=== PATIENT | female | born 1930 | race Caucasian/White ===

== ENCOUNTER 2016-11-15 04:56 | Inpatient (IN) | payer MEDICARE, OTHER ==
--- NOTE | 2016-11-15 04:58 | ED ---
General Adult HPI - General Stated complaint: fall, leg injury Time Seen by Provider: 11/15/16 04:57 Source: RN notes reviewed - History of Present Illness Initial comments: This is an 86-year-old female who states she was walking a little too fast, and she fell she couldn't get back on her feet because her left hip was hurting. Patient crawled to the phone and called EMS. Patient states she had no symptoms prior to the fall. She denies any headache she denies any numbness weakness. Patient denies any chest pain difficult breathing shortness of breath or palpitations. Patient's only complaint currently is pain in the left hip. Patient's history is poor due to a language barrier. - Related Data Home Medications Medication Instructions Recorded Confirmed ALPRAZolam [Xanax] 0.25 tab PO DAILY 01/02/16 01/03/16 Isosorbide Mononitrate ER [Imdur] 30 mg PO BID 01/02/16 01/03/16 Omeprazole [PriLOSEC] 20 mg PO BID 01/02/16 01/03/16 Zolpidem [Ambien] 10 mg PO HS 01/02/16 01/03/16 Ibuprofen [Motrin] 600 mg PO BID PRN 01/03/16 01/03/16 Levothyroxine Sodium [Synthroid] 100 mcg PO DAILY 01/03/16 01/03/16 Losartan/Hydrochlorothiazide 1 tab PO DAILY 01/03/16 01/03/16 [Hyzaar 100-25 Tablet] Allergies Allergy/AdvReac Type Severity Reaction Status Date / Time No Known Allergies Allergy Verified 01/03/16 11:32 Review of Systems ROS Statement: Those systems with pertinent positive or pertinent negative responses have been documented in the HPI. ROS Other: All systems not noted in ROS Statement are negative. Past Medical History Past Medical History: Hypertension, Thyroid Disorder Additional Past Medical History / Comment(s): kidney infection, anxiety, hypothyroidism, osteoarthritis of the left knee History of Any Multi-Drug Resistant Organisms: None Reported Past Surgical History: No Surgical Hx Reported Additional Past Surgical History / Comment(s): Bilateral cataract removal and intraocular lens implants Past Psychological History: Anxiety Smoking Status: Never smoker Past Alcohol Use History: None Reported Additional Past Alcohol Use History / Comment(s): Patient states she is a nonsmoker and denies any alcohol use. Patient is from the [facility] and speaks limited French. Past Drug Use History: None Reported - Past Family History Mother Family Medical History: Thyroid Disorder Additional Family Medical History / Comment(s): Mother at age 86 had surgery on her neck, possibly heart surgery as well. Father Additional Family Medical History / Comment(s): Father when he was young while in the [employer]. Brother(s) Additional Family Medical History / Comment(s): Patient has 3 full brothers and one half-brother with no major medical problems. Sister(s) Additional Family Medical History / Comment(s): Patient has one half sister that of cancer of unknown type. Patient does not have any children. General Exam - General Exam Comments Initial Comments: GENERAL: Patient is well-developed and well-nourished. Patient is nontoxic and well- hydrated and is in mild distress. ENT: Neck is soft and supple. No significant lymphadenopathy is noted. Oropharynx is clear. Moist mucous membranes. Neck has full range of motion without eliciting any pain. EYES: The sclera were anicteric and conjunctiva were pink and moist. Extraocular movements were intact and pupils were equal round and reactive to light. Eyelids were unremarkable. PULMONARY: Unlabored respirations. Good breath sounds bilaterally. No audible rales rhonchi or wheezing was noted. CARDIOVASCULAR: There is a regular rate and rhythm without any murmurs gallops or rubs. ABDOMEN: Soft and nontender with normal bowel sounds. No palpable organomegaly was noted. There is no palpable pulsatile mass. SKIN: Skin is clear with no lesions or rashes and otherwise unremarkable. NEUROLOGIC: Patient is alert and oriented x3. Cranial nerves II through XII are grossly intact. Motor and sensory are also intact. Normal speech, volume and content. Symmetrical smile. MUSCULOSKELETAL: Patient is unable to move the left leg secondary to hip pain. Patient has tenderness to the lateral aspect of the left hip. The leg is also externally rotated and somewhat shortened. LYMPHATICS: No significant lymphadenopathy is noted PSYCHIATRIC: Normal psychiatric evaluation. Course Vital Signs 11/15/16 04:57 Temperature 97.1 F L Pulse Rate 97 Respiratory 20 Rate Blood Pressure 178/74 O2 Sat by Pulse 98 Oximetry Medical Decision Making - Medical Decision Making EKG shows a normal sinus rhythm at 66 bpm. It was on an 84 QRS is 90 QT intervals 468 QTC is 490. Patient's EKG is compared to an old EKG there is not any significant changes noted. Hip x-ray shows intertrochanteric hip fracture. Chest x-ray shows pulmonary edema. I gave the patient Lasix because of the pulmonary edema. I spoke with Dr. Haro and he agreed to admit the patient admitted the patient with admitting orders and consult the medicine for medical clearance. - Lab Data Result diagrams: 11/15/16 05:09 11/15/16 05:09 Lab Results 11/15/16 11/15/16 11/15/16 Range/Units 05:03 05:03 05:09 WBC 13.3 H (3.8-10.6) k/uL RBC 3.36 L (3.80-5.40) m/uL Hgb 10.5 L (11.4-16.0) gm/dL Hct 31.4 L (34.0-46.0) % MCV 93.5 (80.0-100.0) fL MCH 31.2 (25.0-35.0) pg MCHC 33.4 (31.0-37.0) g/dL RDW 13.6 (11.5-15.5) % Plt Count 255 (150-450) k/uL Neutrophils % 89 % Lymphocytes % 7 % Monocytes % 3 % Eosinophils % 1 % Basophils % 0 % Neutrophils # 11.8 H (1.3-7.7) k/uL Lymphocytes # 0.9 L (1.0-4.8) k/uL Monocytes # 0.5 (0-1.0) k/uL Eosinophils # 0.1 (0-0.7) k/uL Basophils # 0.0 (0-0.2) k/uL PT (9.0-12.0) sec INR (<1.1) APTT (22.0-30.0) sec Sodium (137-145) mmol/L Potassium (3.5-5.1) mmol/L Chloride (98-107) mmol/L Carbon Dioxide (22-30) mmol/L Anion Gap mmol/L BUN (7-17) mg/dL Creatinine (0.52-1.04) mg/dL Est GFR (MDRD) Af Amer (>60 ml/min/1.73 sqM) Est GFR (MDRD) Non-Af (>60 ml/min/1.73 sqM) Glucose (74-99) mg/dL Calcium (8.4-10.2) mg/dL Total Bilirubin (0.2-1.3) mg/dL AST (14-36) U/L ALT (9-52) U/L Alkaline Phosphatase (38-126) U/L Total Creatine Kinase 170 H (30-135) U/L CK-MB (CK-2) 2.7 H* (0.0-2.4) ng/mL CK-MB (CK-2) Rel Index 1.6 Troponin I 0.015 (0.000-0.034) ng/mL NT-Pro-B Natriuret Pep 1540 pg/mL Total Protein (6.3-8.2) g/dL Albumin (3.5-5.0) g/dL 11/15/16 11/15/16 Range/Units 05:09 05:09 WBC (3.8-10.6) k/uL RBC (3.80-5.40) m/uL Hgb (11.4-16.0) gm/dL Hct (34.0-46.0) % MCV (80.0-100.0) fL MCH (25.0-35.0) pg MCHC (31.0-37.0) g/dL RDW (11.5-15.5) % Plt Count (150-450) k/uL Neutrophils % % Lymphocytes % % Monocytes % % Eosinophils % % Basophils % % Neutrophils # (1.3-7.7) k/uL Lymphocytes # (1.0-4.8) k/uL Monocytes # (0-1.0) k/uL Eosinophils # (0-0.7) k/uL Basophils # (0-0.2) k/uL PT 11.1 (9.0-12.0) sec INR 1.1 (<1.1) APTT 22.7 (22.0-30.0) sec Sodium 140 (137-145) mmol/L Potassium 3.2 L (3.5-5.1) mmol/L Chloride 101 (98-107) mmol/L Carbon Dioxide 28 (22-30) mmol/L Anion Gap 11 mmol/L BUN 28 H (7-17) mg/dL Creatinine 1.31 H (0.52-1.04) mg/dL Est GFR (MDRD) Af Amer 46 (>60 ml/min/1.73 sqM) Est GFR (MDRD) Non-Af 38 (>60 ml/min/1.73 sqM) Glucose 169 H (74-99) mg/dL Calcium 8.6 (8.4-10.2) mg/dL Total Bilirubin 0.5 (0.2-1.3) mg/dL AST 22 (14-36) U/L ALT 27 (9-52) U/L Alkaline Phosphatase 101 (38-126) U/L Total Creatine Kinase (30-135) U/L CK-MB (CK-2) (0.0-2.4) ng/mL CK-MB (CK-2) Rel Index Troponin I (0.000-0.034) ng/mL NT-Pro-B Natriuret Pep pg/mL Total Protein 6.5 (6.3-8.2) g/dL Albumin 3.5 (3.5-5.0) g/dL Critical Care Time Critical Care Time: Yes Total Critical Care Time: 35 Disposition Clinical Impression: Fracture, intertrochanteric, left femur, Acute pulmonary edema Disposition: ADMITTED IP TO THIS [facility] Time of Disposition: 06:17
[2016-11-15 05:20] LABS: Basophils % (A) 0 %; CH 31.7; CHCM 34.1; Eosinophils # (A) 0.1 k/uL (0-0.7); Eosinophils % (A) 1 %; HCT 31.4 % (34.0-46.0); HDW 3.09; HGB 10.5 gm/dL (11.4-16.0); Luc # (Auto) 0.08; Luc % (Auto) 1; Lymphocytes # (A) 0.9 k/uL (1.0-4.8); Lymphocytes % (A) 7 %; MCH 31.2 pg (25.0-35.0); MCHC 33.4 g/dL (31.0-37.0); MCV 93.5 fL (80.0-100.0); Mean Platelet Volume 7.6; Monocytes # (A) 0.5 k/uL (0-1.0); Monocytes % (A) 3 %; Neutrophils # (A) 11.8 k/uL (1.3-7.7); Neutrophils % (A) 89 %; RBC 3.36 m/uL (3.80-5.40); RDW 13.6 % (11.5-15.5); WBC 13.3 k/uL (3.8-10.6); WBC (Perox) 13.18
[2016-11-15 05:30] LABS: Calcium 8.6 mg/dL (8.4-10.2); Potassium 3.2 mmol/L (3.5-5.1); Total Bilirubin 0.5 mg/dL (0.2-1.3); Total Protein 6.5 g/dL (6.3-8.2)
[2016-11-15 05:40] LABS: INR 1.1 (<1.1); Partial Thromboplastin Time 22.7 sec (22.0-30.0); Prothrombin Time 11.1 sec (9.0-12.0)
[2016-11-15 06:08] LABS: Creatine Kinase MB 2.7 ng/mL (0.0-2.4); Troponin I 0.015 ng/mL (0.000-0.034)
[2016-11-15] MEDS: FUROSEMIDE 10 MG/ML 4 ML VIAL IV STA ×2 (06:12→08:48)
--- NOTE | 2016-11-15 06:12 | XR ---
EXAMINATION TYPE: XR chest 2V DATE OF EXAM: 11/15/2016 5:20 AM COMPARISON: 01/15/2016 HISTORY: Difficulty in breathing, fall, weakness TECHNIQUE: Frontal and lateral views of the chest are obtained. FINDINGS: There is suggestion of mild CHF changes with perihilar pulmonary edema. There is possibility of chron ic interstitial lung disease changes. There is no focal pneumonia pleural effusion, or pneumothorax seen. The cardiac silhouette size is w ithin normal limits. The osseous structures are intact. IMPRESSION: 1. There is suggestion of mild CHF and perihilar pulmonary edema. 2. No focal pneumonia.
--- NOTE | 2016-11-15 06:15 | XR ---
EXAMINATION TYPE: XR Hip LT and AP Pelvis DATE OF EXAM: 11/15/2016 5:20 AM COMPARISON: NONE HISTORY: Left hip pain from fall TECHNIQUE: A single AP view of the pelvis is obtained. Two views of the left hip are obtained. FINDINGS: There is no acute fracture/dislocation evident in the pelvis. [id number] degenerativ e changes are present in both hip joints lumbosacral spine and sacroiliac joints. Vascular calcificat ions are noted. Two views of left hip show an acute comminuted intertrochanteric displaced fracture with superior dis placement of distal fracture fragment. Soft tissue swelling is suggested around the fracture site of proximal left femur.. IMPRESSION: 1. Acute comminuted displaced intertrochanteric fracture of left femur with surrounding soft tissue s welling. 2. Mild to moderate degenerative changes in the pelvic bones.
[2016-11-15] MEDS ORDERED: FUROSEMIDE 10 MG/ML 4 ML VIAL IV SCH (06:30)
[2016-11-15] MEDS: FUROSEMIDE 10 MG/ML 2 ML VIAL IV SCH ×3 (08:49→23:00)
--- NOTE | 2016-11-15 11:02 | ECHOF ---
Referral Reason:preop, eval valves, lvf MEASUREMENTS -------- HEIGHT: 160.0 cm WEIGHT: 72.6 kg BP: 160/81 IVSd: 1.4 cm (0.6 - 1.1) LVIDd: 3.5 cm (3.9 - 5.3) LVPWd: 1.3 cm (0.6 - 1.1) IVSs: 1.7 cm LVIDs: 1.8 cm LVPWs: 1.9 cm Ao Diam: 2.3 cm (2.0 - 3.7) AV Cusp: 1.1 cm (1.5 - 2.6) LA Diam: 3.6 cm (2.7 - 3.8) MV EXCURSION: 13.883 mm (> 18.000) MV EF SLOPE: 28 mm/s (70 - 150) EPSS: 1.4 cm MV E John: 1.02 m/s MV DecT: 323 ms MV A John: 1.02 m/s MV E/A Ratio: 1.00 AV maxP.20 mmHg AV meanP.23 mmHg AR PHT: 412 ms RAP: 5.00 mmHg RVSP: 11.87 mmHg FINDINGS -------- Sinus rhythm. This was a technically good study. There is mild concentric left ventricular hypertrophy. Overall left ventricular systolic function is normal with, an EF between 55 - 60 %. The right ventricle is normal in size and function. The left atrium is normal in size. The right atrium is normal in size. Aortic valve is trileaflet and is mildly thickened. Trace to mild aortic regurgitation. The mitral valve leaflets are mildly thickened. Mild mitral annular calcification present. Mild mitral regurgitation is present. Mild tricuspid regurgitation present. The right ventricular systolic pressure, as measured by Doppler, is 11.87mmHg. Trace/mild (physiologic) pulmonic regurgitation. The aortic root size is normal. The pericardium is normal. CONCLUSIONS -------- 1. Sinus rhythm. 2. The mitral valve leaflets are mildly thickened. 3. Mild mitral annular calcification present. 4. Mild mitral regurgitation is present. 5. Mild tricuspid regurgitation present. 6. The right ventricular systolic pressure, as measured by Doppler, is 11.87mmHg. 7. Trace/mild (physiologic) pulmonic regurgitation. 8. The aortic root size is normal. 9. The pericardium is normal. 10. This was a technically good study. 11. There is mild concentric left ventricular hypertrophy. 12. Overall left ventricular systolic function is normal with, an EF between 55 - 60 %. 13. The right ventricle is normal in size and function. 14. The left atrium is normal in size. 15. The right atrium is normal in size. 16. Aortic valve is trileaflet and is mildly thickened. 17. Trace to mild aortic regurgitation. [employer]AL [employer]CISION MACHINE ASSEMBLER: Brit Villalpando RDCS
--- NOTE | 2016-11-15 11:07 | P.CONS ---
History of Present Illness - Reason for Consult Consult date: 11/15/15 Preoperative medical clearance Requesting physician: Justino Haro - Chief Complaint Left IT fracture - History of Present Illness This is an 86-year-old female one of Dr. Villagran with a previous medical history significant for hypertension and hypertensive cardiovascular disease, hypothyroidism, osteoarthritis, anxiety, CAD post left heart catheter physician back in December 2015 that showed critical stenosis of the LAD and the LCx along with severe aortic valve stenosis, patient was admitted back and drover service in 01/03/2016 when she was admitted to the hospital with difficulty in breathing thought to be due to acute on top of chronic diastolic heart failure along with severe aortic valve stenosis at that time she was referred to [facility] for staging angioplasty and TAVR , patient apparently fell at home and landed on her left hip and she ended up coming to the ER at [facility] where she was found to have an acute displaced IT fracture of the left femur, she was admitted under orthopedic surgery we were asked to see the patient for clearance and she will be seen in consultation by cardiology for medical and cardiology clearance. We will obtain echocardiogram at this point in time to evaluate her LV function. Review of Systems Constitutional: Denies chills, Denies chronic headaches, Denies lethargy, Denies malaise, Denies weakness, Denies weight gain, Denies weight loss Eyes: denies blurred vision, denies bulging eye Ears: deny: decreased hearing Ears, nose, mouth and throat: Denies dental pain, Denies neck lump, Denies swelling in throat, Denies sore throat Cardiovascular: Reports decreased exercise tolerance, Reports dyspnea on exertion, Reports high blood pressure, Reports shortness of breath, Denies chest pain, Denies irregular heart beat, Denies rapid heart beat, Denies syncope Respiratory: Reports dyspnea, Denies congestion, Denies cough, Denies cough with sputum, Denies home oxygen, Denies sleep apnea, Denies snoring, Denies wheezing Gastrointestinal: Denies abdominal pain, Denies bloating, Denies change in bowel habits, Denies coffee ground emesis, Denies diarrhea, Denies heartburn, Denies hematemesis, Denies hematochezia, Denies loss of appetite, Denies nausea , Denies vomiting Genitourinary: Denies dysuria, Denies hematuria Menstruation: Reports postmenopausal Musculoskeletal: Reports fractures, Reports frequent falls, Reports gait dysfunction, Denies myalgias Musculoskeletal: left: hip pain, hip stiffness, hip swelling, absent: ankle pain , ankle stiffness, ankle swelling, elbow pain, elbow stiffness, elbow swelling, foot pain, foot stiffness, foot swelling, hand pain, hand stiffness, hand swelling, knee pain, knee stiffness, knee swelling, shoulder pain, shoulder stiffness, shoulder swelling, wrist pain, wrist stiffness, wrist swelling Integumentary: Denies pruritus, Denies rash Neurological: Denies numbness, Denies weakness Psychiatric: Denies anxiety, Denies depression Endocrine: Denies fatigue, Denies weight change Past Medical History Past Medical History: Coronary Artery Disease (CAD), GERD/Reflux, Hyperlipidemia , Hypertension, Osteoarthritis (OA), Renal Disease, Thyroid Disorder Additional Past Medical History / Comment(s): Pt is a Religious and cannot receive blood. 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 That was done at [facility]. History of Any Multi-Drug Resistant Organisms: None Reported Past Surgical History: No Surgical Hx Reported, Cardiac Valve Replacement, Heart Catheterization Additional Past Surgical History / Comment(s): 01/2016 TAVR at [facility] , bilateral cataract removal and intraocular lens implants with complications. Past Anesthesia/Blood Transfusion Reactions: No Reported Reaction Past Psychological History: Anxiety Additional Psychological History / Comment(s): Pt resides alone. She has caretakers with whom she is very close. She has a cane and walker. She is a Religious and receive no blood. Smoking Status: Never smoker Past Alcohol Use History: None Reported Additional Past Alcohol Use History / Comment(s): Patient states she is a nonsmoker and denies any alcohol use. Patient is from the [facility] and speaks limited Tajik. Past Drug Use History: None Reported - Past Family History Mother Family Medical History: Thyroid Disorder Additional Family Medical History / Comment(s): Mother at age 86 had surgery on her neck, possibly heart surgery as well. Father Additional Family Medical History / Comment(s): Father when he was young while in the [employer]. Brother(s) Additional Family Medical History / Comment(s): Patient has 3 full brothers and one half-brother with no major medical problems. Sister(s) Additional Family Medical History / Comment(s): Patient has one half sister that of cancer of unknown type. Patient does not have any children. Medications and Allergies Home Medications Medication Instructions Recorded Confirmed Type ALPRAZolam [Xanax] 0.25 tab PO DAILY PRN 01/02/16 11/15/16 History Isosorbide Mononitrate ER [Imdur] 30 mg PO DAILY 01/02/16 11/15/16 History Omeprazole [PriLOSEC] 40 mg PO DAILY 01/02/16 11/15/16 History Zolpidem [Ambien] 10 mg PO HS 01/02/16 11/15/16 History Ibuprofen [Motrin] 600 mg PO BID PRN 01/03/16 11/15/16 History Levothyroxine Sodium [Synthroid] 100 mcg PO DAILY 01/03/16 11/15/16 History Aspirin EC [Ecotrin Low Dose] 81 mg PO DAILY 11/15/16 11/15/16 History Atorvastatin [Lipitor] 40 mg PO DAILY 11/15/16 11/15/16 History Carvedilol [Coreg] 3.125 mg PO BID 11/15/16 11/15/16 History Clopidogrel [Plavix] 75 mg PO DAILY 11/15/16 11/15/16 History Ferrograd Folic 325/0.35mg Xr Tab 1 tab PO BID 11/15/16 11/15/16 History Furosemide [Lasix] 40 mg PO BID 11/15/16 11/15/16 History Multivitamins, Thera [Multivitamin] 1 tab PO DAILY 11/15/16 11/15/16 History Allergies Allergy/AdvReac Type Severity Reaction Status Date / Time ampicillin Allergy Swelling Verified 11/15/16 07:17 erythromycin base Allergy Swelling Verified 11/15/16 07:17 Physical Exam Vitals: Vital Signs Pulse Pulse Resp BP BP Pulse Ox 11/15/16 08:57 77 18 160/81 98 11/15/16 07:31 62 16 187/77 96 Intake and Output 01/08/17 01/09/17 01/09/17 22:59 06:59 14:59 Other: Voiding Method Indwelling Catheter - Constitutional General appearance: average body habitus, no acute distress - EENT Eyes: anicteric sclerae, PERRLA, no ptosis, no scleral icterus, normal appearance ENT: hearing grossly normal, normal oropharynx, no thrush Ears: bilateral: normal - Neck Neck: no lymphadenopathy, normal ROM, no rigidity, no stridor, no thyromegaly Carotids: bilateral: upstroke normal Thyroid: bilateral: normal size - Respiratory Respiratory: bilateral: diminished, negative: dullness, rales, rhonchi, wheezing , prolonged expiration, prolonged inspiration - Cardiovascular Rhythm: regular Heart sounds: normal: S1, S2 Abnormal Heart Sounds: systolic murmur, no rub, no click - Gastrointestinal General gastrointestinal: normal bowel sounds, soft, no splenomegaly, no tenderness, umbilical hernia - Integumentary Integumentary: normal, normal turgor - Neurologic Neurologic: CNII-XII intact - Musculoskeletal Musculoskeletal: generalized weakness - Psychiatric Psychiatric: A&O x's 3, appropriate affect, intact judgment & insight Results CBC & Chem 7: 11/15/16 05:09 11/15/16 05:09 Assessment and Plan Plan: Assessment and plan: 1. Status post a fall with left IT fracture. Patient is scheduled to go for intramedullary nailing of the left hip, patient has a significant cardiac history and she underwent a TAVR at to [facility] back in January 2016, and I believe she underwent staging angioplasty of LAD and LCx, we will obtain echo care gram at this time to evaluate LV function, we will obtain cardiology consultation, patient did receive at a dose of Lasix 40 mg IV push earlier today because of significant shortness of breath thought to be due to acute diastolic heart failure, we will obtain cardiology consultation from Dr. Leiva. 2. CAD post angioplasty of LAD and LCx. Hold aspirin and Plavix for now, continue Imdur 30 mg orally once every day, continue Coreg 3.125 mg orally twice every day, continue Lipitor 40 mg orally once every day. 3. History of severe aortic valve stenosis status post TAVR, we will obtain echo care gram for evaluation. 4. Chronic diastolic heart failure. Patient did receive a dose of Lasix, hip ever IV, start the patient on Coreg 3.125 mg orally twice every day. 5. Chronic kidney disease stage III. Stable at this time. 6. Paroxysmal atrial fibrillation. Currently in sinus rhythm. Stable. 7. Hypothyroidism. Continue Synthroid 100 g orally once every day. 8. History of gout.. Stable at this time. 9. Osteoarthritis. Stable. 10. Anxiety disorder. Stable at this time. 11. DVT prophylaxis. Patient will go on Lovenox 30 mg subcutaneously once every day. 12. GI prophylaxis. Continue omeprazole 20 mg orally once every day. 13. Thank you Dr. Haro for allowing me to participate in the care of your patient, patient will be seen in consultation by cardiology prior to her surgical intervention, I do not see any contraindication for the proposed surgical intervention, we will continue to follow the patient along with you.
[2016-11-15] MEDS: NITROGLYCERIN OINT 1 INCH/GM PACKET TOPICAL SCH ×4 (11:52→20:46)
[2016-11-15] MEDS: POTASSIUM CHLORIDE 20 MEQ, LIDOCAINE 2% INJ 20 MG in SODIUM CHLORIDE 0.9% 100 ML IVPB SCH ×7 (11:52→17:58)
[2016-11-15] MEDS ORDERED: hydrALAZINE HCL 20 MG/ML 1 ML VIAL IVP PRN (12:02)
--- NOTE | 2016-11-15 12:17 | P.CRDCN ---
History of Present Illness Consult date: 11/15/16 Chief complaint: Pain all over the body History of present illness: This is a pleasant 86-year-old female patient with a past medical history significant for CAD, aortic valve disease and status post TAVR, hypertension, and dyslipidemia, fell at home and fractured her left hip. The plan is to proceed with left hip surgery. From the cardiac vascular standpoint of view, she denies having any chest pain or discomfort at this point, and denies having any shortness of breath, dizziness or lightheadedness. The patient did not lose her consciousness. Hemodynamically she continues to be stable with slightly uncontrolled high blood pressure which I think is related to the pain in the left hip. From the cardiac standpoint, the patient can proceed with the surgery. I will follow up with the echocardiogram which was performed earlier today. Past Medical History Past Medical History: Coronary Artery Disease (CAD), GERD/Reflux, Hyperlipidemia , Hypertension, Osteoarthritis (OA), Renal Disease, Thyroid Disorder Additional Past Medical History / Comment(s): Pt is a Sabianism and cannot receive blood. 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 [place] [facility] [place] of Any Multi-Drug Resistant Organisms: None Reported Past Surgical History: No Surgical Hx Reported, Cardiac Valve Replacement, Heart Catheterization Additional Past Surgical History / Comment(s): 01/2016 TAVR at [facility] , bilateral cataract removal and intraocular lens implants with complications. Past Anesthesia/Blood Transfusion Reactions: No Reported Reaction Past Psychological History: Anxiety Additional Psychological History / Comment(s): Pt resides alone. She has caretakers with whom she is very close. She has a cane and walker. She is a Sabianism and receive no blood. Smoking Status: Never smoker Past Alcohol Use History: None Reported Additional Past Alcohol Use History / Comment(s): Patient states she is a nonsmoker and denies any alcohol use. Patient is from the [facility] and speaks limited Greek. Past Drug Use History: None Reported - Past Family History Mother Family Medical History: Thyroid Disorder Additional Family Medical History / Comment(s): Mother at age 86 had surgery on her neck, possibly heart surgery as well. Father Additional Family Medical History / Comment(s): Father when he was young while in the [employer]. Brother(s) Additional Family Medical History / Comment(s): Patient has 3 full brothers and one half-brother with no major medical problems. Sister(s) Additional Family Medical History / Comment(s): Patient has one half sister that of cancer of unknown type. Patient does not have any children. Medications and Allergies Home Medications Medication Instructions Recorded Confirmed Type ALPRAZolam [Xanax] 0.25 tab PO DAILY PRN 01/02/16 11/15/16 History Isosorbide Mononitrate ER [Imdur] 30 mg PO DAILY 01/02/16 11/15/16 History Omeprazole [PriLOSEC] 40 mg PO DAILY 01/02/16 11/15/16 History Zolpidem [Ambien] 10 mg PO HS 01/02/16 11/15/16 History Ibuprofen [Motrin] 600 mg PO BID PRN 01/03/16 11/15/16 History Levothyroxine Sodium [Synthroid] 100 mcg PO DAILY 01/03/16 11/15/16 History Aspirin EC [Ecotrin Low Dose] 81 mg PO DAILY 11/15/16 11/15/16 History Atorvastatin [Lipitor] 40 mg PO DAILY 11/15/16 11/15/16 History Carvedilol [Coreg] 3.125 mg PO BID 11/15/16 11/15/16 History Clopidogrel [Plavix] 75 mg PO DAILY 11/15/16 11/15/16 History Ferrograd Folic 325/0.35mg Xr Tab 1 tab PO BID 11/15/16 11/15/16 History Furosemide [Lasix] 40 mg PO BID 11/15/16 11/15/16 History Multivitamins, Thera [Multivitamin] 1 tab PO DAILY 11/15/16 11/15/16 History Allergies Allergy/AdvReac Type Severity Reaction Status Date / Time ampicillin Allergy Swelling Verified 11/15/16 07:17 erythromycin base Allergy Swelling Verified 11/15/16 07:17 Physical Exam Vitals: Vital Signs Pulse Pulse Resp BP BP Pulse Ox 11/15/16 11:35 62 16 160/81 98 01/09/17 08:57 77 18 160/81 98 11/15/16 07:31 62 16 187/77 96 Intake and Output 11/14/16 11/15/16 11/15/16 22:59 06:59 14:59 Output Total 1500 Balance -1500 Output: Urine 1500 Other: Voiding Method Indwelling Catheter - Constitutional General appearance: mild distress - Respiratory Respiratory: bilateral: diminished - Cardiovascular Rhythm: regular Heart sounds: normal: S1, S2 Results 11/15/16 05:09 11/15/16 05:09 Current Medications Generic Name Dose Route Start Last Admin Trade Name Freq PRN Reason Stop Dose Admin Furosemide 20 mg 11/15/16 08:00 11/15/16 08:49 Lasix IV Not Given Q8HR AARON Hydralazine HCl 20 mg 11/15/16 12:02 Apresoline IVP Q4HR PRN Blood Pressure - High Potassium Chloride 20 meq/ 111 mls @ 55.5 mls/hr 11/15/16 12:00 11/15/16 11: 52 Lidocaine HCl 20 mg/ Sodium IVPB 11/15/16 17:59 55.5 mls/hr Chloride Q2HR AARON Administration Nitroglycerin 1 inch 11/15/16 09:00 11/15/16 11:52 Nitro-Bid Oint TOPICAL Not Given QID AARON Intake and Output 11/14/16 11/15/16 11/15/16 22:59 06:59 14:59 Output Total 1500 Balance -1500 Output: Urine 1500 Other: Voiding Method Indwelling Catheter Assessment and Plan Plan: Assessment #1 status post fall and left hip fracture #2 CAD #3 aortic valve disease #4 multiple comorbid conditions Plan #1 the patient can proceed with the surgery #2 we will continue following up with the patient
--- NOTE | 2016-11-15 13:19 | P.HPOR ---
<Saji Polanco - Last Filed: 11/15/16 13:10> History of Present Illness H&P Date: 11/15/16 Chief Complaint: Left hip pain/fracture Patient is a pleasant 86-year-old female seen in the emergency department where she was presented early this morning after a fall at home. She states she was walking too fast at her apartment where her leg gave out and she fell. She developed left hip pain and had difficulty getting back to her feet. She was transported to the emergency department via EMS. X-rays have shown a displaced intertrochanteric fracture at the left hip. She denies losing consciousness. She currently denies numbness or tingling down her left lower extremity. She denies any other complaints. She is of [place] descent and Romanian is her second language. There is some communication barrier with discussion this afternoon. Overall I believe she understands clearly her diagnosis and treatment options. She is also a Mandaen and does not receive blood products. She also has a history of coronary artery disease and valve dysfunction where she had previous surgeries. Review of systems is negative for fever, chills, chest pain, shortness breath, nausea, vomiting, dizziness, headaches, rashes, bleeding, swelling or other. Review of Systems All systems: negative (Left hip pain) Past Medical History Past Medical History: Coronary Artery Disease (CAD), GERD/Reflux, Hyperlipidemia , Hypertension, Osteoarthritis (OA), Renal Disease, Thyroid Disorder Additional Past Medical History / Comment(s): Pt is a Mandaen and cannot receive blood. 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 That was done at [facility] [place]. History of Any Multi-Drug Resistant Organisms: None Reported Past Surgical History: No Surgical Hx Reported, Cardiac Valve Replacement, Heart Catheterization Additional Past Surgical History / Comment(s): 01/2016 TAVR at [facility] , bilateral cataract removal and intraocular lens implants with complications. Past Anesthesia/Blood Transfusion Reactions: No Reported Reaction Past Psychological History: Anxiety Additional Psychological History / Comment(s): Pt resides alone. She has caretakers with whom she is very close. She has a cane and walker. She is a Mandaen and receive no blood. Smoking Status: Never smoker Past Alcohol Use History: None Reported Additional Past Alcohol Use History / Comment(s): Patient states she is a nonsmoker and denies any alcohol use. Patient is from the [facility] and speaks limited Romanian. Past Drug Use History: None Reported - Past Family History Mother Family Medical History: Thyroid Disorder Additional Family Medical History / Comment(s): Mother at age 86 had surgery on her neck, possibly heart surgery as well. Father Additional Family Medical History / Comment(s): Father when he was young while in the [employer]. Brother(s) Additional Family Medical History / Comment(s): Patient has 3 full brothers and one half-brother with no major medical problems. Sister(s) Additional Family Medical History / Comment(s): Patient has one half sister that of cancer of unknown type. Patient does not have any children. Medications and Allergies Home Medications Medication Instructions Recorded Confirmed Type ALPRAZolam [Xanax] 0.25 tab PO DAILY PRN 01/02/16 11/15/16 History Isosorbide Mononitrate ER [Imdur] 30 mg PO DAILY 01/02/16 11/15/16 History Omeprazole [PriLOSEC] 40 mg PO DAILY 01/02/16 11/15/16 History Zolpidem [Ambien] 10 mg PO HS 01/02/16 11/15/16 History Ibuprofen [Motrin] 600 mg PO BID PRN 01/03/16 11/15/16 History Levothyroxine Sodium [Synthroid] 100 mcg PO DAILY 01/03/16 11/15/16 History Aspirin EC [Ecotrin Low Dose] 81 mg PO DAILY 11/15/16 11/15/16 History Atorvastatin [Lipitor] 40 mg PO DAILY 11/15/16 11/15/16 History Carvedilol [Coreg] 3.125 mg PO BID 11/15/16 11/15/16 History Clopidogrel [Plavix] 75 mg PO DAILY 11/15/16 11/15/16 History Ferrograd Folic 325/0.35mg Xr Tab 1 tab PO BID 11/15/16 11/15/16 History Furosemide [Lasix] 40 mg PO BID 11/15/16 11/15/16 History Multivitamins, Thera [Multivitamin] 1 tab PO DAILY 11/15/16 11/15/16 History Allergies Allergy/AdvReac Type Severity Reaction Status Date / Time ampicillin Allergy Swelling Verified 11/15/16 07:17 erythromycin base Allergy Swelling Verified 11/15/16 07:17 Physical Examination Inspection of the left hip and lower extremity are benign. There are no wounds , lacerations, erythema or ecchymoses. There is some mild shortening and external rotation. Range of motion of the left hip is not tested due to the fracture. She has full sensation to light touch throughout the left lower extremity. She is able to plantarflex and dorsiflex her foot and toes. Calf is soft and nontender. There is 2+ dorsalis pedis pulse present and less than 2 second cap refill present. Results - Labs Result Diagrams: 11/15/16 05:09 11/15/16 05:09 - Diagnostic results Hip x-ray: report reviewed, image reviewed (Displaced intertrochanteric left femur fracture) Assessment and Plan (1) Fracture, intertrochanteric, left femur Narrative/Plan: This patient has been reviewed with Dr. Haro. He has reviewed her x-rays and spoken with the ER staff. Plan is to proceed with surgical intervention this afternoon including IT nail for her intertrochanteric femur fracture on the left. She has been nothing by mouth since this morning. She has been cleared by internal medicine and cardiology. Clindamycin has been ordered for preoperative antibiotics. Procedure and consent has been reviewed and signed. She understands the benefits, possible complications and risks of the surgery. She elects to proceed. Postoperatively she will be likely transferred to 6 selective unit for cardiac monitoring where she will also be followed by internal medicine and cardiology. We will request their recommendations for postoperative anticoagulation and postoperative medical management. Status: Acute Time with Patient: Greater than 30 (Interviewing patient, reviewing x-rays and labs and history, discussing care with health care team) <Justino Haro - Last Filed: 11/15/16 13:53> Results - Labs Result Diagrams: 11/15/16 05:09 11/15/16 05:09 Assessment and Plan (1) Fracture, intertrochanteric, left femur Status: Acute Plan: I agree with the above history and physical. I met with the patient preoperatively and discussed treatment with her and her family. We discussed the standard of care for hip fractures is operative stabilization to facilitate early motion. Based on her intertrochanteric fracture pattern my recommendation was to perform an intramedullary hip screw. We discussed the potential risks and complication of surgery. The patient understands that she is at a higher risk of having complications due to her multiple medical problems. Risks discussed with the patient and her family include but are not limited to risks from anesthesia, risk of superficial infection, risk of deep infection, risk of delayed wound healing, risk of intraoperative fracture, risk of fracture nonunion, risk of fracture malunion, risk of failure of hardware with varus collapse and need for further surgery, risk of damage to local blood vessels or nerves, risk of difficulty ambulating, risk of inability to ambulate , risk of fall following surgery, risk of periprosthetic fracture following surgery, risk of chronic pain, risk of chronic swelling, need for further surgery, and possible postoperative medical complications including DVT, PE, acute coronary event, stroke, heart failure, anemia, urinary tract infection, pneumonia, pressure ulcer, and possibly loss of limb or life. The patient understands elevated risks due to her multiple medical problems and provided both verbal and written consent. The patient also understands the possibility of blood loss during and after surgery and acute blood loss anemia I could affect her cardiac function. Due to her being a Mandaen she is unable to obtain blood products understands what this should mean postoperatively.
[2016-11-15] MEDS ORDERED: IV FLUID CONTINUATION 1,000 ML IV ONE (13:58)
[2016-11-15] MEDS ORDERED: ROCURONIUM BROMIDE 10 MG/ML 10 ML VIAL IV ONE (14:56)
[2016-11-15] MEDS ORDERED: fentaNYL (PF) 50 MCG/ML 2 ML AMP ONE (14:56)
[2016-11-15] MEDS ORDERED: PROPOFOL 10 MG/ML 100 ML VIAL IV ONE (14:56)
[2016-11-15] MEDS ORDERED: DEXTROSE 5% IN WATER 50 ML BAG ONE (14:56)
[2016-11-15] MEDS ORDERED: LIDOCAINE 1% INJ 10MG/ML (20 ML MDV) ONE (14:56)
[2016-11-15] MEDS ORDERED: SUCCINYLCHOLINE CHLORIDE 100 MG/5 ML SYR IV ONE (14:56)
[2016-11-15] MEDS ORDERED: MIDAZOLAM 2 MG/2 ML VIAL ONE (14:56)
[2016-11-15] MEDS ORDERED: CLINDAMYCIN 150 MG/ML 4 ML VIAL ONE (14:56)
[2016-11-15] MEDS ORDERED: PHENYLEPHRINE-0.9% NACL SYG 1 MG/10 ML SYRINGE ONE (14:56)
[2016-11-15] MEDS ORDERED: DIAZEPAM 5 MG TAB PO PRN (15:02)
[2016-11-15] MEDS ORDERED: ONDANSETRON 4 MG/2 ML VIAL IVP PRN (15:02)
[2016-11-15] MEDS ORDERED: hydrOXYzine PAMOATE 25 MG CAP PO PRN (15:02)
[2016-11-15] MEDS ORDERED: HYDROmorphone 1 MG/ML 1 ML SYRINGE IVP PRN ×2 (15:02)
[2016-11-15] MEDS ORDERED: MAGNESIUM HYDROXIDE 2,400 MG/10 ML CUP PO PRN (15:02)
[2016-11-15] MEDS ORDERED: NALOXONE 0.4 MG/ML 1 ML VIAL IV PRN (15:02)
[2016-11-15] MEDS: CLINDAMYCIN 600 MG in DEXTROSE 5% IN WATER 50 ML IVPB ONE ×4 (15:11→19:44)
[2016-11-15] MEDS ORDERED: CLINDAMYCIN 600 MG in DEXTROSE 5% IN WATER 50 ML IVPB SCH ×2 (16:00)
[2016-11-15] MEDS: HYDROmorphone 1 MG/ML 1 ML SYRINGE IVP PRN ×4 (16:40→17:20)
--- NOTE | 2016-11-15 16:48 | XR ---
Limited left hip HISTORY: Open reduction internal fixation, fracture 2 intraoperative C-arm images document the procedure
--- NOTE | 2016-11-15 16:48 | FL ---
EXAMINATION TYPE: FL guidance operating room DATE OF EXAM: 11/15/2016 3:58 PM COMPARISON: NONE HISTORY: Left hip open reduction internal fixation Fluoroscopy support supplied to the referring clinician. See dictated report from orthopedic surgery , 1 minute 32 seconds fluoroscopy time, 2 intraoperative C-arm images document the procedure
[2016-11-15] MEDS: LACTATED RINGERS 1,000 ML IV SCH (17:50)
[2016-11-15] MEDS: SENNOSIDES-DOCUSATE SODIUM 1 EACH TAB PO SCH (20:45)
[2016-11-15] MEDS: CLINDAMYCIN 600 MG in DEXTROSE 5% IN WATER 50 ML IVPB SCH ×2 (20:47)
[2016-11-15] MEDS: TEMAZEPAM 15 MG CAP PO PRN (23:09)
[2016-11-16] MEDS: HYDROmorphone 1 MG/ML 1 ML SYRINGE IVP PRN (03:13)
[2016-11-16] MEDS: LACTATED RINGERS 1,000 ML IV SCH ×2 (05:56→17:50)
[2016-11-16] MEDS: CLINDAMYCIN 600 MG in DEXTROSE 5% IN WATER 50 ML IVPB SCH ×2 (05:58)
[2016-11-16 06:44] LABS: Basophils % (A) 0 %; CH 31.6; CHCM 33.6; Eosinophils % (A) 0 %; HCT 24.8 % (34.0-46.0); HDW 3.04; Luc # (Auto) 0.08; Luc % (Auto) 1; Lymphocytes % (A) 13 %; MCH 30.8 pg (25.0-35.0); MCHC 32.6 g/dL (31.0-37.0); MCV 94.4 fL (80.0-100.0); Mean Platelet Volume 7.6; Monocytes # (A) 0.4 k/uL (0-1.0); Monocytes % (A) 5 %; Neutrophils # (A) 6.4 k/uL (1.3-7.7); Neutrophils % (A) 80 %; RBC 2.63 m/uL (3.80-5.40); WBC (Perox) 8.36
[2016-11-16 06:50] LABS: HGB 8.1 gm/dL (11.4-16.0)
[2016-11-16 07:04] LABS: Calcium 8.1 mg/dL (8.4-10.2); Potassium 3.7 mmol/L (3.5-5.1)
--- NOTE | 2016-11-16 07:07 | XR ---
EXAMINATION TYPE: XR Hip Limited LT DATE OF EXAM: 11/15/2016 4:55 PM COMPARISON: 11/15/2016 HISTORY: Postop There is postsurgical change in near anatomic alignment. There is soft tissue edema and emphysema. S urgical heather noted. Fracture line through the femoral neck noted with displacement of the lesser t rochanter. Vascular calcifications and diffuse osteopenia noted. IMPRESSION: 1. Postoperative change. Appears in near-anatomic alignment.
[2016-11-16] MEDS: ENOXAPARIN 30 MG/0.3 ML SYRINGE SQ SCH (08:03)
[2016-11-16] MEDS: HYDROcodone/APAP 5-325MG 1 EACH TAB PO PRN ×2 (08:03→13:19)
[2016-11-16] MEDS: FUROSEMIDE 10 MG/ML 2 ML VIAL IV SCH (08:04)
[2016-11-16] MEDS: NITROGLYCERIN OINT 1 INCH/GM PACKET TOPICAL SCH ×2 (08:04→21:18)
--- NOTE | 2016-11-16 10:36 | P.PN ---
Subjective Principal diagnosis: Left IT fracture Patient is pleasant 86 yo female seen at bedside today. She is post op day #1 from left IT nail and screw. She has pain at operative site as expected. She denies any new complaints. She denies numbness, tingling, or calf pain. ROS is negative for fever, chills, chest pain, or SOB. Objective - Vital Signs Vital signs: Vital Signs Temp 98.2 F 11/16/16 03:38 Pulse 77 11/16/16 03:38 Resp 16 11/16/16 03:39 BP 135/64 11/16/16 03:38 Pulse Ox 99 11/15/16 23:03 Intake & Output 11/15/16 11/16/16 11/16/16 18:59 06:59 18:59 Intake Total 454 150 Output Total 1800 750 Balance -1346 -600 Weight 73.5 kg Intake: IV 454 Oral 150 Output: Urine 1700 750 Estimated Blood Loss 100 Other: Voiding Method Indwelling Catheter Indwelling Catheter - Exam Inspection of left hip and leg is benign. There is no active bleeding or drainage from surgical site. Neurovascular status is intact. Sensation to light touch is intact throughout lower extremity. She can dorsiflex and plantar flex foot and toes. 2+ dorsalis pedis pulses and less than 2 sec cap refill intact. Calf is soft and nontender. - Constitutional General appearance: Present: no acute distress - Psychiatric Psychiatric: Present: A&O x's 3, appropriate affect, intact judgment & insight - Labs CBC & Chem 7: 11/16/16 06:18 11/16/16 06:15 Labs: Abnormal Lab Results - Last 24 Hours (Table) 11/15/16 11/16/16 11/16/16 Range/Units 13:42 06:15 06:18 RBC 2.63 L (3.80-5.40) m/uL Hgb 8.1 L D (11.4-16.0) gm/dL Hct 24.8 L (34.0-46.0) % Potassium 3.2 L (3.5-5.1) mmol/L BUN 30 H (7-17) mg/dL Creatinine 1.40 H (0.52-1.04) mg/dL Glucose 140 H (74-99) mg/dL Calcium 8.1 L (8.4-10.2) mg/dL Assessment and Plan (1) Fracture, intertrochanteric, left femur Narrative/Plan: She will continue with routine post op orthopedic protocol including pain management, physical therapy, wound care and DVT prophylaxis. Cardiology and IM is following as well for post op medical management. Expect transfer to ECF in the next 1-2 days. Status: Acute Time with Patient: Less than 30
[2016-11-16] MEDS ORDERED: ALPRAZolam 0.25 MG TAB PO PRN (12:11)
--- NOTE | 2016-11-16 12:47 | P.PN ---
Subjective Principal diagnosis: CAD/AVR This is a pleasant 86-year-old female patient with a past medical history significant for CAD, aortic valve disease and status post TAVR, hypertension, and dyslipidemia, fell at home and fractured her left hip. The plan is to proceed with left hip surgery. From the cardiac vascular standpoint of view, she denies having any chest pain or discomfort at this point, and denies having any shortness of breath, dizziness or lightheadedness. The patient did not lose her consciousness. Hemodynamically she continues to be stable with slightly uncontrolled high blood pressure which I think is related to the pain in the left hip. The patient underwent left hip surgery which was uneventful. On follow-up with her today, the pain has improved significantly. She continues to be hemodynamically stable and she denies having any chest pain or chest discomfort or difficulty breathing. Objective - Vital Signs Vital signs: Vital Signs Temp 98.2 F 11/16/16 03:38 Pulse 77 11/16/16 03:38 Resp 16 11/16/16 03:39 BP 135/64 11/16/16 03:38 Pulse Ox 99 11/15/16 23:03 Intake & Output 11/15/16 11/16/16 11/16/16 18:59 06:59 18:59 Intake Total 454 150 200 Output Total 1800 750 Balance -1346 -600 200 Weight 73.5 kg Intake: IV 454 Oral 150 200 Output: Urine 1700 750 Estimated Blood Loss 100 Other: Voiding Method Indwelling Catheter Indwelling Catheter - Constitutional General appearance: Present: no acute distress - Respiratory Respiratory: bilateral: CTA - Cardiovascular Rhythm: regular Heart sounds: normal: S1, S2 - Labs CBC & Chem 7: 11/16/16 06:18 11/16/16 06:15 Labs: Abnormal Lab Results - Last 24 Hours (Table) 11/15/16 11/16/16 11/16/16 Range/Units 13:42 06:15 06:18 RBC 2.63 L (3.80-5.40) m/uL Hgb 8.1 L D (11.4-16.0) gm/dL Hct 24.8 L (34.0-46.0) % Potassium 3.2 L (3.5-5.1) mmol/L BUN 30 H (7-17) mg/dL Creatinine 1.40 H (0.52-1.04) mg/dL Glucose 140 H (74-99) mg/dL Calcium 8.1 L (8.4-10.2) mg/dL Assessment and Plan Plan: Assessment #1 status post left hip surgery #2 CAD #3 status post TAVR #4 multiple comorbid conditions Plan #1 the patient had hip surgery which was uneventful #2 we'll continue the current medical treatment #3 restart the patient on Plavix once is safe from the surgical standpoint overview #4 follow-up with the patient
[2016-11-16] MEDS: CLINDAMYCIN 600 MG in DEXTROSE 5% IN WATER 50 ML IVPB ONE ×2 (13:18)
[2016-11-16] MEDS: MULTIVITAMINS, THERA 1 EACH TAB PO SCH (13:19)
[2016-11-16] MEDS: ISOSORBIDE MONONITRATE ER 30 MG TAB.ER.24H PO SCH (13:23)
[2016-11-16] MEDS: PANTOPRAZOLE 40 MG TABLET PO SCH (13:23)
[2016-11-16] MEDS: CARVEDILOL 3.125 MG TAB PO SCH ×2 (13:23→17:50)
[2016-11-16] MEDS ORDERED: CLOPIDOGREL 75 MG TAB PO SCH (13:45)
--- NOTE | 2016-11-16 14:21 | P.PN ---
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 with a previous medical history significant for hypertension and hypertensive cardiovascular disease, hypothyroidism, osteoarthritis, anxiety, CAD post left heart catheter physician back in December 2015 that showed critical stenosis of the LAD and the LCx along with severe aortic valve stenosis, patient was admitted back and drover service in 01/03/2016 when she was admitted to the hospital with difficulty in breathing thought to be due to acute on top of chronic diastolic heart failure along with severe aortic valve stenosis at that time she was [place] [facility] [place] , patient apparently fell at home and landed on her left hip and she ended up coming to the ER at [facility] where she was found to have an acute displaced IT fracture of the left femur, she was admitted under orthopedic surgery we were asked to see the patient for clearance and she will be seen in consultation by cardiology for medical and cardiology clearance. We will obtain echocardiogram at this point in time to evaluate her LV function. 11/16: Echocardiogram reveals mild mitral regurgitation, mild tricuspid regurgitation, mild concentric left ventricular hypertrophy, EF 55-60%, aortic valve trileaflet and mildly thickened, trace to mild aortic regurgitation. She was cleared by cardiology for surgery. Patient underwent left IT nail and screw yesterday. Home medications will be resumed. IV Lasix to oral. Patient will need Plavix resumed. She denies any chest pain or shortness of breath. Objective - Vital Signs Vital signs: Vital Signs Temp 98.2 F 11/16/16 03:38 Pulse 77 11/16/16 03:38 Resp 16 11/16/16 03:39 BP 135/64 11/16/16 03:38 Pulse Ox 99 11/15/16 23:03 Intake & Output 11/15/16 11/16/16 11/16/16 18:59 06:59 18:59 Intake Total 454 150 Output Total 1800 750 Balance -1346 -600 Weight 73.5 kg Intake: IV 454 Oral 150 Output: Urine 1700 750 Estimated Blood Loss 100 Other: Voiding Method Indwelling Catheter Indwelling Catheter - Exam General appearance: average body habitus, no acute distress - EENT Eyes: anicteric sclerae, PERRLA, no ptosis, no scleral icterus, normal appearance ENT: hearing grossly normal, normal oropharynx, no thrush Ears: bilateral: normal - Neck Neck: no lymphadenopathy, normal ROM, no rigidity, no stridor, no thyromegaly Carotids: bilateral: upstroke normal Thyroid: bilateral: normal size - Respiratory Respiratory: bilateral: diminished, negative: dullness, rales, rhonchi, wheezing , prolonged expiration, prolonged inspiration - Cardiovascular Rhythm: regular Heart sounds: normal: S1, S2 Abnormal Heart Sounds: systolic murmur, no rub, no click - Gastrointestinal General gastrointestinal: normal bowel sounds, soft, no splenomegaly, no tenderness, umbilical hernia - Integumentary Integumentary: normal, normal turgor - Neurologic Neurologic: CNII-XII intact - Musculoskeletal Musculoskeletal: generalized weakness - Psychiatric Psychiatric: A&O x's 3, appropriate affect, intact judgment & insight - Labs CBC & Chem 7: 11/16/16 06:18 11/16/16 06:15 Labs: Abnormal Lab Results - Last 24 Hours (Table) 11/15/16 11/16/16 11/16/16 Range/Units 13:42 06:15 06:18 RBC 2.63 L (3.80-5.40) m/uL Hgb 8.1 L D (11.4-16.0) gm/dL Hct 24.8 L (34.0-46.0) % Potassium 3.2 L (3.5-5.1) mmol/L BUN 30 H (7-17) mg/dL Creatinine 1.40 H (0.52-1.04) mg/dL Glucose 140 H (74-99) mg/dL Calcium 8.1 L (8.4-10.2) mg/dL Assessment and Plan Plan: 1. Status post fall with left IT fracture. Patient is scheduled to go for intramedullary nailing of the left hip, patient has a significant cardiac history and she [place] [facility] [place], and I believe she underwent staging angioplasty of LAD and LCx, echocardiogram as above cardiology consultation, patient did receive at a dose of Lasix 40 mg IV push earlier today because of significant shortness of breath thought to be due to acute diastolic heart failure. 2. CAD post angioplasty of LAD and LCx. Hold aspirin and Plavix for now, continue Imdur 30 mg orally once every day, continue Coreg 3.125 mg orally twice every day, continue Lipitor 40 mg orally once every day. 3. History of severe aortic valve stenosis status post TAVR, echo above. 4. Chronic diastolic heart failure. Patient did receive a dose of Lasix, hip ever IV, start the patient on Coreg 3.125 mg orally twice every day. 5. Chronic kidney disease stage III. Stable at this time. 6. Paroxysmal atrial fibrillation. Currently in sinus rhythm. Stable. 7. Hypothyroidism. Continue Synthroid 100 g orally once every day. 8. History of gout.. Stable at this time. 9. Osteoarthritis. Stable. 10. Anxiety disorder, generalized. Stable at this time. 11. DVT prophylaxis. Patient will go on Lovenox 30 mg subcutaneously once every day. 12. GI prophylaxis. Continue omeprazole 20 mg orally once every day. Discharge plan: She most likely will require subacute rehab. Impression and plan of care have been directed as dictated by the signing physician. Barbie Dao nurse practitioner acting as scribe for signing physician. Time with Patient: Greater than 30
[2016-11-16] MEDS: FUROSEMIDE 40 MG TAB PO SCH (17:51)
[2016-11-16] MEDS ORDERED: [UNRECOGNIZED DRUG - OTHER] PO SCH (21:00)
[2016-11-16] MEDS: FOLIC ACID 1 MG TAB PO SCH (21:35)
[2016-11-16] MEDS: SENNOSIDES-DOCUSATE SODIUM 1 EACH TAB PO SCH (21:35)
[2016-11-16] MEDS: ZOLPIDEM 10 MG TAB PO SCH (21:35)
[2016-11-16] MEDS: FERROUS SULFATE 325 MG TAB PO SCH (21:35)
[2016-11-16] MEDS: ATORVASTATIN 40 MG TAB PO SCH (21:35)
[2016-11-17] MEDS: PANTOPRAZOLE 40 MG TABLET PO SCH (06:32)
[2016-11-17] MEDS: CARVEDILOL 3.125 MG TAB PO SCH ×2 (06:32→17:32)
[2016-11-17] MEDS: LEVOTHYROXINE 100 MCG TAB PO SCH (06:32)
[2016-11-17] MEDS: LACTATED RINGERS 1,000 ML IV SCH ×2 (06:34→20:30)
[2016-11-17 06:42] LABS: CH 31.7; CHCM 34.5; HCT 20.8 % (34.0-46.0); HDW 3.06; MCH 31.3 pg (25.0-35.0); MCHC 33.7 g/dL (31.0-37.0); MCV 92.6 fL (80.0-100.0); Mean Platelet Volume 7.7; RBC 2.25 m/uL (3.80-5.40); RDW 13.9 % (11.5-15.5); WBC 8.5 k/uL (3.8-10.6)
[2016-11-17 06:50] LABS: Calcium 8.2 mg/dL (8.4-10.2); Potassium 3.1 mmol/L (3.5-5.1)
[2016-11-17] MEDS: POTASSIUM CHLORIDE ER 20 MEQ TAB.ER PO SCH ×4 (08:55→17:31)
[2016-11-17] MEDS: ENOXAPARIN 30 MG/0.3 ML SYRINGE SQ SCH (08:55)
[2016-11-17] MEDS: FOLIC ACID 1 MG TAB PO SCH ×2 (08:56→20:28)
[2016-11-17] MEDS: FUROSEMIDE 40 MG TAB PO SCH ×2 (08:56→17:31)
[2016-11-17] MEDS: MULTIVITAMINS, THERA 1 EACH TAB PO SCH (08:56)
[2016-11-17] MEDS: FERROUS SULFATE 325 MG TAB PO SCH ×2 (08:56→20:28)
[2016-11-17] MEDS: ISOSORBIDE MONONITRATE ER 30 MG TAB.ER.24H PO SCH (08:57)
[2016-11-17] MEDS: ASPIRIN 81 MG CHEW PO SCH (08:57)
[2016-11-17] MEDS ORDERED: SODIUM FERRIC GLUCONAT-SUCROSE 125 MG in SODIUM CHLORIDE 0.9% 100 ML IVPB SCH (09:00)
--- NOTE | 2016-11-17 09:40 | P.PN ---
Subjective Principal diagnosis: Left IT fracture Patient is pleasant 86 yo female seen at bedside today. She is post op day #2 from left IT nail and screw. She has pain at operative site as expected. She denies any new complaints. She denies numbness, tingling, or calf pain. ROS is negative for fever, chills, chest pain, or SOB. Objective - Vital Signs Vital signs: Vital Signs Temp 97.8 F 11/17/16 04:00 Pulse 82 11/17/16 04:00 Resp 16 11/17/16 04:00 BP 155/66 11/17/16 04:00 Pulse Ox 92 L 11/17/16 04:00 Intake & Output 11/16/16 11/17/16 11/17/16 18:59 06:59 18:59 Intake Total 680 Output Total 600 1600 Balance 80 -1600 Weight 73.5 kg 75 kg Intake: Oral 680 Output: Urine 600 1600 Other: Voiding Method Indwelling Catheter Indwelling Catheter - Exam Inspection of left hip and leg is benign. There is no active bleeding or drainage from surgical site. Neurovascular status is intact. Sensation to light touch is intact throughout lower extremity. She can dorsiflex and plantar flex foot and toes. 2+ dorsalis pedis pulses and less than 2 sec cap refill intact. Calf is soft and nontender. - Constitutional General appearance: Present: no acute distress - Psychiatric Psychiatric: Present: A&O x's 3, appropriate affect, intact judgment & insight - Labs CBC & Chem 7: 11/17/16 06:12 11/17/16 06:12 Labs: Abnormal Lab Results - Last 24 Hours (Table) 11/17/16 11/17/16 Range/Units 06:12 06:12 RBC 2.25 L (3.80-5.40) m/uL Hgb 7.0 L* (11.4-16.0) gm/dL Hct 20.8 L (34.0-46.0) % Potassium 3.1 L (3.5-5.1) mmol/L BUN 31 H (7-17) mg/dL Creatinine 1.54 H (0.52-1.04) mg/dL Glucose 140 H (74-99) mg/dL Calcium 8.2 L (8.4-10.2) mg/dL Assessment and Plan (1) Fracture, intertrochanteric, left femur Narrative/Plan: She will continue with routine post op orthopedic protocol including pain management, physical therapy, wound care and DVT prophylaxis. Cardiology and IM is following as well for post op medical management. Her HgB has dropped to 7.0 today. Her intra operative bleeding was minimal and hasn't had any post op bleeding. She is Jehovahs witness and should not receive blood products. Will continue to monitor and investigate. Expect transfer to ECF in the next 1-2 days. Status: Acute Time with Patient: Less than 30
--- NOTE | 2016-11-17 11:29 | P.PN ---
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 with a previous medical history significant for hypertension and hypertensive cardiovascular disease, hypothyroidism, osteoarthritis, anxiety, CAD post left heart catheter physician back in December 2015 that showed critical stenosis of the LAD and the LCx along with severe aortic valve stenosis, patient was admitted back and drover service in 01/03/2016 when she was admitted to the hospital with difficulty in breathing thought to be due to acute on top of chronic diastolic heart failure along with severe aortic valve stenosis at that time she was referred [place] [facility] [place] and [place] , patient apparently fell at home and landed on her left hip and she ended up coming to the ER at [facility] where she was found to have an acute displaced IT fracture of the left femur, she was admitted under orthopedic surgery we were asked to see the patient for clearance and she will be seen in consultation by cardiology for medical and cardiology clearance. We will obtain echocardiogram at this point in time to evaluate her LV function. 11/16: Echocardiogram reveals mild mitral regurgitation, mild tricuspid regurgitation, mild concentric left ventricular hypertrophy, EF 55-60%, aortic valve trileaflet and mildly thickened, trace to mild aortic regurgitation. She was cleared by cardiology for surgery. Patient underwent left IT nail and screw yesterday. Home medications will be resumed. IV Lasix to oral. Patient will need Plavix resumed. She denies any chest pain or shortness of breath. 11/17: Patient was resumed back on Plavix and received 1 dose last night. She had a drop in her hemoglobin this morning is 7.0 and IV iron has been ordered. No blood transfusion as patient is a Jehovah witness. Potassium replaced. Patient is continued on Lovenox and aspirin. Anticipate possible discharge tomorrow to subacute rehab. Objective - Vital Signs Vital signs: Vital Signs Temp 97.8 F 11/17/16 04:00 Pulse 82 11/17/16 04:00 Resp 16 11/17/16 04:00 BP 155/66 11/17/16 04:00 Pulse Ox 92 L 11/17/16 04:00 Intake & Output 11/16/16 11/17/16 11/17/16 18:59 06:59 18:59 Intake Total 680 Output Total 600 1600 Balance 80 -1600 Weight 73.5 kg 75 kg Intake: Oral 680 Output: Urine 600 1600 Other: Voiding Method Indwelling Catheter Indwelling Catheter - Exam General appearance: average body habitus, no acute distress - EENT Eyes: anicteric sclerae, PERRLA, no ptosis, no scleral icterus, normal appearance ENT: hearing grossly normal, normal oropharynx, no thrush Ears: bilateral: normal - Neck Neck: no lymphadenopathy, normal ROM, no rigidity, no stridor, no thyromegaly Carotids: bilateral: upstroke normal Thyroid: bilateral: normal size - Respiratory Respiratory: bilateral: diminished, negative: dullness, rales, rhonchi, wheezing , prolonged expiration, prolonged inspiration - Cardiovascular Rhythm: regular Heart sounds: normal: S1, S2 Abnormal Heart Sounds: systolic murmur, no rub, no click - Gastrointestinal General gastrointestinal: normal bowel sounds, soft, no splenomegaly, no tenderness, umbilical hernia - Integumentary Integumentary: normal, normal turgor - Neurologic Neurologic: CNII-XII intact - Musculoskeletal Musculoskeletal: generalized weakness - Psychiatric Psychiatric: A&O x's 3, appropriate affect, intact judgment & insight - Labs CBC & Chem 7: 11/17/16 06:12 11/17/16 06:12 Labs: Abnormal Lab Results - Last 24 Hours (Table) 11/17/16 11/17/16 Range/Units 06:12 06:12 RBC 2.25 L (3.80-5.40) m/uL Hgb 7.0 L* (11.4-16.0) gm/dL Hct 20.8 L (34.0-46.0) % Potassium 3.1 L (3.5-5.1) mmol/L BUN 31 H (7-17) mg/dL Creatinine 1.54 H (0.52-1.04) mg/dL Glucose 140 H (74-99) mg/dL Calcium 8.2 L (8.4-10.2) mg/dL Assessment and Plan Plan: 1. Status post fall with left IT fracture. Patient is scheduled to go for intramedullary nailing of the left hip, patient has a significant cardiac history and she underwent a [place] at [place] [facility] [place], and I believe she underwent staging angioplasty of LAD and LCx, echocardiogram as above cardiology consultation, patient did receive at a dose of Lasix 40 mg IV push earlier today because of significant shortness of breath thought to be due to acute diastolic heart failure. 2. CAD post angioplasty of LAD and LCx. Hold aspirin and Plavix for now, continue Imdur 30 mg orally once every day, continue Coreg 3.125 mg orally twice every day, continue Lipitor 40 mg orally once every day. 3. History of severe aortic valve stenosis status post TAVR, echo above. 4. Chronic diastolic heart failure. Patient did receive a dose of Lasix, hip ever IV, start the patient on Coreg 3.125 mg orally twice every day. 5. Chronic kidney disease stage III. Stable at this time. 6. Paroxysmal atrial fibrillation. Currently in sinus rhythm. Stable. 7. Hypothyroidism. Continue Synthroid 100 g orally once every day. 8. History of gout.. Stable at this time. 9. Osteoarthritis. Stable. 10. Anxiety disorder, generalized. Stable at this time. 11. DVT prophylaxis. Patient will go on Lovenox 30 mg subcutaneously once every day. 12. GI prophylaxis. Continue omeprazole 20 mg orally once every day. Discharge plan: [facility] or [facility]. Impression and plan of care have been directed as dictated by the signing physician. Barbie Dao nurse practitioner acting as scribe for signing physician. Time with Patient: Greater than 30
[2016-11-17] MEDS: HYDROcodone/APAP 5-325MG 1 EACH TAB PO PRN (11:37)
--- NOTE | 2016-11-17 12:39 | CDI ---
In responding to this query, please exercise your independent professional judgment. The [facility] Coding Staff and Clinical Documentation Specialists appreciate your assistance in clarifying documentation, maintaining compliance with coding guidelines, accurately documenting patients condition and capturing severity of illness. The fact that a question is asked does not imply that any particular answer is desired or expected. Communication forms are a method of clarifying documentation and are not made part of the Legal Health Record. Thank you in advance for your clarification. Last Revision, September 2015 [address] [facility] [place] [address] Documentation Clarification Form Date: 11/17/2016 12:32:00 PM From: Nahomi Mcrae Admit Date: 11/15/2016 6:18:00 AM Patient Name: Francisco Javier Ash Visit Number: [id number] Dr. Yusuf Hidalgo Patient history/risk factors: Hip fracture with fixation on 11/16/16 Jehovah Witness Clinical Indicators: Hemoglobin: on 11/17 - 7.0 Hematocrit: on 11/17 - 20.8 Treatment: IV Iron ordered per note on 11/17 In order to capture the severity of condition, please clarify if this signifies a diagnosis listed below: Acute blood loss anemia Iron deficiency anemia Unable to determine Other, please specify Please document in your progress notes and discharge summary in order to capture severity of illness and risk of mortality. Include clinical findings that support your diagnosis. FYI: Press F11 to launch patient chart. Place X here if this finding has no clinical significance, is not applicable or if you are not able to provide any additional documentation. MACI
--- NOTE | 2016-11-17 12:57 | P.PN ---
Subjective Principal diagnosis: Left hip fracture This is a pleasant 86-year-old female patient with a past medical history significant for CAD, aortic valve disease and status post TAVR, hypertension, and dyslipidemia, fell at home and fractured her left hip. Patient underwent left hip surgery which was essentially uneventful. Hemodynamically stable, blood pressure 156/66, heart rate 68, respirations 18. Echocardiogram with Doppler study was performed which revealed an ejection fraction of 55-60%. Patient has been resumed on Plavix, received a dose last evening. She had a drop in her hemoglobin this morning, to 7.0, IV iron has been ordered. Patient continues to be on Lovenox and aspirin. Patient will not have a blood transfusion because she is a Jehovah witness. Potassium today is 3.1, replaced. Creatinine 1.5. Today the patient's Plavix and aspirin patient is currently on Lovenox. A repeat CBC will be requested tomorrow. Arrangements are being made for patient to transfer to possible rehab tomorrow if stable. Objective - Vital Signs Vital signs: Vital Signs Temp 97.6 F 11/17/16 08:00 Pulse 78 11/17/16 12:00 Resp 18 11/17/16 12:00 BP 159/69 11/17/16 12:00 Pulse Ox 95 11/17/16 12:00 Intake & Output 11/16/16 11/17/16 11/17/16 18:59 06:59 18:59 Intake Total 680 260 Output Total 600 1600 Balance 80 -1600 260 Weight 73.5 kg 75 kg Intake: Oral 680 260 Output: Urine 600 1600 Other: Voiding Method Indwelling Catheter Indwelling Catheter Indwelling Catheter - Exam PHYSICAL EXAMINATION: HEENT: Head is atraumatic, normocephalic. Pupils equal, round. Neck is supple. There is no elevated jugular venous pressure. HEART EXAMINATION: Heart S1, S2 normal. No murmur or gallop heard. CHEST EXAMINATION: Lungs are clear to auscultation and precussion. No chest wall tenderness is noted on palpation or with deep breathing. ABDOMEN: Soft, nontender. Bowel sounds are heard. No organomegaly noted. EXTREMITIES: 2+ peripheral pulses with no evidence of peripheral edema and no calf tenderness noted. NEUROLOGIC patient is awake, alert and oriented -3. . - Labs CBC & Chem 7: 11/17/16 06:12 11/17/16 06:12 Labs: Abnormal Lab Results - Last 24 Hours (Table) 11/17/16 11/17/16 Range/Units 06:12 06:12 RBC 2.25 L (3.80-5.40) m/uL Hgb 7.0 L* (11.4-16.0) gm/dL Hct 20.8 L (34.0-46.0) % Potassium 3.1 L (3.5-5.1) mmol/L BUN 31 H (7-17) mg/dL Creatinine 1.54 H (0.52-1.04) mg/dL Glucose 140 H (74-99) mg/dL Calcium 8.2 L (8.4-10.2) mg/dL Assessment and Plan (1) CAD (coronary artery disease) Status: Acute (2) S/P TAVR (transcatheter aortic valve replacement) Status: Acute (3) HTN (hypertension) Status: Acute (4) Hyperlipemia Status: Acute (5) Fracture, intertrochanteric, left femur Status: Acute Plan: From cardiology's perspective, I agree to continue with current medications. We 'll continue to monitor patient's blood pressure and if necessary adjustments antihypertensives. DNP note has been reviewed, I agree with a documented findings and plan of care. Patient was seen and examined.
[2016-11-17] MEDS: ATORVASTATIN 40 MG TAB PO SCH (20:27)
[2016-11-17] MEDS: SENNOSIDES-DOCUSATE SODIUM 1 EACH TAB PO SCH (20:28)
[2016-11-17] MEDS: ZOLPIDEM 10 MG TAB PO SCH (20:28)
[2016-11-18] MEDS: LEVOTHYROXINE 100 MCG TAB PO SCH (05:34)
[2016-11-18 07:24] LABS: Basophils # (A) 0.1 k/uL (0-0.2); Basophils % (A) 1 %; CH 31.5; CHCM 34.1; Eosinophils # (A) 0.1 k/uL (0-0.7); Eosinophils % (A) 2 %; HCT 20.2 % (34.0-46.0); HDW 3.17; Luc % (Auto) 1; Lymphocytes # (A) 0.9 k/uL (1.0-4.8); Lymphocytes % (A) 12 %; MCH 30.5 pg (25.0-35.0); MCHC 32.8 g/dL (31.0-37.0); Mean Platelet Volume 8.1; Monocytes # (A) 0.6 k/uL (0-1.0); Monocytes % (A) 7 %; Neutrophils % (A) 77 %; RBC 2.17 m/uL (3.80-5.40); RDW 14.4 % (11.5-15.5); WBC 7.8 k/uL (3.8-10.6); WBC (Perox) 7.91
[2016-11-18 07:28] LABS: HGB 6.6 gm/dL (11.4-16.0)
[2016-11-18] MEDS: ENOXAPARIN 30 MG/0.3 ML SYRINGE SQ SCH (08:43)
[2016-11-18] MEDS: FUROSEMIDE 40 MG TAB PO SCH (08:44)
[2016-11-18] MEDS: ASPIRIN 81 MG CHEW PO SCH (08:44)
[2016-11-18] MEDS: ISOSORBIDE MONONITRATE ER 30 MG TAB.ER.24H PO SCH (08:44)
[2016-11-18] MEDS: FERROUS SULFATE 325 MG TAB PO SCH ×2 (08:44→20:02)
[2016-11-18] MEDS: CARVEDILOL 3.125 MG TAB PO SCH ×2 (08:44→17:24)
[2016-11-18] MEDS: PANTOPRAZOLE 40 MG TABLET PO SCH (08:44)
[2016-11-18] MEDS: FOLIC ACID 1 MG TAB PO SCH ×2 (08:45→20:02)
[2016-11-18] MEDS ORDERED: SODIUM FERRIC GLUCONAT-SUCROSE 125 MG in SODIUM CHLORIDE 0.9% 100 ML IVPB ONE (09:05)
--- NOTE | 2016-11-18 09:17 | P.PN ---
Subjective Principal diagnosis: Left IT fracture Patient is pleasant 86 yo female seen at bedside today. She is post op day #3 from left IT nail and screw. She has pain at operative site as expected. She denies any new complaints. She denies numbness, tingling, or calf pain. ROS is negative for fever, chills, chest pain, or SOB. Objective - Vital Signs Vital signs: Vital Signs Temp 98.0 F 11/18/16 02:01 Pulse 86 11/18/16 02:01 Resp 16 11/18/16 03:09 BP 122/82 11/18/16 02:01 Pulse Ox 94 L 11/18/16 02:01 Intake & Output 11/17/16 11/18/16 11/18/16 18:59 06:59 18:59 Intake Total 260 Output Total 400 Balance -140 Weight 75 kg Intake: Oral 260 Output: Urine 400 Other: Voiding Method Indwelling Catheter Bedpan Diaper # Voids 1 1 - Exam Inspection of left hip and leg is benign. There is no active bleeding or drainage from surgical site. The thigh is mildly firm. Neurovascular status is intact. Sensation to light touch is intact throughout lower extremity. She can dorsiflex and plantar flex foot and toes. 2+ dorsalis pedis pulses and less than 2 sec cap refill intact. Calf is soft and nontender. - Constitutional General appearance: Present: no acute distress - Psychiatric Psychiatric: Present: A&O x's 3, appropriate affect, intact judgment & insight - Labs CBC & Chem 7: 11/18/16 06:47 11/17/16 06:12 Labs: Abnormal Lab Results - Last 24 Hours (Table) 11/18/16 Range/Units 06:47 RBC 2.17 L (3.80-5.40) m/uL Hgb 6.6 L* (11.4-16.0) gm/dL Hct 20.2 L (34.0-46.0) % Lymphocytes # 0.9 L (1.0-4.8) k/uL Assessment and Plan (1) Fracture, intertrochanteric, left femur Narrative/Plan: She will continue with routine post op orthopedic protocol including pain management, physical therapy, wound care and DVT prophylaxis. Cardiology and IM is following as well for post op medical management. Her HgB has dropped again to 6.6 today. Her intra operative bleeding was minimal and hasn't had any post op bleeding from her wounds. I am ordering an U/S of the the left thigh to investigate bleeding from the fracture and surgical site. She is Jehovahs witness and should not receive blood products. She is currently hemodynamically stable. Status: Acute Time with Patient: Less than 30
[2016-11-18 09:28] LABS: Calcium 8.1 mg/dL (8.4-10.2); Potassium 3.6 mmol/L (3.5-5.1)
[2016-11-18] MEDS: HYDROcodone/APAP 5-325MG 1 EACH TAB PO PRN ×2 (10:32→16:03)
--- NOTE | 2016-11-18 10:50 | US ---
EXAMINATION TYPE: US extremity nonvascular ltd LT DATE OF EXAM: 11/18/2016 9:38 AM COMPARISON: NONE CLINICAL HISTORY: Check for bleeding left thigh, patient post op ORIF left hip fracture There is irregular shaped, non vascular, hypoechoic structure with anechoic area within measuring 3. 8 x 2.8 1.3cm grayscale, color Doppler imaging performed. Evaluation at the level of the incision, i nferior medial. IMPRESSION: Findings likely represent hematoma. CT scan could be performed for better evaluation of extent.
[2016-11-18] MEDS ORDERED: FUROSEMIDE 10 MG/ML 2 ML VIAL IV ONE (11:42)
[2016-11-18] MEDS ORDERED: DARBEPOETIN ALFA 40 MCG/0.4 ML SYRINGE SQ SCH (12:00)
[2016-11-18] MEDS: LACTATED RINGERS 1,000 ML IV SCH ×2 (12:31→20:02)
[2016-11-18] MEDS: MULTIVITAMINS, THERA 1 EACH TAB PO SCH (13:04)
--- NOTE | 2016-11-18 13:51 | PN ---
Mrs. Ash is a [employer]. She does not wish to have any blood transfusion. She underwent hip surgery. There is a hematoma and her hemoglobin has dropped. She is resting comfortably. Has some pain, but no chest pain. Hemoglobin is down to 6.6 and she is receiving iron intravenously. She is status post aortic valve replacement by percutaneous approach, has hypertension and hyperlipidemia as well. She is resting comfortably without any chest pain or shortness of breath. Laboratory data suggests that there is some increase in BUN and creatinine. Her blood pressure today is 128/70, pulse rate is 80 per minute, sinus. There is JVD of 1 cm, no carotid bruit. There is a short systolic murmur at the base. Lungs are clear. Abdomen is soft. The lower extremity examination was not performed. IMPRESSION: 1. Stable post hip surgery. 2. Anemia secondary to some blood loss. 3. Status post aortic valve replacement, stable. RECOMMENDATIONS: Given the fact her hemoglobin is low, I am recommending that we not start Plavix, leave her on aspirin 81 mg daily, agree with iron IV. No other intervention is necessary from a cardiac standpoint. I am recommending that we cut down her Lasix to just 20 mg every morning. Her ejection fraction is fairly well preserved. Will discontinue IV Lasix also and give her only 20 mg of Lasix p.o. She can be discharged on the current medications with the Lasix dose of 20 mg daily. She will probably go to a rehab facility as well.
[2016-11-18 15:36] LABS: CH 31.4; CHCM 33.5; HCT 20.7 % (34.0-46.0); MCH 31.8 pg (25.0-35.0); MCHC 33.6 g/dL (31.0-37.0); MCV 94.4 fL (80.0-100.0); Mean Platelet Volume 8.3; RBC 2.19 m/uL (3.80-5.40); RDW 14.4 % (11.5-15.5); WBC 9.7 k/uL (3.8-10.6)
--- NOTE | 2016-11-18 16:42 | P.PN ---
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 with a previous medical history significant for hypertension and hypertensive cardiovascular disease, hypothyroidism, osteoarthritis, anxiety, CAD post left heart catheter physician back in December 2015 that showed critical stenosis of the LAD and the LCx along with severe aortic valve stenosis, patient was admitted back and drover service in 01/03/2016 when she was admitted to the hospital with difficulty in breathing thought to be due to acute on top of chronic diastolic heart failure along with severe aortic valve stenosis at that time she was referred to [facility] for staging angioplasty and TAVR , patient apparently fell at home and landed on her left hip and she ended up coming to the ER at [facility] where she was found to have an acute displaced IT fracture of the left femur, she was admitted under orthopedic surgery we were asked to see the patient for clearance and she will be seen in consultation by cardiology for medical and cardiology clearance. We will obtain echocardiogram at this point in time to evaluate her LV function. 11/16: Echocardiogram reveals mild mitral regurgitation, mild tricuspid regurgitation, mild concentric left ventricular hypertrophy, EF 55-60%, aortic valve trileaflet and mildly thickened, trace to mild aortic regurgitation. She was cleared by cardiology for surgery. Patient underwent left IT nail and screw yesterday. Home medications will be resumed. IV Lasix to oral. Patient will need Plavix resumed. She denies any chest pain or shortness of breath. 11/17: Patient was resumed back on Plavix and received 1 dose last night. She had a drop in her hemoglobin this morning is 7.0 and IV iron has been ordered. No blood transfusion as patient is a Jehovah witness. Potassium replaced. Patient is continued on Lovenox and aspirin. Anticipate possible discharge tomorrow to subacute rehab. 11/18: Patient had another drop in her hemoglobin down to 6.6. A repeat iron infusion ordered and Aranesp ordered. Ultrasound of the thigh shows a large hematoma. Orthopedics has ordered a pressure dressing. Patient does not have much appetite. Ordered for 1 dose of IV Lasix. Cardiology has decrease oral Lasix to 20 mg daily. Repeat hemoglobin at 3 PM is 7.0. Objective - Vital Signs Vital signs: Vital Signs Temp 98.0 F 11/18/16 02:01 Pulse 86 11/18/16 02:01 Resp 16 11/18/16 03:09 BP 122/82 11/18/16 02:01 Pulse Ox 94 L 11/18/16 02:01 Intake & Output 11/17/16 11/18/16 11/18/16 18:59 06:59 18:59 Intake Total 260 100 Output Total 400 Balance -140 100 Weight 75 kg Intake: Intake, IV Titration 100 Amount Sodium Ferric Gluconat- 100 Sucrose 125 mg In Sodium Chloride 0.9% 100 ml @ 100 mls/hr IVPB ONCE ONE Rx#:[id number] Oral 260 Output: Urine 400 Other: Voiding Method Indwelling Catheter Bedpan Diaper # Voids 1 1 - Exam General appearance: average body habitus, no acute distress - EENT Eyes: anicteric sclerae, PERRLA, no ptosis, no scleral icterus, normal appearance ENT: hearing grossly normal, normal oropharynx, no thrush Ears: bilateral: normal - Neck Neck: no lymphadenopathy, normal ROM, no rigidity, no stridor, no thyromegaly Carotids: bilateral: upstroke normal Thyroid: bilateral: normal size - Respiratory Respiratory: bilateral: diminished, negative: dullness, rales, rhonchi, wheezing , prolonged expiration, prolonged inspiration - Cardiovascular Rhythm: regular Heart sounds: normal: S1, S2 Abnormal Heart Sounds: systolic murmur, no rub, no click - Gastrointestinal General gastrointestinal: normal bowel sounds, soft, no splenomegaly, no tenderness, umbilical hernia - Integumentary Integumentary: normal, normal turgor - Neurologic Neurologic: CNII-XII intact - Musculoskeletal Musculoskeletal: generalized weakness - Psychiatric Psychiatric: A&O x's 3, appropriate affect, intact judgment & insight - Labs CBC & Chem 7: 11/18/16 15:00 11/18/16 06:47 Labs: Abnormal Lab Results - Last 24 Hours (Table) 11/18/16 11/18/16 Range/Units 06:47 06:47 RBC 2.17 L (3.80-5.40) m/uL Hgb 6.6 L* (11.4-16.0) gm/dL Hct 20.2 L (34.0-46.0) % Lymphocytes # 0.9 L (1.0-4.8) k/uL BUN 33 H (7-17) mg/dL Creatinine 1.54 H (0.52-1.04) mg/dL Glucose 125 H (74-99) mg/dL Calcium 8.1 L (8.4-10.2) mg/dL Assessment and Plan Plan: 1. Status post fall with left IT fracture. Patient is scheduled to go for intramedullary nailing of the left hip, patient has a significant cardiac history and she underwent a TAVR at to [facility] back in January 2016, and I believe she underwent staging angioplasty of LAD and LCx, echocardiogram as above cardiology consultation, patient did receive at a dose of Lasix 40 mg IV push earlier today because of significant shortness of breath thought to be due to acute diastolic heart failure. 2. CAD post angioplasty of LAD and LCx. Hold aspirin and Plavix for now, continue Imdur 30 mg orally once every day, continue Coreg 3.125 mg orally twice every day, continue Lipitor 40 mg orally once every day. 3. History of severe aortic valve stenosis status post TAVR, echo above. 4. Chronic diastolic heart failure. Patient did receive a dose of Lasix, hip ever IV, start the patient on Coreg 3.125 mg orally twice every day. 5. Chronic kidney disease stage III. Stable at this time. 6. Paroxysmal atrial fibrillation. Currently in sinus rhythm. Stable. 7. Hypothyroidism. Continue Synthroid 100 g orally once every day. 8. History of gout.. Stable at this time. 9. Osteoarthritis. Stable. 10. Anxiety disorder, generalized. Stable at this time. 11. Acute blood loss anemia with large hematoma at surgical site. Pressure dressing to be applied. Repeat dose of IV iron infusion today and Aranesp ordered and repeat hemoglobin at 3 pm. 12. DVT prophylaxis. Patient will go on Lovenox 30 mg subcutaneously once every day. 13. GI prophylaxis. Continue omeprazole 20 mg orally once every day. Discharge plan: [facility] or [facility]. Impression and plan of care have been directed as dictated by the signing physician. Barbie Dao nurse practitioner acting as scribe for signing physician. Time with Patient: Greater than 30
[2016-11-18] MEDS: ZOLPIDEM 10 MG TAB PO SCH (20:01)
[2016-11-18] MEDS: SENNOSIDES-DOCUSATE SODIUM 1 EACH TAB PO SCH (20:01)
[2016-11-18] MEDS: ATORVASTATIN 40 MG TAB PO SCH (20:02)
[2016-11-19] MEDS ORDERED: FUROSEMIDE 10 MG/ML 2 ML VIAL IV ONE (00:45)
[2016-11-19] MEDS: HYDROcodone/APAP 5-325MG 1 EACH TAB PO PRN ×2 (00:54→11:39)
[2016-11-19] MEDS: LEVOTHYROXINE 100 MCG TAB PO SCH (05:19)
[2016-11-19 07:19] LABS: CH 31.5; CHCM 33.6; HCT 21.5 % (34.0-46.0); HDW 3.19; HGB 7.2 gm/dL (11.4-16.0); MCH 31.6 pg (25.0-35.0); MCHC 33.6 g/dL (31.0-37.0); MCV 94.2 fL (80.0-100.0); Mean Platelet Volume 7.4; RBC 2.28 m/uL (3.80-5.40); RDW 14.8 % (11.5-15.5); WBC 9.8 k/uL (3.8-10.6)
[2016-11-19 07:43] LABS: Calcium 8.4 mg/dL (8.4-10.2); Potassium 3.2 mmol/L (3.5-5.1)
[2016-11-19] MEDS: CARVEDILOL 3.125 MG TAB PO SCH ×2 (08:28→18:30)
[2016-11-19] MEDS: FERROUS SULFATE 325 MG TAB PO SCH ×2 (08:29→23:49)
[2016-11-19] MEDS: PANTOPRAZOLE 40 MG TABLET PO SCH (08:29)
[2016-11-19] MEDS: ASPIRIN 81 MG CHEW PO SCH (08:29)
[2016-11-19] MEDS: FUROSEMIDE 20 MG TAB PO SCH (08:29)
[2016-11-19] MEDS: ENOXAPARIN 30 MG/0.3 ML SYRINGE SQ SCH (08:29)
[2016-11-19] MEDS: ISOSORBIDE MONONITRATE ER 30 MG TAB.ER.24H PO SCH (08:29)
[2016-11-19] MEDS: FOLIC ACID 1 MG TAB PO SCH ×2 (08:29→23:50)
--- NOTE | 2016-11-19 09:31 | P.DS ---
Providers Date of admission: 11/15/16 06:18 Expected date of discharge: 11/19/16 Attending physician: Justino Haro Consults: 11/15/16 10:54 Consult Physician Routine Consulting Provider: Himanshu Ashton Consult Reason/Comments: preop clearance Do you want consulting provider notified?: Yes Primary care physician: Wilfredo Villagran - Discharge Diagnosis(es) (1) Fracture, intertrochanteric, left femur Patient was admitted through the ER on 11/15/2016 after suffering a fall at home where x-rays showed a left intertrochanteric femur fracture. She was taken to the OR that same day where she underwent IT nail intramedullary medullary hip screw for fixation of her left intertrochanteric femur fracture. She tolerated the procedure well without complication. Her postoperative hospital course has remained most without complication. Her hemoglobin level did drop to 6.6 but has been increasing where today she is 7.2. She has not had any active bleeding and remains stable. She has remained hemodynamically stable and asymptomatic. 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 On day of discharge she is afebrile, vital signs stable, labs within acceptable ranges, wound benign, neurovascularly intact, calf soft and nontender, and abdomen soft nontender. On day of discharge she is denying any new complaints. She denies numbness, tingling, abdominal pain or calf pain. On day of discharge she is voiding without difficulty and has positive positive flatus. She is tolerating by mouth meds and diet, and pain is controlled. Review of systems is negative for fever, chills, chest pain, shortness breath, nausea, vomiting, dizziness, headaches, rashes, bleeding, headaches, slurred speech or other. Current Visit: Yes Status: Acute Priority: Medium Procedures: IT nail left hip for left intertrochanteric femur fracture Patient Condition at Discharge: Stable Plan - Discharge Summary New Discharge Prescriptions: Docusate [Colace] 100 mg PO BID #60 capsule Enoxaparin Sodium [Lovenox] 30 mg SQ DAILY #28 syringe HYDROcodone/APAP 5-325MG [[place] 5-325] 1 tab PO Q4HR PRN #60 tab PRN Reason: Pain Discharge Medication List ALPRAZolam [Xanax] 0.25 tab PO DAILY PRN 01/02/16 [History] Isosorbide Mononitrate ER [Imdur] 30 mg PO DAILY 01/02/16 [History] Omeprazole [PriLOSEC] 40 mg PO DAILY 01/02/16 [History] Zolpidem [Ambien] 10 mg PO HS 01/02/16 [History] Ibuprofen [Motrin] 600 mg PO BID PRN 01/03/16 [History] Levothyroxine Sodium [Synthroid] 100 mcg PO DAILY 01/03/16 [History] Aspirin EC [Ecotrin Low Dose] 81 mg PO DAILY 11/15/16 [History] Atorvastatin [Lipitor] 40 mg PO DAILY 11/15/16 [History] Carvedilol [Coreg] 3.125 mg PO BID 11/15/16 [History] Clopidogrel [Plavix] 75 mg PO DAILY 11/15/16 [History] Ferrograd Folic 325/0.35mg Xr Tab 1 tab PO BID 11/15/16 [History] Furosemide [Lasix] 40 mg PO BID 11/15/16 [History] Multivitamins, Thera [Multivitamin] 1 tab PO DAILY 11/15/16 [History] Docusate [Colace] 100 mg PO BID #60 capsule 11/19/16 [Rx] Enoxaparin Sodium [Lovenox] 30 mg SQ DAILY #28 syringe 11/19/16 [Rx] HYDROcodone/APAP 5-325MG [[place] 5-325] 1 tab PO Q4HR PRN #60 tab 11/19/16 [Rx] Follow up Appointment(s)/Referral(s): Wilfredo Villagran MD [Primary Care Provider] - 1-2 days Justino Haro MD [Medical Doctor] - 10 Days Activity/Diet/Wound Care/Special Instructions: Keep wound clean and dry Touchdown weightbearing left lower extremity Take meds as directed Follow-up with Dr. Haro in office, [phone] Discharge Disposition: TRANSFER TO SNF/ECF
[2016-11-19] MEDS ORDERED: POTASSIUM CHLORIDE ER 20 MEQ TAB.ER PO STA (12:22)
--- NOTE | 2016-11-19 12:42 | P.OP ---
Date of Procedure: 11/15/16 Preoperative Diagnosis: Left intertrochanteric hip fracture Postoperative Diagnosis: Left intertrochanteric hip fracture Procedure(s) Performed: Operative fixation of left hip fracture with intramedullary hip screw Implants: Synthes short TFN nail Anesthesia: LATRICE Surgeon: Justino Haro Drying Rack Changer #1: Saji Polanco Estimated Blood Loss (ml): 100 IV fluids (ml): 300 Urine output (ml): 200 Pathology: none sent Condition: stable Disposition: PACU Indications for Procedure: The patient is an 86-year-old female with multiple medical problems including coronary artery disease and congestive heart failure who sustained a low-energy fall resulting in a left hip fracture. She was brought to the ER and admitted to orthopedics. I met with the patient preoperatively to discuss treatment. My recommendation was to treat her intertrochanteric hip fracture with an intramedullary hip screw to help facilitate early motion. I had a lengthy discussion with the patient and her friend prior to surgery. Risks discussed with the patient include but are not limited to risks from anesthesia, risk of superficial infection, risk of deep infection, risk of delayed wound healing, risk of intraoperative fracture, risk of fracture nonunion, risk of fracture malunion, risk of failure of hardware, risk of varus collapse with cut out of the helical blade and need for further surgery, risk of postoperative periprosthetic fracture, risk of damage to local blood vessels or nerves, risk of inability to ambulate, risk of chronic leg pain, risk of chronic pain, and risk of postoperative medical problems including acute coronary event, stroke, pneumonia, DVT, PE, acute blood loss anemia, and possibly loss of life or limb. The patient understands that she is at a much higher rate of having a complication due to her age, poor bone quality, and multiple medical problems. The patient is also a [employer] and does not take one product. We discussed that this meant preoperatively. She understands that she may have acute blood loss anemia and without blood this can exacerbate her underlying cardiac issues. The patient understands this and provided her verbal consent to go forward with surgery. Description of Procedure: The patient was identified in preoperative holding and the correct left leg was marked with my initials. I reviewed the consent form with the patient and her family friend and all of their questions were answered. The leg was then marked with my initials. She was brought back to the operating room. On the gurney a general anesthetic was administered. A general anesthetic was administered rather than a spinal anesthetic due to the patient being on Plavix. The patient was then carefully transferred from the [facility] onto the fracture table. All of her bony prominences were well-padded. The patient's contralateral right leg was placed in a leg rosado that was well-padded and secured with an Manuel wrap. The patient's left leg was then placed in the fracture boot attached to traction. A perineal post was carefully placed. The patient's right arm was draped across her body and her torso was moved toward the right side of the bed allowing unimpeded access to the left hip. A timeout was then performed identifying the correct patient, operative extremity, procedure. C-arm fluoroscopy was then brought in to assess reduction prior to draping. A reduction consisting of adduction, internal rotation of the leg, and longitudinal traction was performed. The fracture was nicely reduced. I used the preoperative AP pelvis to assess her contralateral right hip angle. Her right hip appeared to be in varus and I matched her left hip to the right. Once the reduction was adequate in both the AP and lateral planes the left leg was prepped and draped in the standard sterile fashion. I began by making a 3 cm incision proximal to the greater trochanter in line with the femur. Dissection was carried down carefully through subcutaneous tissue and fascia. A guidewire was then placed just medial to the tip of the greater trochanter. C-arm was brought in to assess position of the pin in both the AP and lateral plane. A guidepin was then gently tapped in place and driven down to the level of the lesser trochanter. A soft tissue protecting guide and opening reamer was used to create an opening in the proximal femur. A 130 mm x 10 mm short Synthes nail was then dispensed and hooked up to the targeting arm. I verified that the trochars went through the targeting arm and matched up with the slots in the male. The guidewire and opening reamer were then removed and the nail was gently inserted into the proximal femur. The trocar for the helical blade was then placed through the targeting arm down to the lateral skin incision was made through the skin and fascia down to the level of bone. The trocar was brought down to the cortex of the lateral femur and a guidepin was placed in the low center position of the femoral head on the AP view. The C-arm was then brought into the lateral plane and I adjusted until the guidewire was in the posterior center position of the femoral head. A cannulated depth gauge measured the wire to be 95 mm. A 95 mm depth was set on the drill and drilled over the guidewire. A 95 mm helical blade was then dispensed and gently tamped in over the guidewire. Once it was fully seated the proximal set screw was brought all the way down and then backed off half a turn. The compression nut was turned clockwise generating compression. The trocar for the helical blade was then removed. A trocar for the distal interlocking screw was then placed through the targeting arm down to the lateral skin and a corresponding incision was made through the skin and subcutaneous tissue. The trocar was brought down to the lateral femur and a drill bit was used to drill for a distal screw. A depth gauge was used to measure and a 38 mm distal interlocking screws dispensed and then gently placed. C-arm was then used to assess reduction and position of our hardware. The targeting arm was removed from the nail and final fluoroscopy shots were taken. The AP view showed hardware in satisfactory position. The hip center was in slight varus but it was similar to her contralateral right hip. [place]' s line was intact medially. On the lateral view the helical blade was in the posterior center position of the femoral head. At this point all wounds were copiously irrigated. The proximal incision was closed using 0 Vicryl over the fascia, 2-0 Vicryl in the deep subcu and heather for skin. The distal incisions were closed using 2-0 Vicryl subcu and heather for skin. After both incisions were closer verified with the c2 tactical analysis technician that all instrument sponge and sharp counts were correct. Sterile dressing consisting of Adaptic, 4 x 4, and Tegaderm was applied. The patient was then carefully taken out of the fracture table, transferred from the OR table to the [facility], extubated, and brought to PACU having tolerated the procedure well. Plan: The patient is to be toe-touch weightbearing on her left leg. She will need 24 hours of postoperative antibiotics. DVT prophylaxis with Lovenox 40 mg daily for 4 weeks. Appreciate internal medicine postoperative management. Dressing change postoperative day #2
[2016-11-19] MEDS: LACTATED RINGERS 1,000 ML IV SCH (14:10)
[2016-11-19] MEDS: MULTIVITAMINS, THERA 1 EACH TAB PO SCH (14:16)
--- NOTE | 2016-11-19 16:27 | P.PN ---
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 with a previous medical history significant for hypertension and hypertensive cardiovascular disease, hypothyroidism, osteoarthritis, anxiety, CAD post left heart catheter physician back in December 2015 that showed critical stenosis of the LAD and the LCx along with severe aortic valve stenosis, patient was admitted back and drover service in 01/03/2016 when she was admitted to the hospital with difficulty in breathing thought to be due to acute on top of chronic diastolic heart failure along with severe aortic valve stenosis at that time she was referred to [facility] for staging angioplasty and TAVR , patient apparently fell at home and landed on her left hip and she ended up coming to the ER at [facility] where she was found to have an acute displaced IT fracture of the left femur, she was admitted under orthopedic surgery we were asked to see the patient for clearance and she will be seen in consultation by cardiology for medical and cardiology clearance. We will obtain echocardiogram at this point in time to evaluate her LV function. 11/16: Echocardiogram reveals mild mitral regurgitation, mild tricuspid regurgitation, mild concentric left ventricular hypertrophy, EF 55-60%, aortic valve trileaflet and mildly thickened, trace to mild aortic regurgitation. She was cleared by cardiology for surgery. Patient underwent left IT nail and screw yesterday. Home medications will be resumed. IV Lasix to oral. Patient will need Plavix resumed. She denies any chest pain or shortness of breath. 11/17: Patient was resumed back on Plavix and received 1 dose last night. She had a drop in her hemoglobin this morning is 7.0 and IV iron has been ordered. No blood transfusion as patient is a Jehovah witness. Potassium replaced. Patient is continued on Lovenox and aspirin. Anticipate possible discharge tomorrow to subacute rehab. 11/18: Patient had another drop in her hemoglobin down to 6.6. A repeat iron infusion ordered and Aranesp ordered. Ultrasound of the thigh shows a large hematoma. Orthopedics has ordered a pressure dressing. Patient does not have much appetite. Ordered for 1 dose of IV Lasix. Cardiology has decrease oral Lasix to 20 mg daily. Repeat hemoglobin at 3 PM is 7.0. 11/19: Hemoglobin is improved to 7.2. Potassium 3.2 and BUN 35 and creatinine 2.07. Potassium will be replaced. Patient was being prepared for discharge to [facility] today but discharge held by medicine due to acute kidney injury, pain control and anemia. Objective - Vital Signs Vital signs: Vital Signs Temp 97.6 F 11/19/16 08:00 Pulse 50 L 11/19/16 08:00 Resp 14 11/19/16 08:00 BP 139/82 11/19/16 08:00 Pulse Ox 95 11/19/16 08:00 Intake & Output 11/18/16 11/19/16 11/19/16 18:59 06:59 18:59 Intake Total 100 590 Balance 100 590 Weight 73.5 kg Intake: Intake, IV Titration 100 Amount Sodium Ferric Gluconat- 100 Sucrose 125 mg In Sodium Chloride 0.9% 100 ml @ 100 mls/hr IVPB ONCE ONE Rx#:[id number] Oral 590 Other: Voiding Method Bedpan Bedpan Diaper Diaper # Voids 1 - Exam General appearance: average body habitus, no acute distress - EENT Eyes: anicteric sclerae, PERRLA, no ptosis, no scleral icterus, normal appearance ENT: hearing grossly normal, normal oropharynx, no thrush Ears: bilateral: normal - Neck Neck: no lymphadenopathy, normal ROM, no rigidity, no stridor, no thyromegaly Carotids: bilateral: upstroke normal Thyroid: bilateral: normal size - Respiratory Respiratory: bilateral: diminished, negative: dullness, rales, rhonchi, wheezing , prolonged expiration, prolonged inspiration - Cardiovascular Rhythm: regular Heart sounds: normal: S1, S2 Abnormal Heart Sounds: systolic murmur, no rub, no click - Gastrointestinal General gastrointestinal: normal bowel sounds, soft, no splenomegaly, no tenderness, umbilical hernia - Integumentary Integumentary: normal, normal turgor - Neurologic Neurologic: CNII-XII intact - Musculoskeletal Musculoskeletal: generalized weakness - Psychiatric Psychiatric: A&O x's 3, appropriate affect, intact judgment & insight - Labs CBC & Chem 7: 11/19/16 06:46 11/19/16 06:46 Labs: Abnormal Lab Results - Last 24 Hours (Table) 11/18/16 11/19/16 11/19/16 Range/Units 15:00 06:46 06:46 RBC 2.19 L 2.28 L (3.80-5.40) m/uL Hgb 7.0 L* 7.2 L (11.4-16.0) gm/dL Hct 20.7 L 21.5 L (34.0-46.0) % Potassium 3.2 L (3.5-5.1) mmol/L BUN 35 H (7-17) mg/dL Creatinine 2.07 H (0.52-1.04) mg/dL Glucose 131 H (74-99) mg/dL Assessment and Plan Plan: 1. Status post fall with left IT fracture. Patient is scheduled to go for intramedullary nailing of the left hip, patient has a significant cardiac history and she underwent a TAVR at to [facility] back in January 2016, and I believe she underwent staging angioplasty of LAD and LCx, echocardiogram as above cardiology consultation, patient did receive at a dose of Lasix 40 mg IV push earlier today because of significant shortness of breath thought to be due to acute diastolic heart failure. 2. CAD post angioplasty of LAD and LCx. Hold aspirin and Plavix for now, continue Imdur 30 mg orally once every day, continue Coreg 3.125 mg orally twice every day, continue Lipitor 40 mg orally once every day. 3. History of severe aortic valve stenosis status post TAVR, echo above. 4. Chronic diastolic heart failure. Patient did receive a dose of Lasix, hip ever IV, start the patient on Coreg 3.125 mg orally twice every day. 5. Chronic kidney disease stage III. Stable at this time. 6. Paroxysmal atrial fibrillation. Currently in sinus rhythm. Stable. 7. Hypothyroidism. Continue Synthroid 100 g orally once every day. 8. History of gout.. Stable at this time. 9. Osteoarthritis. Stable. 10. Anxiety disorder, generalized. Stable at this time. 11. Acute blood loss anemia with large hematoma at surgical site. Pressure dressing to be applied. Repeat dose of IV iron infusion today and Aranesp ordered and repeat hemoglobin at 3 pm. 12. Acute kidney injury. Avoid nephrotoxic agents. I 6 has been decreased to 20 mg daily. 13. DVT prophylaxis. Patient will go on Lovenox 30 mg subcutaneously once every day. 14. GI prophylaxis. Continue omeprazole 20 mg orally once every day. Discharge plan: [facility] or [facility]. Impression and plan of care have been directed as dictated by the signing physician. Barbie Dao nurse practitioner acting as scribe for signing physician. Time with Patient: Greater than 30
[2016-11-19] MEDS: ZOLPIDEM 10 MG TAB PO SCH (23:48)
[2016-11-19] MEDS: ATORVASTATIN 40 MG TAB PO SCH (23:48)
[2016-11-19] MEDS: SENNOSIDES-DOCUSATE SODIUM 1 EACH TAB PO SCH (23:48)
[2016-11-20] MEDS: HYDROcodone/APAP 5-325MG 1 EACH TAB PO PRN ×2 (05:41→11:12)
[2016-11-20] MEDS: LEVOTHYROXINE 100 MCG TAB PO SCH (05:41)
[2016-11-20 07:15] LABS: CH 31.4; CHCM 34.2; HDW 3.35; MCH 30.8 pg (25.0-35.0); MCHC 33.2 g/dL (31.0-37.0); MCV 92.8 fL (80.0-100.0); Mean Platelet Volume 8.3; RBC 2.15 m/uL (3.80-5.40); RDW 15.9 % (11.5-15.5); WBC 10.8 k/uL (3.8-10.6)
[2016-11-20 07:19] LABS: HCT 19.9 % (34.0-46.0); HGB 6.6 gm/dL (11.4-16.0)
[2016-11-20 07:31] LABS: Calcium 8.1 mg/dL (8.4-10.2); Potassium 3.3 mmol/L (3.5-5.1)
[2016-11-20] MEDS ORDERED: SODIUM FERRIC GLUCONAT-SUCROSE 125 MG in SODIUM CHLORIDE 0.9% 100 ML IVPB ONE (07:50)
[2016-11-20] MEDS: ENOXAPARIN 30 MG/0.3 ML SYRINGE SQ SCH (08:59)
[2016-11-20] MEDS: ASPIRIN 81 MG CHEW PO SCH (09:00)
[2016-11-20] MEDS: CARVEDILOL 3.125 MG TAB PO SCH ×2 (09:00→17:58)
[2016-11-20] MEDS: ISOSORBIDE MONONITRATE ER 30 MG TAB.ER.24H PO SCH (09:00)
[2016-11-20] MEDS: PANTOPRAZOLE 40 MG TABLET PO SCH (09:00)
[2016-11-20] MEDS: FERROUS SULFATE 325 MG TAB PO SCH ×2 (09:00→21:51)
[2016-11-20] MEDS: FOLIC ACID 1 MG TAB PO SCH ×2 (09:01→21:51)
[2016-11-20] MEDS: POTASSIUM CHLORIDE ER 20 MEQ TAB.ER PO SCH ×3 (11:15→15:02)
--- NOTE | 2016-11-20 11:21 | P.PN ---
Progress Note - Text Patient is a pleasant 86-year-old female who is seen and examined at bedside following evaluation following left intramedullary gamma nail fixation for left intertrochanteric hip fracture performed by Dr. Haro on 11/15/2016. Postsurgically she's been having improvement of her symptoms but does continue to have some left hip pain. She was cleared for discharge to rehabilitation facility yesterday, but has remained in the hospital for further evaluation of her hemoglobin. Her hemoglobin was 7.2 yesterday but has reduced to 6.6 today. Patient continues to be seen and examed by medicine. 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 She's currently being supplemented iron, B12, and folate. She has no new complaints this morning. Physical Exam Intramedullary Rodding for Intertrochanteric Fracture: Status post surgical day number 5 Patient is examined lying in bed Patient is awake and alert, and oriented 3 Vital signs stable Good chest excursion with deep inspiration and expiration; patient currently on O2 nasal cannula Abdomen soft nontender No signs or symptoms of DVT; no calf pain Lower extremity cuffs in place bilaterally Dressing of the left hip is clean, dry, and intact; no erythema, purulence, or signs of infection Esperanza at the left hip remain intact Full range of motion of ankles bilaterally Dorsiflexion, plantarflexion, and extensor hallucis longus positive sustained bilaterally Neurovascularly intact bilateral lower extremities Capillary refill less than 2 seconds bilateral lower extremities Assessment: Left intramedullary gamma nail fixation for left intertrochanteric hip fracture Anemia Plan: 1. Patient will continue with physical therapy to increase ambulation range of motion the left lower extremity were remaining toe-touch weightbearing only. Currently planning for placement to rehabilitation facility most likely this coming 11/22/2016, depending on her hemoglobin level. 2. Medicine to continue following the patient for her other medical diagnoses including anemia; patient currently receiving iron supplement, B12, and folate 3. We will continue to follow patient closely 4. Following discharge, patient will plan a follow-up with Dr. Haro at [facility] in approximately 10 days
[2016-11-20] MEDS: MULTIVITAMINS, THERA 1 EACH TAB PO SCH (13:46)
[2016-11-20] MEDS: FUROSEMIDE 20 MG TAB PO SCH (15:02)
--- NOTE | 2016-11-20 17:10 | P.PN ---
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 with a previous medical history significant for hypertension and hypertensive cardiovascular disease, hypothyroidism, osteoarthritis, anxiety, CAD post left heart catheter physician back in December 2015 that showed critical stenosis of the LAD and the LCx along with severe aortic valve stenosis, patient was admitted back and drover service in 01/03/2016 when she was admitted to the hospital with difficulty in breathing thought to be due to acute on top of chronic diastolic heart failure along with severe aortic valve stenosis at that time she was referred to [facility] for staging angioplasty and TAVR , patient apparently fell at home and landed on her left hip and she ended up coming to the ER at [facility] where she was found to have an acute displaced IT fracture of the left femur, she was admitted under orthopedic surgery we were asked to see the patient for clearance and she will be seen in consultation by cardiology for medical and cardiology clearance. We will obtain echocardiogram at this point in time to evaluate her LV function. 11/16: Echocardiogram reveals mild mitral regurgitation, mild tricuspid regurgitation, mild concentric left ventricular hypertrophy, EF 55-60%, aortic valve trileaflet and mildly thickened, trace to mild aortic regurgitation. She was cleared by cardiology for surgery. Patient underwent left IT nail and screw yesterday. Home medications will be resumed. IV Lasix to oral. Patient will need Plavix resumed. She denies any chest pain or shortness of breath. 11/17: Patient was resumed back on Plavix and received 1 dose last night. She had a drop in her hemoglobin this morning is 7.0 and IV iron has been ordered. No blood transfusion as patient is a Jehovah witness. Potassium replaced. Patient is continued on Lovenox and aspirin. Anticipate possible discharge tomorrow to subacute rehab. 11/18: Patient had another drop in her hemoglobin down to 6.6. A repeat iron infusion ordered and Aranesp ordered. Ultrasound of the thigh shows a large hematoma. Orthopedics has ordered a pressure dressing. Patient does not have much appetite. Ordered for 1 dose of IV Lasix. Cardiology has decrease oral Lasix to 20 mg daily. Repeat hemoglobin at 3 PM is 7.0. 11/19: Hemoglobin is improved to 7.2. Potassium 3.2 and BUN 35 and creatinine 2.07. Potassium will be replaced. Patient was being prepared for discharge to [facility] today but discharge held by medicine due to acute kidney injury, pain control and anemia. 11/20:. Anorexia still main complaint today. We are anticipating discharge to skilled ECF. Patient has a hemoglobin of 6.6 today has been refusing blood transfusion for several days. Oral fluid hydration. And she would be started, urine urinalysis with culture requested Ambien discontinued in favor of Remeron 15 at bedtime Objective - Vital Signs Vital signs: Vital Signs Temp 97.7 F 11/20/16 14:09 Pulse 74 11/20/16 14:09 Resp 16 11/20/16 14:09 BP 141/63 11/20/16 14:09 Pulse Ox 94 L 11/20/16 14:09 Intake & Output 11/19/16 11/20/16 11/20/16 18:59 06:59 18:59 Intake Total 1690 100 220 Balance 1690 100 220 Weight 75 kg Intake: Oral 1690 100 220 Other: Voiding Method Bedpan Bedpan Diaper Diaper # Voids 2 1 # Bowel Movements 1 - Constitutional General appearance: Present: cooperative, no acute distress - EENT Eyes: Present: anicteric sclerae, PERRLA, dentition normal ENT: Present: hearing grossly normal, NA/AT, normal oropharynx - Neck Neck: Present: normal ROM. Absent: lymphadenopathy, other, rigidity, stridor, thyromegaly - Respiratory Respiratory: bilateral: CTA, negative: dullness, rales, rhonchi, wheezing, prolonged expiration - Cardiovascular Rhythm: regular Heart sounds: normal: S1, S2 Abnormal Heart Sounds: Present: systolic murmur. Absent: diastolic murmur, rub , S3 Gallop, S4 Gallop, click, other - Gastrointestinal General gastrointestinal: Present: normal bowel sounds, soft, tenderness (None) - Integumentary Integumentary: Present: decreased turgor, normal - Neurologic Neurologic: Present: CNII-XII intact - Musculoskeletal Musculoskeletal: Present: generalized weakness, strength equal bilaterally - Psychiatric Psychiatric: Present: A&O x's 3, appropriate affect, intact judgment & insight - Labs CBC & Chem 7: 11/20/16 06:47 11/20/16 06:47 Labs: Abnormal Lab Results - Last 24 Hours (Table) 11/20/16 11/20/16 Range/Units 06:47 06:47 WBC 10.8 H (3.8-10.6) k/uL RBC 2.15 L (3.80-5.40) m/uL Hgb 6.6 L* (11.4-16.0) gm/dL Hct 19.9 L* (34.0-46.0) % RDW 15.9 H (11.5-15.5) % Sodium 135 L (137-145) mmol/L Potassium 3.3 L (3.5-5.1) mmol/L BUN 36 H (7-17) mg/dL Creatinine 1.52 H (0.52-1.04) mg/dL Glucose 144 H (74-99) mg/dL Calcium 8.1 L (8.4-10.2) mg/dL Assessment and Plan Plan: 1. Status post fall with left IT fracture. Patient is scheduled to go for intramedullary nailing of the left hip, patient has a significant cardiac history and she underwent a TAVR at to [facility] back in January 2016, and I believe she underwent staging angioplasty of LAD and LCx, echocardiogram as above cardiology consultation, patient did receive at a dose of Lasix 40 mg IV push earlier today because of significant shortness of breath thought to be due to acute diastolic heart failure. 2. CAD post angioplasty of LAD and LCx. Hold aspirin and Plavix for now, continue Imdur 30 mg orally once every day, continue Coreg 3.125 mg orally twice every day, continue Lipitor 40 mg orally once every day. 3. History of severe aortic valve stenosis status post TAVR, echo above. 4. Chronic diastolic heart failure. Patient did receive a dose of Lasix, hip ever IV, start the patient on Coreg 3.125 mg orally twice every day. 5. Chronic kidney disease stage III. Stable at this time. 6. Paroxysmal atrial fibrillation. Currently in sinus rhythm. Stable. 7. Hypothyroidism. Continue Synthroid 100 g orally once every day. 8. History of gout.. Stable at this time. 9. Osteoarthritis. Stable. 10. Anxiety disorder, generalized. Stable at this time. 11. Acute blood loss anemia with large hematoma at surgical site. Pressure dressing to be applied. Repeat dose of IV iron infusion today and Aranesp ordered and repeat hemoglobin at 3 pm. Patient has been refusing blood transfusion 12. Anorexia etiology unknown at this time. Lipase will be obtained. Urinalysis with cultures obtained. Patient was started on Remeron 15 to assist with anorexia. Ambien discontinued for chronic insomnia 12. Acute kidney injury. Avoid nephrotoxic agents. I 6 has been decreased to 20 mg daily. 13. DVT prophylaxis. Patient will go on Lovenox 30 mg subcutaneously once every day. 14. GI prophylaxis. Continue omeprazole 20 mg orally once every day. [facility]
[2016-11-20] MEDS: ATORVASTATIN 40 MG TAB PO SCH (21:51)
[2016-11-20] MEDS: SENNOSIDES-DOCUSATE SODIUM 1 EACH TAB PO SCH (21:51)
[2016-11-20] MEDS: MIRTAZAPINE 15 MG TAB PO SCH (21:51)
[2016-11-20] MEDS: TEMAZEPAM 15 MG CAP PO PRN (22:28)
[2016-11-21] MEDS: HYDROcodone/APAP 5-325MG 1 EACH TAB PO PRN ×3 (04:04→16:53)
[2016-11-21 04:29] LABS: Appearance,Urine Cloudy (Clear); Bacteria,Urine Moderate /hpf; Bilirubin,Urine Negative (Negative); Glucose,Urine (UA) Negative (Negative); Ketones,Urine Negative (Negative); Leukocyte Esterase,Urine Large (Negative); Mucus,Urine Rare /hpf; Nitrite,Urine Negative (Negative); PH, Urine 6.5 (5.0-8.0); Particle Count 202468; Protein,Urine Trace (Negative); RBC,Urine 36 /hpf (0-5); Specific Gravity,Urine 1.008 (1.001-1.035); Squamous Epithelial Cell,Urine 1 /hpf (0-4); UA Billing (MACRO vs. MICRO) MICRO; Urobilinogen,Urine <2.0 mg/dL (<2.0); WBC,Urine >182 /hpf (0-5)
[2016-11-21] MEDS: LEVOTHYROXINE 100 MCG TAB PO SCH (05:33)
[2016-11-21 07:26] LABS: Anisocytosis Slight; CH 31.7; CHCM 33.5; HCT 22.5 % (34.0-46.0); HGB 7.4 gm/dL (11.4-16.0); MCH 31.2 pg (25.0-35.0); MCHC 32.6 g/dL (31.0-37.0); MCV 95.6 fL (80.0-100.0); Macrocytosis Slight; Mean Platelet Volume 8.4; Poikilocytosis Slight; RBC 2.36 m/uL (3.80-5.40); RDW 16.7 % (11.5-15.5); WBC 10.8 k/uL (3.8-10.6)
[2016-11-21 07:43] LABS: Calcium 8.4 mg/dL (8.4-10.2); Potassium 3.8 mmol/L (3.5-5.1)
[2016-11-21] MEDS: FOLIC ACID 1 MG TAB PO SCH ×2 (08:02→20:21)
[2016-11-21] MEDS: FERROUS SULFATE 325 MG TAB PO SCH ×2 (08:02→20:21)
[2016-11-21] MEDS: ASPIRIN 81 MG CHEW PO SCH (08:03)
[2016-11-21] MEDS: ISOSORBIDE MONONITRATE ER 30 MG TAB.ER.24H PO SCH (08:03)
[2016-11-21] MEDS: FUROSEMIDE 20 MG TAB PO SCH (08:03)
[2016-11-21] MEDS: ENOXAPARIN 30 MG/0.3 ML SYRINGE SQ SCH (08:03)
[2016-11-21] MEDS: CARVEDILOL 3.125 MG TAB PO SCH ×2 (08:03→17:51)
[2016-11-21] MEDS: PANTOPRAZOLE 40 MG TABLET PO SCH (08:04)
[2016-11-21] MEDS: NYSTATIN 100,000 UNIT/ML SUSP 500,000 UNIT/5 ML CUP PO SCH ×4 (08:11→20:22)
[2016-11-21] MEDS ORDERED: LEVOFLOXACIN 500MG-D5W PMX 500 MG in DEXTROSE/WATER 1 100ML.BAG IVPB ONE (09:00)
--- NOTE | 2016-11-21 09:49 | P.PN ---
Progress Note - Text Patient is a pleasant 86-year-old female who is seen and examined at bedside following evaluation following left intramedullary gamma nail fixation for left intertrochanteric hip fracture performed by Dr. Haro on 11/15/2016. Postsurgically she's been having improvement of her symptoms but does continue to have some left hip pain. We continue to monitor her hemoglobin. Yesterday her hemoglobin was 6.6 but it has increased today to 7.4. She continues to be seen and examined by medicine as well and was diagnosed with urinary tract infection yesterday. Medicine has started her on Levaquin IV for treatment of her urinary tract infection. Patient states she's been urinating frequently but is not having any difficulty with urination. She denies any nausea, fever, vomiting, or chills. She states she has been able to eat but does not have much of an appetite. She is unable to receive blood products due to her gnosticist. She's currently being supplemented iron, B12, and folate. She has no new complaints this morning. Physical Exam Intramedullary Rodding for Intertrochanteric Fracture: Status post surgical day number 7 Patient is examined lying in bed Patient is awake and alert, and oriented 3 Vital signs stable Good chest excursion with deep inspiration and expiration; patient currently on O2 nasal cannula Abdomen soft nontender No signs or symptoms of DVT; no calf pain Lower extremity cuffs in place bilaterally Dressing of the left hip is clean, dry, and intact; no erythema, purulence, or signs of infection Esperanza at the left hip remain intact Full range of motion of ankles bilaterally Dorsiflexion, plantarflexion, and extensor hallucis longus positive sustained bilaterally Neurovascularly intact bilateral lower extremities Capillary refill less than 2 seconds bilateral lower extremities Assessment: Left intramedullary gamma nail fixation for left intertrochanteric hip fracture Anemia Urinary tract infection Plan: 1. Patient will continue with physical therapy to increase ambulation range of motion the left lower extremity were remaining toe-touch weightbearing only. Currently planning for placement to rehabilitation facility most likely this coming 11/22/2016, depending on her hemoglobin level. 2. Medicine to continue following the patient for her other medical diagnoses including anemia and urinary tract infection; patient currently receiving iron supplement, B12, and folate for anemia and Levaquin IV for urinary tract infection 3. We will continue to follow patient closely 4. Following discharge, patient will plan a follow-up with Dr. Haro at [facility] in approximately 10 days
[2016-11-21] MEDS: MULTIVITAMINS, THERA 1 EACH TAB PO SCH (10:56)
[2016-11-21] MEDS: ATORVASTATIN 40 MG TAB PO SCH (20:20)
[2016-11-21] MEDS: SENNOSIDES-DOCUSATE SODIUM 1 EACH TAB PO SCH (20:21)
[2016-11-21] MEDS: MIRTAZAPINE 15 MG TAB PO SCH (20:21)
--- NOTE | 2016-11-21 21:19 | P.PN ---
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 with a previous medical history significant for hypertension and hypertensive cardiovascular disease, hypothyroidism, osteoarthritis, anxiety, CAD post left heart catheter physician back in December 2015 that showed critical stenosis of the LAD and the LCx along with severe aortic valve stenosis, patient was admitted back and drover service in 01/03/2016 when she was admitted to the hospital with difficulty in breathing thought to be due to acute on top of chronic diastolic heart failure along with severe aortic valve stenosis at that time she was referred to [facility] for staging angioplasty and TAVR , patient apparently fell at home and landed on her left hip and she ended up coming to the ER at [facility] where she was found to have an acute displaced IT fracture of the left femur, she was admitted under orthopedic surgery we were asked to see the patient for clearance and she will be seen in consultation by cardiology for medical and cardiology clearance. We will obtain echocardiogram at this point in time to evaluate her LV function. 11/16: Echocardiogram reveals mild mitral regurgitation, mild tricuspid regurgitation, mild concentric left ventricular hypertrophy, EF 55-60%, aortic valve trileaflet and mildly thickened, trace to mild aortic regurgitation. She was cleared by cardiology for surgery. Patient underwent left IT nail and screw yesterday. Home medications will be resumed. IV Lasix to oral. Patient will need Plavix resumed. She denies any chest pain or shortness of breath. 11/17: Patient was resumed back on Plavix and received 1 dose last night. She had a drop in her hemoglobin this morning is 7.0 and IV iron has been ordered. No blood transfusion as patient is a Jehovah witness. Potassium replaced. Patient is continued on Lovenox and aspirin. Anticipate possible discharge tomorrow to subacute rehab. 11/18: Patient had another drop in her hemoglobin down to 6.6. A repeat iron infusion ordered and Aranesp ordered. Ultrasound of the thigh shows a large hematoma. Orthopedics has ordered a pressure dressing. Patient does not have much appetite. Ordered for 1 dose of IV Lasix. Cardiology has decrease oral Lasix to 20 mg daily. Repeat hemoglobin at 3 PM is 7.0. 11/19: Hemoglobin is improved to 7.2. Potassium 3.2 and BUN 35 and creatinine 2.07. Potassium will be replaced. Patient was being prepared for discharge to [facility] today but discharge held by medicine due to acute kidney injury, pain control and anemia. 11/20:. Anorexia still main complaint today. We are anticipating discharge to skilled ECF. Patient has a hemoglobin of 6.6 today has been refusing blood transfusion for several days. Oral fluid hydration. And she would be started, urine urinalysis with culture requested Ambien discontinued in favor of Remeron 15 at bedtime Objective - Vital Signs Vital signs: Vital Signs Temp 98.6 F 11/21/16 20:00 Pulse 83 11/21/16 20:00 Resp 18 11/21/16 20:00 BP 178/87 11/21/16 20:00 Pulse Ox 96 11/21/16 20:00 Intake & Output 11/21/16 11/21/16 11/22/16 06:59 18:59 06:59 Intake Total 440 1320 Output Total 1 Balance 439 1320 Weight 75.5 kg Intake: Intake, IV Titration 100 Amount Levofloxacin 500Mg-D5w 100 Pmx 500 mg In Dextrose/ Water 1 100ml.bag @ 100 mls/hr IVPB ONCE ONE Rx#: [id number] Oral 440 1220 Output: Urine 1 Other: Voiding Method Bedpan Bedpan Bedpan # Voids 1 1 # Bowel Movements 1 - Constitutional General appearance: Present: cooperative, no acute distress - EENT Eyes: Present: anicteric sclerae, EOMI, PERRLA, dentition normal ENT: Present: NA/AT, normal oropharynx, thrush - Neck Neck: Present: normal ROM - Respiratory Respiratory: bilateral: CTA, negative: diminished, dullness - Cardiovascular Rhythm: regular Heart sounds: normal: S1, S2 Abnormal Heart Sounds: Absent: systolic murmur, diastolic murmur, rub, S3 Gallop , S4 Gallop, click, other - Gastrointestinal General gastrointestinal: Present: soft - Integumentary Integumentary: Present: normal - Musculoskeletal Musculoskeletal: Present: generalized weakness, strength equal bilaterally - Psychiatric Psychiatric: Present: A&O x's 3, appropriate affect, intact judgment & insight - Labs CBC & Chem 7: 11/21/16 06:41 11/21/16 06:41 Labs: Abnormal Lab Results - Last 24 Hours (Table) 11/21/16 11/21/16 11/21/16 Range/Units 04:14 06:41 06:41 WBC 10.8 H (3.8-10.6) k/uL RBC 2.36 L (3.80-5.40) m/uL Hgb 7.4 L (11.4-16.0) gm/dL Hct 22.5 L (34.0-46.0) % RDW 16.7 H (11.5-15.5) % BUN 33 H (7-17) mg/dL Creatinine 1.39 H (0.52-1.04) mg/dL Glucose 117 H (74-99) mg/dL Urine Appearance Cloudy H (Clear) Urine Protein Trace H (Negative) Urine Blood Moderate H (Negative) Ur Leukocyte Esterase Large H (Negative) Urine RBC 36 H (0-5) /hpf Urine WBC >182 H (0-5) /hpf Urine WBC Clumps Few H (None) /hpf Urine Bacteria Moderate H (None) /hpf Urine Mucus Rare H (None) /hpf Microbiology - Last 24 Hours (Table) 11/21/16 04:14 Urine Culture - Preliminary Urine,Clean Catch Assessment and Plan Plan: 1. Status post fall with left IT fracture. Patient is scheduled to go for intramedullary nailing of the left hip, patient has a significant cardiac history and she underwent a TAVR at to [facility] back in January 2016, and I believe she underwent staging angioplasty of LAD and LCx, echocardiogram as above cardiology consultation, patient did receive at a dose of Lasix 40 mg IV push earlier today because of significant shortness of breath thought to be due to acute diastolic heart failure. 2. CAD post angioplasty of LAD and LCx. Hold aspirin and Plavix for now, continue Imdur 30 mg orally once every day, continue Coreg 3.125 mg orally twice every day, continue Lipitor 40 mg orally once every day. 3. History of severe aortic valve stenosis status post TAVR, echo above. 4. Chronic diastolic heart failure. Patient did receive a dose of Lasix, hip ever IV, start the patient on Coreg 3.125 mg orally twice every day. 5. Chronic kidney disease stage III. Improved Stable at this time. 6. Paroxysmal atrial fibrillation. Currently in sinus rhythm. Stable. 7. Hypothyroidism. Continue Synthroid 100 g orally once every day. 8. History of gout.. Stable at this time. 9. Osteoarthritis. Stable. 10. Anxiety disorder, generalized. Stable at this time. 11. Acute blood loss anemia with large hematoma at surgical site. Pressure dressing to be applied. Repeat dose of IV iron infusion today and Aranesp ordered and repeat hemoglobin at 3 pm. Patient has been refusing blood transfusion 12. Anorexia etiology unknown at this time. Lipase will be obtained. Urinalysis with cultures obtained. Patient was started on Remeron 15 to assist with anorexia. Ambien discontinued for chronic insomnia 12. Acute kidney injury. Improved Avoid nephrotoxic agents. I 6 has been decreased to 20 mg daily. 13. DVT prophylaxis. Patient will go on Lovenox 30 mg subcutaneously once every day. 14. GI prophylaxis. Continue omeprazole 20 mg orally once every day. 15. Acute urinary tract infection with pyuria on erection and ongoing weakness , patient currently is receiving IV Levaquin with the noted ampicillin ALLERGY, 16. Uncontrolled hypertension, lisinopril 10 mg twice a day was started monitor for renal function test Discharge plan: [facility]. Time with Patient: Greater than 30
[2016-11-21] MEDS: LISINOPRIL 10 MG TAB PO SCH (22:15)
[2016-11-22] MEDS ORDERED: BENZOCAINE/MENTHOL LOZENG 1 EACH LOZENGE MUCOUS MEM PRN (01:48)
[2016-11-22] MEDS: LEVOTHYROXINE 100 MCG TAB PO SCH (05:44)
[2016-11-22] MEDS: HYDROcodone/APAP 5-325MG 1 EACH TAB PO PRN ×2 (05:46→17:56)
[2016-11-22 07:03] LABS: Anisocytosis Slight; CH 31.4; CHCM 33.1; HCT 21.9 % (34.0-46.0); HDW 3.63; HGB 7.2 gm/dL (11.4-16.0); Hypochromasia Slight; MCH 31.5 pg (25.0-35.0); MCHC 32.9 g/dL (31.0-37.0); MCV 95.8 fL (80.0-100.0); Macrocytosis Slight; Mean Platelet Volume 7.5; Poikilocytosis Slight; RBC 2.28 m/uL (3.80-5.40); RDW 16.3 % (11.5-15.5); WBC 10.5 k/uL (3.8-10.6)
[2016-11-22 07:09] LABS: Calcium 8.2 mg/dL (8.4-10.2); Potassium 3.8 mmol/L (3.5-5.1)
[2016-11-22] MEDS: LEVOFLOXACIN 250 MG TAB PO SCH (08:57)
[2016-11-22] MEDS: MULTIVITAMINS, THERA 1 EACH TAB PO SCH (08:57)
[2016-11-22] MEDS: FERROUS SULFATE 325 MG TAB PO SCH ×2 (08:58→20:18)
[2016-11-22] MEDS: LISINOPRIL 10 MG TAB PO SCH ×2 (08:58→20:18)
[2016-11-22] MEDS: ASPIRIN 81 MG CHEW PO SCH (08:58)
[2016-11-22] MEDS: CARVEDILOL 3.125 MG TAB PO SCH ×2 (08:58→17:56)
[2016-11-22] MEDS: CLOPIDOGREL 75 MG TAB PO SCH (08:58)
[2016-11-22] MEDS: FUROSEMIDE 20 MG TAB PO SCH (08:58)
[2016-11-22] MEDS: ISOSORBIDE MONONITRATE ER 30 MG TAB.ER.24H PO SCH (08:58)
[2016-11-22] MEDS: PANTOPRAZOLE 40 MG TABLET PO SCH (08:58)
[2016-11-22] MEDS: NYSTATIN 100,000 UNIT/ML SUSP 500,000 UNIT/5 ML CUP PO SCH ×4 (08:59→20:19)
[2016-11-22] MEDS: ENOXAPARIN 30 MG/0.3 ML SYRINGE SQ SCH (08:59)
[2016-11-22] MEDS: FOLIC ACID 1 MG TAB PO SCH ×2 (11:11→20:18)
--- NOTE | 2016-11-22 11:49 | P.PN ---
Subjective Principal diagnosis: Left IT fracture Patient is pleasant 86 yo female seen at bedside today. She is post op day #7 from left IT nail/intramedullary screw. She has pain at operative site as expected. She has remained inpatient due to her post op hemoglobin fluctuating below 7.0. She has remained hemodynamically stable. She denies any new complaints. She denies numbness, tingling, or calf pain. ROS is negative for fever, chills, chest pain, or SOB. Objective - Vital Signs Vital signs: Vital Signs Temp 98.9 F 11/22/16 08:00 Pulse 84 11/22/16 08:00 Resp 16 11/22/16 08:00 BP 122/58 11/22/16 08:00 Pulse Ox 92 L 11/22/16 08:00 Intake & Output 11/21/16 11/22/16 11/22/16 18:59 06:59 18:59 Intake Total 1320 240 360 Balance 1320 240 360 Intake: Intake, IV Titration 100 Amount Levofloxacin 500Mg-D5w 100 Pmx 500 mg In Dextrose/ Water 1 100ml.bag @ 100 mls/hr IVPB ONCE ONE Rx#: [id number] Oral 1220 240 360 Other: Voiding Method Bedpan Bedpan Diaper # Voids 1 1 - Exam Inspection of left hip and leg is benign. There is no active bleeding or drainage from surgical site. The thigh is mildly firm. Esperanza in place. Neurovascular status is intact. Sensation to light touch is intact throughout lower extremity. She can dorsiflex and plantar flex foot and toes. 2+ dorsalis pedis pulses and less than 2 sec cap refill intact. Calf is soft and nontender. - Psychiatric Psychiatric: Present: A&O x's 3, appropriate affect, intact judgment & insight - Labs CBC & Chem 7: 11/22/16 06:34 11/22/16 06:34 Labs: Abnormal Lab Results - Last 24 Hours (Table) 11/22/16 11/22/16 Range/Units 06:34 06:34 RBC 2.28 L (3.80-5.40) m/uL Hgb 7.2 L (11.4-16.0) gm/dL Hct 21.9 L (34.0-46.0) % RDW 16.3 H (11.5-15.5) % Sodium 136 L (137-145) mmol/L BUN 30 H (7-17) mg/dL Creatinine 1.45 H (0.52-1.04) mg/dL Glucose 168 H (74-99) mg/dL Calcium 8.2 L (8.4-10.2) mg/dL Microbiology - Last 24 Hours (Table) 11/21/16 04:14 Urine Culture - Preliminary Urine,Clean Catch Assessment and Plan (1) Fracture, intertrochanteric, left femur Narrative/Plan: She will continue with routine post op orthopedic protocol including pain management, physical therapy, wound care and DVT prophylaxis. Cardiology and IM is following as well for post op medical management. Her HgB is 7.2 today. She remains stable. She may be transferred from orthopedic standpoint when ok with internal medicine. Status: Acute Time with Patient: Less than 30
--- NOTE | 2016-11-22 14:43 | P.PN ---
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 with a previous medical history significant for hypertension and hypertensive cardiovascular disease, hypothyroidism, osteoarthritis, anxiety, CAD post left heart catheter physician back in December 2015 that showed critical stenosis of the LAD and the LCx along with severe aortic valve stenosis, patient was admitted back and drover service in 01/03/2016 when she was admitted to the hospital with difficulty in breathing thought to be due to acute on top of chronic diastolic heart failure along with severe aortic valve stenosis at that time she was referred to [facility] for staging angioplasty and TAVR , patient apparently fell at home and landed on her left hip and she ended up coming to the ER at [facility] where she was found to have an acute displaced IT fracture of the left femur, she was admitted under orthopedic surgery we were asked to see the patient for clearance and she will be seen in consultation by cardiology for medical and cardiology clearance. We will obtain echocardiogram at this point in time to evaluate her LV function. 11/16: Echocardiogram reveals mild mitral regurgitation, mild tricuspid regurgitation, mild concentric left ventricular hypertrophy, EF 55-60%, aortic valve trileaflet and mildly thickened, trace to mild aortic regurgitation. She was cleared by cardiology for surgery. Patient underwent left IT nail and screw yesterday. Home medications will be resumed. IV Lasix to oral. Patient will need Plavix resumed. She denies any chest pain or shortness of breath. 11/17: Patient was resumed back on Plavix and received 1 dose last night. She had a drop in her hemoglobin this morning is 7.0 and IV iron has been ordered. No blood transfusion as patient is a Jehovah witness. Potassium replaced. Patient is continued on Lovenox and aspirin. Anticipate possible discharge tomorrow to subacute rehab. 11/18: Patient had another drop in her hemoglobin down to 6.6. A repeat iron infusion ordered and Aranesp ordered. Ultrasound of the thigh shows a large hematoma. Orthopedics has ordered a pressure dressing. Patient does not have much appetite. Ordered for 1 dose of IV Lasix. Cardiology has decrease oral Lasix to 20 mg daily. Repeat hemoglobin at 3 PM is 7.0. 11/19: Hemoglobin is improved to 7.2. Potassium 3.2 and BUN 35 and creatinine 2.07. Potassium will be replaced. Patient was being prepared for discharge to [facility] today but discharge held by medicine due to acute kidney injury, pain control and anemia. 11/20:. Anorexia still main complaint today. We are anticipating discharge to skilled ECF. Patient has a hemoglobin of 6.6 today has been refusing blood transfusion for several days. Oral fluid hydration. And she would be started, urine urinalysis with culture requested Ambien discontinued in favor of Remeron 15 at bedtime 11/22: Repeat labs show a BUN of 30, creatinine 1.45, hemoglobin 7.2. Patient has been afebrile. Urine culture is in progress. She is on Levaquin. Awaiting urine culture report. Objective - Vital Signs Vital signs: Vital Signs Temp 98.9 F 11/22/16 08:00 Pulse 84 11/22/16 08:00 Resp 16 11/22/16 08:00 BP 122/58 11/22/16 08:00 Pulse Ox 92 L 11/22/16 08:00 Intake & Output 11/21/16 11/22/16 11/22/16 18:59 06:59 18:59 Intake Total 1320 240 360 Balance 1320 240 360 Intake: Intake, IV Titration 100 Amount Levofloxacin 500Mg-D5w 100 Pmx 500 mg In Dextrose/ Water 1 100ml.bag @ 100 mls/hr IVPB ONCE ONE Rx#: [id number] Oral 1220 240 360 Other: Voiding Method Bedpan Bedpan Diaper # Voids 1 1 - Exam General appearance: average body habitus, no acute distress - EENT Eyes: anicteric sclerae, PERRLA, no ptosis, no scleral icterus, normal appearance ENT: hearing grossly normal, normal oropharynx, no thrush Ears: bilateral: normal - Neck Neck: no lymphadenopathy, normal ROM, no rigidity, no stridor, no thyromegaly Carotids: bilateral: upstroke normal Thyroid: bilateral: normal size - Respiratory Respiratory: bilateral: diminished, negative: dullness, rales, rhonchi, wheezing , prolonged expiration, prolonged inspiration - Cardiovascular Rhythm: regular Heart sounds: normal: S1, S2 Abnormal Heart Sounds: systolic murmur, no rub, no click - Gastrointestinal General gastrointestinal: normal bowel sounds, soft, no splenomegaly, no tenderness, umbilical hernia - Integumentary Integumentary: normal, normal turgor - Neurologic Neurologic: CNII-XII intact - Musculoskeletal Musculoskeletal: generalized weakness - Psychiatric Psychiatric: A&O x's 3, appropriate affect, intact judgment & insight - Labs CBC & Chem 7: 11/22/16 06:34 11/22/16 06:34 Labs: Abnormal Lab Results - Last 24 Hours (Table) 11/22/16 11/22/16 Range/Units 06:34 06:34 RBC 2.28 L (3.80-5.40) m/uL Hgb 7.2 L (11.4-16.0) gm/dL Hct 21.9 L (34.0-46.0) % RDW 16.3 H (11.5-15.5) % Sodium 136 L (137-145) mmol/L BUN 30 H (7-17) mg/dL Creatinine 1.45 H (0.52-1.04) mg/dL Glucose 168 H (74-99) mg/dL Calcium 8.2 L (8.4-10.2) mg/dL Microbiology - Last 24 Hours (Table) 11/21/16 04:14 Urine Culture - Preliminary Urine,Clean Catch Assessment and Plan Plan: 1. Status post fall with left IT fracture. Patient is scheduled to go for intramedullary nailing of the left hip, patient has a significant cardiac history and she underwent a TAVR at to [facility] back in January 2016, and I believe she underwent staging angioplasty of LAD and LCx, echocardiogram as above cardiology consultation, patient did receive at a dose of Lasix 40 mg IV push earlier today because of significant shortness of breath thought to be due to acute diastolic heart failure. 2. CAD post angioplasty of LAD and LCx. Hold aspirin and Plavix for now, continue Imdur 30 mg orally once every day, continue Coreg 3.125 mg orally twice every day, continue Lipitor 40 mg orally once every day. 3. History of severe aortic valve stenosis status post TAVR, echo above. 4. Chronic diastolic heart failure. Patient did receive a dose of Lasix, hip ever IV, start the patient on Coreg 3.125 mg orally twice every day. 5. Chronic kidney disease stage III. Stable at this time. 6. Paroxysmal atrial fibrillation. Currently in sinus rhythm. Stable. 7. Hypothyroidism. Continue Synthroid 100 g orally once every day. 8. History of gout.. Stable at this time. 9. Osteoarthritis. Stable. 10. Anxiety disorder, generalized. Stable at this time. 11. Acute blood loss anemia with large hematoma at surgical site. Pressure dressing to be applied. Repeat dose of IV iron infusion today and Aranesp ordered and repeat hemoglobin at 3 pm. 12. Anorexia etiology unknown at this time. Patient was started on Remeron 15 to assist with anorexia. Ambien discontinued for chronic insomnia 13. Acute kidney injury. Improved Avoid nephrotoxic agents. Lasix has been decreased to 20 mg daily. 13. DVT prophylaxis. Patient will go on Lovenox 30 mg subcutaneously once every day. 14. GI prophylaxis. Continue omeprazole 20 mg orally once every day. 15. Acute urinary tract infection with pyuria and ongoing weakness, patient currently is receiving oral Levaquin with the noted ampicillin ALLERGY, 16. Uncontrolled hypertension, lisinopril 10 mg twice a day was started monitor for renal function test Discharge plan: [facility] or [facility]. Impression and plan of care have been directed as dictated by the signing physician. Barbie Dao nurse practitioner acting as scribe for signing physician. Time with Patient: Greater than 30
[2016-11-22] MEDS: ATORVASTATIN 40 MG TAB PO SCH (20:18)
[2016-11-22] MEDS: SENNOSIDES-DOCUSATE SODIUM 1 EACH TAB PO SCH (20:18)
[2016-11-22] MEDS: MIRTAZAPINE 15 MG TAB PO SCH (20:19)
[2016-11-23] MEDS: LEVOTHYROXINE 100 MCG TAB PO SCH (05:27)
[2016-11-23 07:36] LABS: Anisocytosis Slight; CH 31.3; CHCM 33.1; HCT 20.8 % (34.0-46.0); HDW 3.76; Hypochromasia Slight; MCHC 32.4 g/dL (31.0-37.0); MCV 95.7 fL (80.0-100.0); Macrocytosis Slight; Mean Platelet Volume 8.3; Poikilocytosis Slight; RBC 2.17 m/uL (3.80-5.40); RDW 16.3 % (11.5-15.5); WBC 11.3 k/uL (3.8-10.6)
[2016-11-23] MEDS: NYSTATIN 100,000 UNIT/ML SUSP 500,000 UNIT/5 ML CUP PO SCH ×2 (07:42→12:26)
[2016-11-23] MEDS: CARVEDILOL 3.125 MG TAB PO SCH (07:42)
[2016-11-23] MEDS: ISOSORBIDE MONONITRATE ER 30 MG TAB.ER.24H PO SCH (07:42)
[2016-11-23] MEDS: ENOXAPARIN 30 MG/0.3 ML SYRINGE SQ SCH (07:42)
[2016-11-23] MEDS: FUROSEMIDE 20 MG TAB PO SCH (07:42)
[2016-11-23] MEDS: FOLIC ACID 1 MG TAB PO SCH (07:42)
[2016-11-23] MEDS: ASPIRIN 81 MG CHEW PO SCH (07:43)
[2016-11-23] MEDS: LISINOPRIL 10 MG TAB PO SCH (07:43)
[2016-11-23] MEDS: CLOPIDOGREL 75 MG TAB PO SCH (07:43)
[2016-11-23] MEDS: LEVOFLOXACIN 250 MG TAB PO SCH (07:43)
[2016-11-23] MEDS: FERROUS SULFATE 325 MG TAB PO SCH (07:43)
[2016-11-23] MEDS: PANTOPRAZOLE 40 MG TABLET PO SCH (07:43)
[2016-11-23 07:51] VITALS: TEMP 98.2
[2016-11-23 08:03] LABS: HGB 6.7 gm/dL (11.4-16.0)
[2016-11-23 08:06] LABS: Calcium 8.2 mg/dL (8.4-10.2); Potassium 3.8 mmol/L (3.5-5.1)
[2016-11-23] MEDS: HYDROcodone/APAP 5-325MG 1 EACH TAB PO PRN (09:34)
[2016-11-23] MEDS: MULTIVITAMINS, THERA 1 EACH TAB PO SCH (12:25)
[2016-11-23 13:45] VITALS: BMI 29.7
[2016-11-23 15:14] VITALS: BP 116/45; PULSE 72; RESP 16
--- NOTE | 2016-11-23 15:22 | P.PN ---
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 with a previous medical history significant for hypertension and hypertensive cardiovascular disease, hypothyroidism, osteoarthritis, anxiety, CAD post left heart catheter physician back in December 2015 that showed critical stenosis of the LAD and the LCx along with severe aortic valve stenosis, patient was admitted back and drover service in 01/03/2016 when she was admitted to the hospital with difficulty in breathing thought to be due to acute on top of chronic diastolic heart failure along with severe aortic valve stenosis at that time she was referred to [facility] for staging angioplasty and TAVR , patient apparently fell at home and landed on her left hip and she ended up coming to the ER at [facility] where she was found to have an acute displaced IT fracture of the left femur, she was admitted under orthopedic surgery we were asked to see the patient for clearance and she will be seen in consultation by cardiology for medical and cardiology clearance. We will obtain echocardiogram at this point in time to evaluate her LV function. 11/16: Echocardiogram reveals mild mitral regurgitation, mild tricuspid regurgitation, mild concentric left ventricular hypertrophy, EF 55-60%, aortic valve trileaflet and mildly thickened, trace to mild aortic regurgitation. She was cleared by cardiology for surgery. Patient underwent left IT nail and screw yesterday. Home medications will be resumed. IV Lasix to oral. Patient will need Plavix resumed. She denies any chest pain or shortness of breath. 11/17: Patient was resumed back on Plavix and received 1 dose last night. She had a drop in her hemoglobin this morning is 7.0 and IV iron has been ordered. No blood transfusion as patient is a Jehovah witness. Potassium replaced. Patient is continued on Lovenox and aspirin. Anticipate possible discharge tomorrow to subacute rehab. 11/18: Patient had another drop in her hemoglobin down to 6.6. A repeat iron infusion ordered and Aranesp ordered. Ultrasound of the thigh shows a large hematoma. Orthopedics has ordered a pressure dressing. Patient does not have much appetite. Ordered for 1 dose of IV Lasix. Cardiology has decrease oral Lasix to 20 mg daily. Repeat hemoglobin at 3 PM is 7.0. 11/19: Hemoglobin is improved to 7.2. Potassium 3.2 and BUN 35 and creatinine 2.07. Potassium will be replaced. Patient was being prepared for discharge to [facility] today but discharge held by medicine due to acute kidney injury, pain control and anemia. 11/20:. Anorexia still main complaint today. We are anticipating discharge to skilled ECF. Patient has a hemoglobin of 6.6 today has been refusing blood transfusion for several days. Oral fluid hydration. And she would be started, urine urinalysis with culture requested Ambien discontinued in favor of Remeron 15 at bedtime 11/22: Repeat labs show a BUN of 30, creatinine 1.45, hemoglobin 7.2. Patient has been afebrile. Urine culture is in progress. She is on Levaquin. Awaiting urine culture report. 11/23: Hemoglobin today is 6.7. BUN 41 creatinine 1.95. Urine culture is E. coli pansensitive. Patient will be cleared for discharge to ECF. Medication reconciliation completed. Objective - Vital Signs Vital signs: Vital Signs Temp 98.2 F 11/23/16 07:51 Pulse 75 11/23/16 07:51 Resp 14 11/23/16 07:51 BP 117/51 11/23/16 07:51 Pulse Ox 93 L 11/23/16 07:51 Intake & Output 11/22/16 11/23/16 11/23/16 18:59 06:59 18:59 Intake Total 850 Balance 850 Weight 76 kg 76 kg Intake: Oral 850 Other: Voiding Method Diaper Diaper Diaper Incontinent # Voids 1 1 1 - Exam General appearance: average body habitus, no acute distress - EENT Eyes: anicteric sclerae, PERRLA, no ptosis, no scleral icterus, normal appearance ENT: hearing grossly normal, normal oropharynx, no thrush Ears: bilateral: normal - Neck Neck: no lymphadenopathy, normal ROM, no rigidity, no stridor, no thyromegaly Carotids: bilateral: upstroke normal Thyroid: bilateral: normal size - Respiratory Respiratory: bilateral: diminished, negative: dullness, rales, rhonchi, wheezing , prolonged expiration, prolonged inspiration - Cardiovascular Rhythm: regular Heart sounds: normal: S1, S2 Abnormal Heart Sounds: systolic murmur, no rub, no click - Gastrointestinal General gastrointestinal: normal bowel sounds, soft, no splenomegaly, no tenderness, umbilical hernia - Integumentary Integumentary: normal, normal turgor - Neurologic Neurologic: CNII-XII intact - Musculoskeletal Musculoskeletal: generalized weakness - Psychiatric Psychiatric: A&O x's 3, appropriate affect, intact judgment & insight - Labs CBC & Chem 7: 11/23/16 07:18 11/23/16 07:18 Labs: Abnormal Lab Results - Last 24 Hours (Table) 11/23/16 11/23/16 Range/Units 07:18 07:18 WBC 11.3 H (3.8-10.6) k/uL RBC 2.17 L (3.80-5.40) m/uL Hgb 6.7 L* (11.4-16.0) gm/dL Hct 20.8 L (34.0-46.0) % RDW 16.3 H (11.5-15.5) % Sodium 135 L (137-145) mmol/L BUN 41 H (7-17) mg/dL Creatinine 1.95 H (0.52-1.04) mg/dL Glucose 114 H (74-99) mg/dL Calcium 8.2 L (8.4-10.2) mg/dL Microbiology - Last 24 Hours (Table) 11/21/16 04:14 Urine Culture - Final Urine,Clean Catch Escherichia coli Assessment and Plan Plan: 1. Status post fall with left IT fracture. Patient is scheduled to go for intramedullary nailing of the left hip, patient has a significant cardiac history and she underwent a TAVR at to [facility] back in January 2016, and I believe she underwent staging angioplasty of LAD and LCx, echocardiogram as above cardiology consultation, patient did receive at a dose of Lasix 40 mg IV push earlier today because of significant shortness of breath thought to be due to acute diastolic heart failure. 2. CAD post angioplasty of LAD and LCx. Hold aspirin and Plavix for now, continue Imdur 30 mg orally once every day, continue Coreg 3.125 mg orally twice every day, continue Lipitor 40 mg orally once every day. 3. History of severe aortic valve stenosis status post TAVR, echo above. 4. Chronic diastolic heart failure. Patient did receive a dose of Lasix, hip ever IV, start the patient on Coreg 3.125 mg orally twice every day. 5. Chronic kidney disease stage III. Stable at this time. 6. Paroxysmal atrial fibrillation. Currently in sinus rhythm. Stable. 7. Hypothyroidism. Continue Synthroid 100 g orally once every day. 8. History of gout.. Stable at this time. 9. Osteoarthritis. Stable. 10. Anxiety disorder, generalized. Stable at this time. 11. Acute blood loss anemia with large hematoma at surgical site. Pressure dressing to be applied. Repeat dose of IV iron infusion today and Aranesp ordered and repeat hemoglobin at 3 pm. 12. Anorexia etiology unknown at this time. Patient was started on Remeron 15 to assist with anorexia. Ambien discontinued for chronic insomnia 13. Acute kidney injury. Improved Avoid nephrotoxic agents. Lasix has been decreased to 20 mg daily. 13. DVT prophylaxis. Patient will go on Lovenox 30 mg subcutaneously once every day. 14. GI prophylaxis. Continue omeprazole 20 mg orally once every day. 15. E. coli acute urinary tract infection with pyuria and ongoing weakness, patient currently is receiving oral Levaquin changed to Cipro for discharge to complet a total of 10days. 16. Uncontrolled hypertension, lisinopril 10 mg twice a day was started monitor for renal function test Discharge plan: [facility] or [facility]. Impression and plan of care have been directed as dictated by the signing physician. Barbie Dao nurse practitioner acting as scribe for signing physician. Time with Patient: Greater than 30
== END 2016-11-23 14:45 | DRG 480 ==
LOC: EC 04:56 → 6SEL 06:18 → 2ORMAIN 12:24 → 6SEL 17:00 → 3SUR 11-17 13:22
PROVIDERS: ADMIT Orthopaedic Surgery; ATTEND Orthopaedic Surgery
PROC: 0QS736Z Reposition Left Upper Femur with Intramedullary Internal Fixation Device, Percutaneous Approach (ICD-10-PCS; principal; 2016-11-15 07:30)
DX: S72.142A Displaced intertrochanteric fracture of left femur, initial encounter for closed fracture (principal); I50.33 Acute on chronic diastolic (congestive) heart failure; N17.9 Acute kidney failure, unspecified; I13.0 Hypertensive heart and chronic kidney disease with heart failure and stage 1 through stage 4 chronic kidney disease, or unspecified chronic kidney disease; N39.0 Urinary tract infection, site not specified; D62 Acute posthemorrhagic anemia; L76.32 Postprocedural hematoma of skin and subcutaneous tissue following other procedure; I48.0 Paroxysmal atrial fibrillation; E03.9 Hypothyroidism, unspecified; W19.XXXA Unspecified fall, initial encounter; Y92.009 Unspecified place in unspecified non-institutional (private) residence as the place of occurrence of the external cause; E78.5 Hyperlipidemia, unspecified; F41.9 Anxiety disorder, unspecified; I25.10 Atherosclerotic heart disease of native coronary artery without angina pectoris; K21.9 Gastro-esophageal reflux disease without esophagitis; M10.9 Gout, unspecified; M17.0 Bilateral primary osteoarthritis of knee; N18.3 Chronic kidney disease, stage 3 (moderate); Z95.2 Presence of prosthetic heart valve; Z96.1 Presence of intraocular lens
CPT/HCPCS: 36415; 71020; 73501; 73502; 80048; 80053; 81001; 82550; 82553; 83690; 83880; 84132; 84484; 85025; 85027; 85610; 85730; 87077; 87086; 87186; 93005; 93306; 96360; 99285

== ENCOUNTER 2017-01-12 07:27 | Inpatient (IN) | payer MEDICARE, OTHER ==
[2017-01-12] MEDS ORDERED: SODIUM CHLORIDE 0.9% 1,000 ML IV STA (07:39)
--- NOTE | 2017-01-12 07:41 | ED ---
General Adult HPI - General Chief complaint: Recheck/Abnormal Lab/Rx Stated complaint: abnormal labs Time Seen by Provider: 01/12/17 07:29 Source: patient, EMS, RN notes reviewed Mode of arrival: EMS Limitations: altered mental status, physical limitation - History of Present Illness Initial comments: Patient is a pleasant 87-year-old female presenting to the emergency department with concerns for renal failure. Patient is a poor historian and provides little information. has no complaints is unclear why she is here. Patient admits not eating or drinking well. - Related Data Home Medications Medication Instructions Recorded Confirmed Isosorbide Mononitrate ER [Imdur] 30 mg PO DAILY 01/02/16 01/12/17 Omeprazole [PriLOSEC] 40 mg PO DAILY 01/02/16 01/12/17 Levothyroxine Sodium [Synthroid] 100 mcg PO DAILY@1700 01/03/16 01/12/17 Aspirin EC [Ecotrin Low Dose] 81 mg PO DAILY 11/15/16 01/12/17 Atorvastatin [Lipitor] 40 mg PO HS 11/15/16 01/12/17 Carvedilol [Coreg] 3.125 mg PO BID 11/15/16 01/12/17 Multivitamins, Thera [Multivitamin] 1 tab PO HS 11/15/16 01/12/17 Amino Acids/Protein Hydrolys 30 ml PO BID@0800,1600 01/12/17 01/12/17 [Pro-Stat Supplement] Calcium Carbonate [Calcium] 600 mg PO TID@0800,1200,1800 01/12/17 01/12/17 Cholecalciferol [Vitamin D3] 2,000 unit PO DAILY 01/12/17 01/12/17 Ferrous Sulfate [Feosol] 325 mg PO BID 01/12/17 01/12/17 HYDROcodone/APAP 5-325MG [[place] 1 tab PO Q4HR PRN 01/12/17 01/12/17 5-325] HYDROcodone/APAP 5-325MG [[place] 2 tab PO Q4HR PRN 01/12/17 01/12/17 5-325] Previous Rx's Medication Instructions Recorded Docusate [Colace] 100 mg PO BID #60 capsule 11/19/16 ALPRAZolam [Xanax] 0.25 tab PO DAILY PRN #30 tab 11/23/16 Mirtazapine [Remeron] 15 mg PO HS #0 tab 11/23/16 Allergies Allergy/AdvReac Type Severity Reaction Status Date / Time ampicillin Allergy Swelling Verified 01/12/17 08:13 erythromycin base Allergy Swelling Verified 01/12/17 08:13 Review of Systems ROS Statement: Those systems with pertinent positive or pertinent negative responses have been documented in the HPI. ROS Other: All systems not noted in ROS Statement are negative. Constitutional: Denies: fever Eyes: Denies: eye pain ENT: Denies: ear pain Respiratory: Denies: cough Cardiovascular: Denies: chest pain Endocrine: Denies: fatigue Gastrointestinal: Denies: abdominal pain Genitourinary: Denies: dysuria Musculoskeletal: Denies: back pain Skin: Denies: rash Neurological: Denies: weakness Psychiatric: Reports: anxiety Past Medical History Past Medical History: Coronary Artery Disease (CAD), GERD/Reflux, Hyperlipidemia , Hypertension, Osteoarthritis (OA), Renal Disease, Thyroid Disorder Additional Past Medical History / Comment(s): Pt is a [employer] and cannot receive blood. 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 That was done at [facility] [place]. History of Any Multi-Drug Resistant Organisms: None Reported Past Surgical History: No Surgical Hx Reported, Cardiac Valve Replacement, Heart Catheterization Additional Past Surgical History / Comment(s): 01/2016 TAVR at [facility] , bilateral cataract removal and intraocular lens implants with complications. Past Anesthesia/Blood Transfusion Reactions: No Reported Reaction Past Psychological History: Anxiety Additional Psychological History / Comment(s): Pt resides alone. She has caretakers with whom she is very close. She has a cane and walker. She is a [employer] and receive no blood. Smoking Status: Never smoker Past Alcohol Use History: None Reported Additional Past Alcohol Use History / Comment(s): Patient states she is a nonsmoker and denies any alcohol use. Patient is from the [facility] and speaks limited Macedonian. Past Drug Use History: None Reported - Past Family History Mother Family Medical History: Thyroid Disorder Additional Family Medical History / Comment(s): Mother at age 86 had surgery on her neck, possibly heart surgery as well. Father Additional Family Medical History / Comment(s): Father when he was young while in the [employer]. Brother(s) Additional Family Medical History / Comment(s): Patient has 3 full brothers and one half-brother with no major medical problems. Sister(s) Additional Family Medical History / Comment(s): Patient has one half sister that of cancer of unknown type. Patient does not have any children. General Exam Limitations: physical limitation General appearance: alert, in no apparent distress Head exam: Present: atraumatic Eye exam: Present: normal appearance, PERRL ENT exam: Present: normal oropharynx, mucous membranes moist Neck exam: Present: normal inspection Respiratory exam: Present: normal lung sounds bilaterally Cardiovascular Exam: Present: regular rate, normal rhythm GI/Abdominal exam: Present: soft. Absent: tenderness Extremities exam: Present: normal inspection Neurological exam: Present: alert. Absent: motor sensory deficit Expanded Patient oriented to: Present: person, place. Absent: time Psychiatric exam: Present: normal affect, normal mood Skin exam: Absent: rash Course Vital Signs 01/12/17 01/12/17 01/12/17 07:33 09:00 09:31 Temperature 98 F Pulse Rate 75 74 67 Respiratory 18 20 15 Rate Blood Pressure 167/70 129/59 127/60 O2 Sat by Pulse 96 97 100 Oximetry EKG Findings - EKG Comments: EKG Findings:: Normal sinus rhythm at 68. GA 178. QRS 96. QT 446. QTc 474. Normal axis. Normal QRS. Nonspecific ST-T. Medical Decision Making - Medical Decision Making Patient reevaluated and updated. Case discussed in detail with Dr. Dr. Phillips, who will admit for Dr. Villagran. Richie - Lab Data Result diagrams: 01/12/17 08:25 01/12/17 08:25 Lab Results 01/12/17 01/12/17 01/12/17 Range/Units 08:25 08:25 08:25 WBC 6.2 (3.8-10.6) k/uL RBC 3.69 L (3.80-5.40) m/uL Hgb 10.5 L (11.4-16.0) gm/dL Hct 31.4 L (34.0-46.0) % MCV 85.1 (80.0-100.0) fL MCH 28.5 (25.0-35.0) pg MCHC 33.5 (31.0-37.0) g/dL RDW 16.3 H (11.5-15.5) % Plt Count 229 (150-450) k/uL Neutrophils % 69 % Lymphocytes % 22 % Monocytes % 5 % Eosinophils % 2 % Basophils % 1 % Neutrophils # 4.2 (1.3-7.7) k/uL Lymphocytes # 1.3 (1.0-4.8) k/uL Monocytes # 0.3 (0-1.0) k/uL Eosinophils # 0.1 (0-0.7) k/uL Basophils # 0.0 (0-0.2) k/uL Anisocytosis Slight PT 11.1 (9.0-12.0) sec INR 1.1 (<1.1) APTT 22.8 (22.0-30.0) sec Sodium 137 (137-145) mmol/L Potassium 3.6 (3.5-5.1) mmol/L Chloride 94 L (98-107) mmol/L Carbon Dioxide 27 (22-30) mmol/L Anion Gap 16 mmol/L BUN 140 H* (7-17) mg/dL Creatinine 2.55 H (0.52-1.04) mg/dL Est GFR (MDRD) Af Amer 21 (>60 ml/min/1.73 sqM) Est GFR (MDRD) Non-Af 18 (>60 ml/min/1.73 sqM) Glucose 120 H (74-99) mg/dL Calcium 10.1 (8.4-10.2) mg/dL Phosphorus 5.1 H (2.5-4.5) mg/dL Magnesium 2.3 (1.6-2.3) mg/dL Total Bilirubin 0.5 (0.2-1.3) mg/dL AST 22 (14-36) U/L ALT 25 (9-52) U/L Alkaline Phosphatase 103 (38-126) U/L Total Creatine Kinase (30-135) U/L CK-MB (CK-2) (0.0-2.4) ng/mL CK-MB (CK-2) Rel Index Troponin I (0.000-0.034) ng/mL Total Protein 7.4 (6.3-8.2) g/dL Albumin 3.8 (3.5-5.0) g/dL Urine Color Urine Appearance (Clear) Urine pH (5.0-8.0) Ur Specific [place] (1.001-1.035) Urine Protein (Negative) Urine Glucose (UA) (Negative) Urine Ketones (Negative) Urine Blood (Negative) Urine Nitrate (Negative) Urine Bilirubin (Negative) Urine Urobilinogen (<2.0) mg/dL Ur Leukocyte Esterase (Negative) 01/12/17 01/12/17 Range/Units 08:25 08:45 WBC (3.8-10.6) k/uL RBC (3.80-5.40) m/uL Hgb (11.4-16.0) gm/dL Hct (34.0-46.0) % MCV (80.0-100.0) fL MCH (25.0-35.0) pg MCHC (31.0-37.0) g/dL RDW (11.5-15.5) % Plt Count (150-450) k/uL Neutrophils % % Lymphocytes % % Monocytes % % Eosinophils % % Basophils % % Neutrophils # (1.3-7.7) k/uL Lymphocytes # (1.0-4.8) k/uL Monocytes # (0-1.0) k/uL Eosinophils # (0-0.7) k/uL Basophils # (0-0.2) k/uL Anisocytosis PT (9.0-12.0) sec INR (<1.1) APTT (22.0-30.0) sec Sodium (137-145) mmol/L Potassium (3.5-5.1) mmol/L Chloride (98-107) mmol/L Carbon Dioxide (22-30) mmol/L Anion Gap mmol/L BUN (7-17) mg/dL Creatinine (0.52-1.04) mg/dL Est GFR (MDRD) Af Amer (>60 ml/min/1.73 sqM) Est GFR (MDRD) Non-Af (>60 ml/min/1.73 sqM) Glucose (74-99) mg/dL Calcium (8.4-10.2) mg/dL Phosphorus (2.5-4.5) mg/dL Magnesium (1.6-2.3) mg/dL Total Bilirubin (0.2-1.3) mg/dL AST (14-36) U/L ALT (9-52) U/L Alkaline Phosphatase (38-126) U/L Total Creatine Kinase 57 (30-135) U/L CK-MB (CK-2) 1.5 (0.0-2.4) ng/mL CK-MB (CK-2) Rel Index 2.6 Troponin I 0.054 H* (0.000-0.034) ng/mL Total Protein (6.3-8.2) g/dL Albumin (3.5-5.0) g/dL Urine Color Light Yellow Urine Appearance Clear (Clear) Urine pH 6.5 (5.0-8.0) Ur Specific [place] 1.007 (1.001-1.035) Urine Protein Negative (Negative) Urine Glucose (UA) Negative (Negative) Urine Ketones Negative (Negative) Urine Blood Negative (Negative) Urine Nitrate Negative (Negative) Urine Bilirubin Negative (Negative) Urine Urobilinogen <2.0 (<2.0) mg/dL Ur Leukocyte Esterase Negative (Negative) - Radiology Data Radiology results: image reviewed (Abdominal x-ray shows no acute process.) Disposition Clinical Impression: Prerenal azotemia Disposition: ADMITTED IP TO THIS HOSP
--- NOTE | 2017-01-12 08:13 | XR ---
EXAMINATION TYPE: XR KUB DATE OF EXAM: 01/12/2017 7:59 AM COMPARISON: NONE HISTORY: Pain TECHNIQUE: Single supine KUB image of the abdomen is obtained FINDINGS: Small bowel demonstrates no evidence for dilatation or air fluid levels. Gas and fecal material is seen in non-distended colon. No convincing evidence for pneumoperitoneum. No unusual calcifications. The lung bases are clear. The osseous structures are intact. IMPRESSION: 1. Overall nonobstructive bowel gas pattern.
[2017-01-12 08:44] LABS: Anisocytosis Slight; Basophils % (A) 1 %; CH 29.3; CHCM 34.4; Eosinophils # (A) 0.1 k/uL (0-0.7); Eosinophils % (A) 2 %; HCT 31.4 % (34.0-46.0); HDW 3.14; HGB 10.5 gm/dL (11.4-16.0); Luc # (Auto) 0.13; Luc % (Auto) 2; Lymphocytes # (A) 1.3 k/uL (1.0-4.8); Lymphocytes % (A) 22 %; MCH 28.5 pg (25.0-35.0); MCHC 33.5 g/dL (31.0-37.0); MCV 85.1 fL (80.0-100.0); Mean Platelet Volume 8.3; Monocytes # (A) 0.3 k/uL (0-1.0); Monocytes % (A) 5 %; Neutrophils # (A) 4.2 k/uL (1.3-7.7); Neutrophils % (A) 69 %; RBC 3.69 m/uL (3.80-5.40); RDW 16.3 % (11.5-15.5); WBC 6.2 k/uL (3.8-10.6); WBC (Perox) 6.19
[2017-01-12 08:56] LABS: Calcium 10.1 mg/dL (8.4-10.2); Magnesium 2.3 mg/dL (1.6-2.3); Phosphorous 5.1 mg/dL (2.5-4.5); Potassium 3.6 mmol/L (3.5-5.1); Total Bilirubin 0.5 mg/dL (0.2-1.3); Total Protein 7.4 g/dL (6.3-8.2)
[2017-01-12 09:00] LABS: Appearance,Urine Clear (Clear); Bilirubin,Urine Negative (Negative); Glucose,Urine (UA) Negative (Negative); Ketones,Urine Negative (Negative); Leukocyte Esterase,Urine Negative (Negative); Nitrite,Urine Negative (Negative); PH, Urine 6.5 (5.0-8.0); Protein,Urine Negative (Negative); Specific Gravity,Urine 1.007 (1.001-1.035); UA Billing (MACRO vs. MICRO) CHEM; Urobilinogen,Urine <2.0 mg/dL (<2.0)
[2017-01-12 09:17] LABS: INR 1.1 (<1.1); Partial Thromboplastin Time 22.8 sec (22.0-30.0); Prothrombin Time 11.1 sec (9.0-12.0)
[2017-01-12 09:27] LABS: Creatine Kinase MB 1.5 ng/mL (0.0-2.4)
[2017-01-12 09:42] LABS: Troponin I 0.054 ng/mL (0.000-0.034)
[2017-01-12] MEDS ORDERED: NALOXONE 0.4 MG/ML 1 ML VIAL IV PRN (09:50)
[2017-01-12] MEDS: SODIUM CHLORIDE 0.9% 1,000 ML IV SCH ×2 (10:08→17:23)
--- NOTE | 2017-01-12 11:50 | US ---
EXAMINATION TYPE: US kidneys/renal and bladder DATE OF EXAM: 01/12/2017 10:21 AM COMPARISON: NONE CLINICAL HISTORY: Renal failure. EC Patient with renal failure EXAM MEASUREMENTS: Right Kidney: 6.7 x 4.0 x 3.4 cm Left Kidney: 8.9 x 5.0 x 4.3 cm Post Void Residual Volume: not assessed as Wong Catheter is in bladder TECHNOLOGIST IMPRESSION: wnl Right Kidney: abnormally small kidney compared to left side, and thin cortex as is <7mm thick; mid po le large cyst is noted = 2.3 x 2.2 x 2.5cm Left Kidney: small microcalcifications noted mid pole with largest anterior lower pole = 0.4 x 0.2 x 0.2cm . No hydronephrosis is evident. Bladder: Wong Catheter in bladder IMPRESSION: Left renal calcification.
[2017-01-12] MEDS ORDERED: ALPRAZolam 0.25 MG TAB PO PRN (13:50)
[2017-01-12] MEDS ORDERED: HYDROcodone/APAP 5-325MG 1 EACH TAB PO PRN (13:50)
--- NOTE | 2017-01-12 13:50 | P.HPIM ---
History of Present Illness H&P Date: 01/12/17 Chief Complaint: acute kidney injury,recent history of right hip fracture, CAD, hypothyroidi 87-year-old female who does not speak [place] well one of Dr. Wilfredo Villagran's patient with past medical history of CAD, hypertension, hyperlipidemia and renal disease who was in the hospital last in 11/15/2016 for left IT fracture was repair with Dr. Haro and patient was discharged to go to [facility] in rehab where she has been there since. She is known to have stage I to stage II chronic kidney disease has been stable at the time with creatinine previously is down to 1.31. Patient blood test admitted [place] came back with extremely high BUN and creatinine consistent with acute kidney failure and more acute kidney injury can be ATN. Patient was sent to the emergency department at [facility] where was seen and evaluated with her number quite bit high patient was started on hydration Wong catheter and consult nephrology. Ultrasound of the kidney will be done. Patient has been having mild low-grade symptom of change mental status consistent with uremia. Review of Systems Constitutional: Reports anorexia, Reports fatigue, Reports lethargy, Reports night sweats, Reports weakness, Reports weight loss, Denies as per HPI, Denies chills, Denies chronic headaches, Denies chronic pain, Denies daytime sleepiness , Denies fever, Denies malaise, Denies poor appetite, Denies sweats, Denies weight gain Eyes: bilateral as per HPI Ears: bilateral: decreased hearing Ears, nose, mouth and throat: Reports ant. neck pain, Reports mouth pain, Reports nasal congestion, Reports sinus pain, Reports sinus pressure, Denies as per HPI, Denies bleeding gums, Denies dental pain, Denies dysphagia, Denies epistaxis, Denies headache, Denies hoarseness, Denies nasal discharge, Denies neck fullness/pressure, Denies neck lump, Denies nose pain, Denies odynophagia, Denies post-nasal drip, Denies swelling in mouth, Denies swelling in throat, Denies sore throat, Denies vertigo, Denies voice changes Breasts: bilateral: as per HPI Cardiovascular: Reports chest pain, Reports decreased exercise tolerance, Reports dyspnea on exertion, Reports edema, Reports high blood pressure, Reports orthopnea, Reports palpitations, Reports rapid heart beat, Reports shortness of breath, Denies as per HPI, Denies claudication, Denies irregular heart beat, Denies leg edema, Denies lightheadedness, Denies paroxysmal nocturnal dyspnea, Denies phlebitis, Denies syncope Respiratory: Reports congestion, Reports cough, Reports dyspnea, Reports home oxygen, Reports snoring, Denies as per HPI, Denies cough with sputum, Denies excessive sputum, Denies hemoptysis, Denies pain, Denies pain on inspiration, Denies pleurisy, Denies respiratory infections, Denies sleep apnea, Denies wheezing Gastrointestinal: Reports abdominal pain, Reports bloating, Reports change in bowel habits, Reports constipation, Reports dyspepsia, Reports indigestion, Reports nausea, Denies as per HPI, Denies belching, Denies BRBPR, Denies coffee ground emesis, Denies diarrhea, Denies early satiety, Denies excessive gas, Denies heartburn, Denies hematemesis, Denies hematochezia, Denies jaundice, Denies lactose intolerance, Denies loss of appetite, Denies melena, Denies vomiting Genitourinary: Reports stress incontinence, Reports urge incontinence, Denies as per HPI, Denies abnormal vaginal bleeding, Denies decreased libido, Denies difficulty conceiving, Denies difficulty voiding, Denies dysmenorrhea, Denies dyspareunia, Denies dysuria, Denies flank pain, Denies genital sores, Denies hematuria, Denies hot flashes, Denies incomplete emptying, Denies kidney stones , Denies menorrhagia, Denies mixed incontinence, Denies nocturia, Denies pelvic pain, Denies post void dribbling, Denies , Denies prolapse symptoms, Denies urgency, Denies urinary frequency, Denies vaginal discharge, Denies vaginal dryness, Denies vaginal itching, Denies vaginal odor Musculoskeletal: Reports limitation of motion, Reports loss of height, Reports myalgias, Reports neck pain, Reports neck stiffness, Denies as per HPI, Denies arm numbness/tingling, Denies atrophy, Denies fractures, Denies frequent falls, Denies gait dysfunction, Denies hot joints, Denies leg numbness/tingling, Denies low back pain, Denies morning stiffness, Denies muscle cramps, Denies muscle weakness, Denies prior amputations, Denies redness of joints, Denies shooting arm pain, Denies shooting leg pain Integumentary: Reports dryness, Reports pruritus, Reports rash, Denies as per HPI, Denies acne, Denies boils, Denies brittle nails, Denies change in hair/ nails, Denies color changes, Denies darkening of skin, Denies depigmentation, Denies foot/leg ulcers, Denies growths, Denies hirsutism, Denies lesions, Denies onychomycosis, Denies sores, Denies striae, Denies unusual bruising, Denies wounds Neurological: Reports ataxia, Reports confusion, Reports gait dysfunction, Reports numbness, Reports paresthesias, Reports tingling, Reports tremors, Reports weakness, Denies as per HPI, Denies aphasia, Denies balance difficulties , Denies burning pain, Denies change in mentation, Denies change in smell/taste , Denies change in speech, Denies convulsions, Denies double vision, Denies head injury, Denies headaches, Denies hearing difficulties, Denies lack of coordination, Denies loss of vision, Denies memory loss, Denies migraines, Denies motor disturbance, Denies paralysis, Denies seizures, Denies sensory deficit, Denies spasticity, Denies syncope, Denies tic, Denies transient paralysis, Denies vertigo, Denies visual changes Psychiatric: Reports anhedonia, Reports depression, Reports sadness/tearfulness , Denies as per HPI, Denies anxiety, Denies anxiety attacks, Denies change in appetite, Denies change in libido, Denies change in sleep habits, Denies confusion, Denies difficulty concentrating, Denies disorientation, Denies hallucinations, Denies hopelessness, Denies hypersomnia, Denies insomnia, Denies irritability, Denies memory loss, Denies mood swings, Denies paranoia, Denies sleep disturbances, Denies suicidal ideation Endocrine: Reports cold intolerance, Reports excessive thirst, Reports fatigue, Denies as per HPI, Denies deepening of the voice, Denies excessive sweating, Denies flushing, Denies heat intolerance, Denies high blood sugars, Denies increase in ring/shoe/hat size, Denies low blood sugars, Denies nocturia, Denies palpitations, Denies polydipsia, Denies polyphagia, Denies polyuria, Denies proptosis, Denies recent glucocorticoid use, Denies thyroid mass, Denies weight change Hematologic/Lymphatic: Reports easy bruising, Denies as per HPI, Denies easy bleeding, Denies lymphadenopathy, Denies lymphedema, Denies thrombophilia Allergic/Immunologic: Reports allergic rhinitis, Denies as per HPI, Denies anaphylaxis, Denies angioedema, Denies gluten intolerance, Denies persistent infections, Denies seasonal allergies, Denies urticaria, Denies wheezing Past Medical History Past Medical History: Atrial Fibrillation, Coronary Artery Disease (CAD), Eye Disorder, GERD/Reflux, Hyperlipidemia, Hypertension, Osteoarthritis (OA), Renal Disease, Thyroid Disorder Additional Past Medical History / Comment(s): Pt is a Bahai and cannot receive blood. 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 History of Any Multi-Drug Resistant Organisms: None Reported Past Surgical History: No Surgical Hx Reported, Cardiac Valve Replacement, Heart Catheterization, Orthopedic Surgery Additional Past Surgical History / Comment(s): 12/2016 L femur IT nailing, 2015 TAVR at [facility], bilateral cataract removal and intraocular lens implants with complications, [place] [facility] [place] Past Anesthesia/Blood Transfusion Reactions: No Reported Reaction Past Psychological History: Anxiety Additional Psychological History / Comment(s): Pt is a Bahai and states she cannot receive blood. She is residing at [facility] since 12/2016 for rehab after fall with L femur fx and surgery. She states staff is assisting her up into a chair. States she feeds herself but needs help with other ADls. Pt is from [facility] and is fluent in [place]. She reads and writes in Palestinian. She can understand [place] somewhat-speak slowly. Smoking Status: Never smoker Past Alcohol Use History: None Reported Additional Past Alcohol Use History / Comment(s): Patient states she is a nonsmoker and denies any alcohol use. Past Drug Use History: None Reported - Past Family History Mother Family Medical History: Thyroid Disorder Additional Family Medical History / Comment(s): Mother at age 86 had surgery on her neck, possibly heart surgery as well. Father Additional Family Medical History / Comment(s): Father when he was young while in the [employer]. Brother(s) Additional Family Medical History / Comment(s): Patient has 3 full brothers and one half-brother with no major medical problems. Sister(s) Additional Family Medical History / Comment(s): Patient has one half sister that of cancer of unknown type. Patient does not have any children. Medications and Allergies Home Medications Medication Instructions Recorded Confirmed Type Isosorbide Mononitrate ER [Imdur] 30 mg PO DAILY 01/02/16 01/12/17 History Omeprazole [PriLOSEC] 40 mg PO DAILY 01/02/16 01/12/17 History Levothyroxine Sodium [Synthroid] 100 mcg PO DAILY@1700 01/03/16 01/12/17 History Aspirin EC [Ecotrin Low Dose] 81 mg PO DAILY 11/15/16 01/12/17 History Atorvastatin [Lipitor] 40 mg PO HS 11/15/16 01/12/17 History Carvedilol [Coreg] 3.125 mg PO BID 11/15/16 01/12/17 History Multivitamins, Thera [Multivitamin] 1 tab PO HS 11/15/16 01/12/17 History Amino Acids/Protein Hydrolys 30 ml PO BID@0800,1600 01/12/17 01/12/17 History [Pro-Stat Supplement] Calcium Carbonate [Calcium] 600 mg PO TID@0800,1200,1800 01/12/17 01/12/17 History Cholecalciferol [Vitamin D3] 2,000 unit PO DAILY 01/12/17 01/12/17 History Ferrous Sulfate [Feosol] 325 mg PO BID 01/12/17 01/12/17 History HYDROcodone/APAP 5-325MG [Thida 1 tab PO Q4HR PRN 01/12/17 01/12/17 History 5-325] HYDROcodone/APAP 5-325MG [Thida 2 tab PO Q4HR PRN 01/12/17 01/12/17 History 5-325] Allergies Allergy/AdvReac Type Severity Reaction Status Date / Time ampicillin Allergy Swelling Verified 01/12/17 08:13 erythromycin base Allergy Swelling Verified 01/12/17 08:13 Physical Exam Vitals: Vital Signs Temp Pulse Resp BP Pulse Ox 01/12/17 10:49 97.7 F 70 16 139/60 100 Intake and Output 01/11/17 01/12/17 01/12/17 22:59 06:59 14:59 Other: Voiding Method Indwelling Catheter - Constitutional General appearance: no average body habitus, cooperative, disheveled, no mild distress, no morbidly obese, no acute distress, no obese, no severe distress, no thin - EENT Eyes: no abnormal pupil, no anicteric sclerae, no disc margins sharp, no edentulous, no EOMI, no PERRLA, no fundus normal, no photophobia, no dentition normal, no poor dentition, no ptosis, no scleral icterus, normal appearance ENT: no hard of hearing, no hearing grossly normal, no NA/AT, normal oropharynx , no other, pharyngeal erythema, no thrush, no tonsillar exudates, no tonsillar swelling Ears: bilateral: normal - Neck Neck: no lymphadenopathy, normal ROM, no other, no rigidity, no stridor, no thyromegaly Carotids: bilateral: upstroke normal, upstroke delayed Thyroid: bilateral: normal size - Respiratory Respiratory: bilateral: CTA, diminished, dullness, rales - Cardiovascular Rhythm: regular Heart sounds: normal: S1, S2 Abnormal Heart Sounds: systolic murmur, S3 Gallop - Gastrointestinal General gastrointestinal: no absent bowel sounds, decreased bowel sounds, distended, no hepatomegaly, no hyperactive bowel sounds, normal bowel sounds, no organomegaly, no rigid, no scaphoid, soft, no splenomegaly, no tenderness, no umbilical hernia, no ventral hernia - Integumentary Integumentary: no calor, cellulitis, no cyanotic, no decreased turgor, no flushed, no jaundiced, normal, no normal turgor, pale, rash, no ulcer - Neurologic Neurologic: CNII-XII intact - Musculoskeletal Musculoskeletal: no gait normal, generalized weakness, no strength equal bilaterally, no right sided weakness, no left sided weakness - Psychiatric Psychiatric: no A&O x's 3, appropriate affect, no intact judgment & insight Results CBC & Chem 7: 01/12/17 08:25 01/12/17 08:25 Thrombosis Risk Factor Assmnt - DVT/VTE Prophylaxis DVT/VTE Prophylaxis: Pharmacologic Prophylaxis ordered, Mechanical Prophylaxis ordered - Choose All That Apply Any of the Below Risk Factors Present?: Yes Each Factor Represents 1 point: Obesity (BMI >25) Other Risk Factors: Yes Each Risk Factor Represents 3 Points: Age 75 years or older Other congenital or acquired thrombophilia - If yes, enter type in comment: No Thrombosis Risk Factor Assessment Total Risk Factor Score: 4 Thrombosis Risk Factor Assessment Level: Moderate Risk Assessment and Plan Plan: 1 acute kidney injury: Possibility of ATN is very high patient is known to have chronic kidney disease as well with her current symptoms patient will be on IV hydration consult nephrology we'll take any nephrotoxic agent away continue to watch her urine output was order ultrasound of the kidney to exclude the possibility of obstruction. 2 mild change mental status: Most likely secondary to acute uremia try to correct underlying disease at this point. 3 CAD: No chest pain or angina has been doing well lately. 4 elevated troponin: Not clear etiology at this point no sign and symptom of NE this can be troponin leak we'll consult cardiology continue CK with troponin 3. 5 hypothyroidism: Continue Synthroid as before. 6 history of severe aortic valve stenosis post total aortic valve placement has been doing well at this point. 7 history of chronic diastolic congestive heart failure: Has been doing well withhome meds include Coreg and indoor. 8 hyperlipidemia: Remain on atorvastatin 40 mg daily. 9 severe GERD: Continue patient on Prilosec 40 mg daily. 10 iron deficiency anemia: Has been on iron supplement regularly she had transfusion after surgery last month. 11 DVT prophylaxis: Patient will be on heparin subcutaneous continue knee-high JAXSON gomez. CODE STATUS: Full code. Expectation from this admission: Patient be in the hospital for more than 2 nights.
[2017-01-12] MEDS ORDERED: NON-FORMULARY DRUG (Amino Acids/Protein Hydrolys [Pro-Stat Supplement] 30 ML) PO SCH (16:00)
[2017-01-12] MEDS: CARVEDILOL 3.125 MG TAB PO SCH (17:22)
[2017-01-12] MEDS: LEVOTHYROXINE 100 MCG TAB PO SCH (17:22)
[2017-01-12] MEDS: CALCIUM CARBONATE 500 MG CHEWABLE PO SCH (17:22)
[2017-01-12] MEDS: HEPARIN SODIUM,PORCINE 5,000 UNIT/ML 1 ML VIAL SQ SCH (20:27)
[2017-01-12] MEDS: FERROUS SULFATE 325 MG TAB PO SCH (20:27)
[2017-01-12] MEDS: ATORVASTATIN 40 MG TAB PO SCH (20:27)
[2017-01-12] MEDS: DOCUSATE 100 MG CAP PO SCH (20:27)
[2017-01-12] MEDS: MULTIVITAMINS, THERA 1 EACH TAB PO SCH (20:27)
[2017-01-12] MEDS: MIRTAZAPINE 15 MG TAB PO SCH (20:28)
[2017-01-13] MEDS: SODIUM CHLORIDE 0.9% 1,000 ML IV SCH ×3 (02:03→18:32)
[2017-01-13] MEDS: HEPARIN SODIUM,PORCINE 5,000 UNIT/ML 1 ML VIAL SQ SCH ×2 (07:53→21:52)
[2017-01-13] MEDS: ISOSORBIDE MONONITRATE ER 30 MG TAB.ER.24H PO SCH (07:53)
[2017-01-13] MEDS: CALCIUM CARBONATE 500 MG CHEWABLE PO SCH ×3 (07:53→18:30)
[2017-01-13] MEDS: FERROUS SULFATE 325 MG TAB PO SCH ×2 (07:53→21:52)
[2017-01-13] MEDS: DOCUSATE 100 MG CAP PO SCH ×2 (07:53→21:52)
[2017-01-13] MEDS: PANTOPRAZOLE 40 MG TABLET PO SCH (07:53)
[2017-01-13] MEDS: ASPIRIN 81 MG CHEW PO SCH (07:53)
[2017-01-13] MEDS: CARVEDILOL 3.125 MG TAB PO SCH ×2 (07:53→18:30)
[2017-01-13 08:27] LABS: Anisocytosis Slight; Basophils # (A) 0.1 k/uL (0-0.2); Basophils % (A) 1 %; CH 28.8; Eosinophils # (A) 0.1 k/uL (0-0.7); Eosinophils % (A) 2 %; HDW 3.04; HGB 9.4 gm/dL (11.4-16.0); Hypochromasia Slight; Luc # (Auto) 0.11; Luc % (Auto) 2; Lymphocytes # (A) 1.2 k/uL (1.0-4.8); Lymphocytes % (A) 23 %; MCH 28.3 pg (25.0-35.0); MCHC 31.4 g/dL (31.0-37.0); Mean Platelet Volume 7.8; Monocytes # (A) 0.3 k/uL (0-1.0); Monocytes % (A) 5 %; Neutrophils # (A) 3.5 k/uL (1.3-7.7); Neutrophils % (A) 67 %; RBC 3.33 m/uL (3.80-5.40); RDW 16.2 % (11.5-15.5); WBC 5.3 k/uL (3.8-10.6); WBC (Perox) 5.46
[2017-01-13 08:29] LABS: MCV 90.2 fL (80.0-100.0)
[2017-01-13 08:33] LABS: Calcium 8.9 mg/dL (8.4-10.2); Potassium 3.4 mmol/L (3.5-5.1); Total Bilirubin 0.4 mg/dL (0.2-1.3); Total Protein 6.4 g/dL (6.3-8.2)
--- NOTE | 2017-01-13 11:20 | P.CRDCN ---
History of Present Illness Consult date: 01/13/17 Consult reason: non-Q-wave [place] History of present illness: 87-year-old lady with history of coronary artery disease status post multivessel angioplasty iritic stenosis status post aortic valve replacement history of chronic decub ulcer of the foot was admitted to hospital with symptoms of worsening renal failure. Cardiology has been consulted because of elevated troponins. Her troponins are in the figueroa zone and are probably related to the elevated creatinine. She has severe renal insufficiency mostly prerenal. She is currently being hydrated with improving renal functions. EKG does not reveal ischemic changes. Patient does not have angina. Patient's troponin is not consistent with a diagnosis of myocardial infarction. I reviewed her old records. I'm going to obtain a 2-D echo to assess her LV function and wall motion to assess the prosthetic valve. Patient is a poor historian and is somewhat unsure who follows her and regular basis Review of Systems Constitutional: Denies chills. Denies fever. Eyes: Denies blurred vision. Denies pain. Ears, nose, mouth and throat: Denies headache. Denies sore throat. Hearing impaired Cardiovascular: Denies chest pain. Denies shortness of breath. Respiratory: Denies cough. Gastrointestinal: Denies abdominal pain. Denies diarrhea. Denies nausea. Denies vomiting. Musculoskeletal: Denies myalgias. Joint pains Integumentary: Denies pruritus. Denies rash. Nonhealing ulcer Neurological: Denies numbness. Denies weakness. Psychiatric: Denies anxiety. Denies depression. Endocrine: Denies fatigue. Denies weight change. Genitourinary: Denies burning, hematuria, frequency of urination. Hematological: No anemia or excess bleeding. Past Medical History Past Medical History: Atrial Fibrillation, Coronary Artery Disease (CAD), Eye Disorder, GERD/Reflux, Hyperlipidemia, Hypertension, Osteoarthritis (OA), Renal Disease, Thyroid Disorder Additional Past Medical History / Comment(s): Pt is a Spiritism and cannot receive blood. 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 History of Any Multi-Drug Resistant Organisms: None Reported Past Surgical History: No Surgical Hx Reported, Cardiac Valve Replacement, Heart Catheterization, Orthopedic Surgery Additional Past Surgical History / Comment(s): 12/2016 L femur IT nailing, 2015 TAVR at [facility], bilateral cataract removal and intraocular lens implants with complications, ? angioplasty at [facility] [place]. Past Anesthesia/Blood Transfusion Reactions: No Reported Reaction Past Psychological History: Anxiety Additional Psychological History / Comment(s): Pt is a Spiritism and states she cannot receive blood. She is residing at [facility] since 12/2016 for rehab after fall with L femur fx and surgery. She states staff is assisting her up into a chair. States she feeds herself but needs help with other ADls. Pt is from [facility] and is fluent in Zambian. She reads and writes in Zambian. She can understand Spanish somewhat-speak slowly. Smoking Status: Never smoker Past Alcohol Use History: None Reported Additional Past Alcohol Use History / Comment(s): Patient states she is a nonsmoker and denies any alcohol use. Past Drug Use History: None Reported - Past Family History Mother Family Medical History: Thyroid Disorder Additional Family Medical History / Comment(s): Mother at age 86 had surgery on her neck, possibly heart surgery as well. Father Additional Family Medical History / Comment(s): Father when he was young while in the Army. Brother(s) Additional Family Medical History / Comment(s): Patient has 3 full brothers and one half-brother with no major medical problems. Sister(s) Additional Family Medical History / Comment(s): Patient has one half sister that of cancer of unknown type. Patient does not have any children. Medications and Allergies Home Medications Medication Instructions Recorded Confirmed Type Isosorbide Mononitrate ER [Imdur] 30 mg PO DAILY 01/02/16 01/12/17 History Omeprazole [PriLOSEC] 40 mg PO DAILY 01/02/16 01/12/17 History Levothyroxine Sodium [Synthroid] 100 mcg PO DAILY@1700 01/03/16 01/12/17 History Aspirin EC [Ecotrin Low Dose] 81 mg PO DAILY 11/15/16 01/12/17 History Atorvastatin [Lipitor] 40 mg PO HS 11/15/16 01/12/17 History Carvedilol [Coreg] 3.125 mg PO BID 11/15/16 01/12/17 History Multivitamins, Thera [Multivitamin] 1 tab PO HS 11/15/16 01/12/17 History Amino Acids/Protein Hydrolys 30 ml PO BID@0800,1600 01/12/17 01/12/17 History [Pro-Stat Supplement] Calcium Carbonate [Calcium] 600 mg PO TID@0800,1200,1800 01/12/17 01/12/17 History Cholecalciferol [Vitamin D3] 2,000 unit PO DAILY 01/12/17 01/12/17 History Ferrous Sulfate [Feosol] 325 mg PO BID 01/12/17 01/12/17 History HYDROcodone/APAP 5-325MG [[place] 1 tab PO Q4HR PRN 01/12/17 01/12/17 History 5-325] HYDROcodone/APAP 5-325MG [[place] 2 tab PO Q4HR PRN 01/12/17 01/12/17 History 5-325] Allergies Allergy/AdvReac Type Severity Reaction Status Date / Time ampicillin Allergy Swelling Verified 01/12/17 08:13 erythromycin base Allergy Swelling Verified 01/12/17 08:13 Physical Exam Vitals: Vital Signs Temp Pulse Resp BP Pulse Ox 01/13/17 07:00 97.6 F 63 20 110/52 96 01/12/17 23:00 97.3 F L 67 17 134/60 98 01/12/17 15:00 98.4 F 72 16 104/51 97 01/12/17 12:30 97.4 F L 72 16 122/65 98 Intake and Output 01/12/17 01/13/17 01/13/17 22:59 06:59 14:59 Intake Total 1200 1320 120 Output Total 1500 1700 Balance -300 -380 120 Intake: IV 1320 Sodium Chloride 0.9% 1, 1320 000 ml @ 120 mls/hr IV . Q8H20M [facility] Rx#:[id number] Oral 1200 120 Output: Urine 1500 1700 Other: Voiding Method Indwelling Catheter Indwelling Catheter Indwelling Catheter # Voids 3 General: The patient is awake and alert, in no distress, and does not appear acutely ill. Skin: Skin is warm and dry and no rashes or lesions are noted. Eye: Pupils are equal, round and reactive to light, extra-ocular movements are intact; there is normal conjunctiva bilaterally. Ears, nose, mouth and throat: There are moist mucous membranes and no oral lesions. Neck: The neck is supple, there is no tenderness or JVD. Cardiovascular: There is a regular rate and rhythm. Ejection systolic murmur in the aortic area Respiratory: Lungs are clear to auscultation, respirations are non-labored, breath sounds are equal. Gastrointestinal: Soft, non-distended, non-tender abdomen without masses or organomegaly noted. There is no rebound or guarding present. Bowel sounds are unremarkable. Back: There is no tenderness to palpation in the midline. There is no obvious deformity. Musculoskeletal: Normal ROM, no tenderness, There is no pedal edema. There is no calf tenderness or swelling. Nonhealing ulcer Extremities: No edema. Vascular: Posterior tibial pulses are normal .Dorsalis pedis is palpable. Neurological: CN II-XII intact. There are no obvious motor or sensory deficits. Speech is normal. Psychiatric: Cooperative, appropriate mood & affect, normal judgment. Results 01/13/17 07:54 01/13/17 07:54 Cardiac Enzymes 01/12/17 01/13/17 Range/Units 15:25 07:54 AST 20 (14-36) U/L Troponin I 0.059 H* (0.000-0.034) ng/mL CBC 01/13/17 Range/Units 07:54 WBC 5.3 (3.8-10.6) k/uL RBC 3.33 L (3.80-5.40) m/uL Hgb 9.4 L (11.4-16.0) gm/dL Hct 30.0 L (34.0-46.0) % Plt Count 207 (150-450) k/uL Comprehensive Metabolic Panel 01/13/17 Range/Units 07:54 Sodium 143 (137-145) mmol/L Potassium 3.4 L (3.5-5.1) mmol/L Chloride 107 (98-107) mmol/L Carbon Dioxide 24 (22-30) mmol/L BUN 108 H* (7-17) mg/dL Creatinine 1.97 H (0.52-1.04) mg/dL Glucose 140 H (74-99) mg/dL Calcium 8.9 (8.4-10.2) mg/dL AST 20 (14-36) U/L ALT 24 (9-52) U/L Alkaline Phosphatase 83 (38-126) U/L Total Protein 6.4 (6.3-8.2) g/dL Albumin 3.1 L (3.5-5.0) g/dL Current Medications Generic Name Dose Route Start Last Admin Trade Name Freq PRN Reason Stop Dose Admin Hydrocodone Bitart/Acetaminophen 1 each 01/12/17 13:50 [place]ermyn 5-325 PO Q6HR PRN Mild Pain Alprazolam 0.25 mg 01/12/17 13:50 Xanax PO DAILY PRN Anxiety Aspirin 81 mg 01/13/17 09:00 01/13/17 07:53 Aspirin PO 81 mg DAILY [facility] Administration Atorvastatin Calcium 40 mg 01/12/17 21:00 01/12/17 20:27 Lipitor PO 40 mg HS [facility] Administration Calcium Carbonate/Glycine 500 mg 01/12/17 18:00 01/13/17 07:53 Tums PO 500 mg TID@0800,1200,1800 [facility] Administration Carvedilol 3.125 mg 01/12/17 17:30 01/13/17 07:53 Coreg PO 3.125 mg BID-W/MEALS [facility] Administration Cholecalciferol 2,000 unit 01/13/17 12:00 Vitamin D3 PO DAILY@1200 [facility] Docusate Sodium 100 mg 01/12/17 21:00 01/13/17 07:53 Colace PO 100 mg BID [facility] Administration Ferrous Sulfate 325 mg 01/12/17 21:00 01/13/17 07:53 Feosol PO 325 mg BID [facility] Administration Heparin Sodium (Porcine) 5,000 unit 01/12/17 21:00 01/13/17 07:53 Heparin SQ 5,000 unit Q12HR [facility] Administration Sodium Chloride 1,000 mls @ 120 mls/hr 01/12/17 10:00 01/13/17 02:03 Saline 0.9% IV 120 mls/hr .Q8H20M [facility] Administration Isosorbide Mononitrate 30 mg 01/13/17 09:00 01/13/17 07:53 Imdur PO 30 mg DAILY [facility] Administration Levothyroxine Sodium 100 mcg 01/12/17 17:00 01/12/17 17:22 Synthroid PO 100 mcg DAILY@1700 [facility] Administration Mirtazapine 15 mg 01/12/17 21:00 01/12/17 20:28 Remeron PO 15 mg HS [facility] Administration Multivitamins 1 each 01/12/17 21:00 01/12/17 20:27 Theragran PO 1 each HS [facility] Administration Naloxone HCl 0.2 mg 01/12/17 09:50 Narcan IV Q2M PRN Opioid Reversal Pantoprazole Sodium 40 mg 01/13/17 07:30 01/13/17 07:53 Protonix PO 40 mg [id number] [facility] Administration Intake and Output 01/12/17 01/13/17 01/13/17 22:59 06:59 14:59 Intake Total 1200 1320 120 Output Total 1500 1700 Balance -300 -380 120 Intake: IV 1320 Sodium Chloride 0.9% 1, 1320 000 ml @ 120 mls/hr IV . Q8H20M [facility] Rx#:[id number] Oral 1200 120 Output: Urine 1500 1700 Other: Voiding Method Indwelling Catheter Indwelling Catheter Indwelling Catheter # Voids 3 01/13/17 07:54 01/13/17 07:54 EKG Interpretations (text) Normal sinus rhythm within normal limits Assessment and Plan Plan: Elevated troponin Acute worsening of the chronic renal failure Status post aortic valve replacement Coronary artery disease status post multivessel angioplasty I will review the echocardiogram I agree with the current management plans I will review her outpatient records
[2017-01-13] MEDS: CHOLECALCIFEROL 1,000 UNIT TAB PO SCH (12:09)
--- NOTE | 2017-01-13 13:43 | P.PN ---
Subjective 87-year-old female who does not speak Macedonian well one of Dr. Wilfredo Villagran's patient with past medical history of CAD, hypertension, hyperlipidemia and renal disease who was in the hospital last in 11/15/2016 for left IT fracture was repair with Dr. Haro and patient was discharged to go to [facility] in rehab where she has been there since. She is known to have stage I to stage II chronic kidney disease has been stable at the time with creatinine previously is down to 1.31. Patient blood test admitted [facility] came back with extremely high BUN and creatinine consistent with acute kidney failure and more acute kidney injury can be ATN. Patient was sent to the emergency department at [facility] where was seen and evaluated with her number quite bit high patient was started on hydration Wong catheter and consult nephrology. Ultrasound of the kidney will be done. Patient has been having mild low-grade symptom of change mental status consistent with uremia. 01/13: Repeat kidney function reveals BUN of 108 and creatinine 1.97. Renal ultrasound showed left kidney calcification. Consult with nephrology in place. Patient has been seen by cardiology. Echocardiogram pending. Objective - Vital Signs Vital signs: Vital Signs Temp 97.6 F 01/13/17 07:00 Pulse 63 01/13/17 07:00 Resp 20 01/13/17 07:00 BP 110/52 01/13/17 07:00 Pulse Ox 96 01/13/17 07:00 Intake & Output 01/12/17 01/13/17 01/13/17 18:59 06:59 18:59 Intake Total 1740 1520 120 Output Total 1500 1700 Balance 240 -180 120 Intake: IV 740 1320 Sodium Chloride 0.9% 1, 740 1320 000 ml @ 120 mls/hr IV . Q8H20M [facility] Rx#:[id number] Oral 1000 200 120 Output: Urine 1500 1700 Other: Voiding Method Indwelling Catheter Indwelling Catheter Indwelling Catheter # Voids 3 - Exam General appearance: no average body habitus, cooperative, disheveled, no mild distress, no morbidly obese, no acute distress, no obese, no severe distress, no thin - EENT Eyes: no abnormal pupil, no anicteric sclerae, no disc margins sharp, no edentulous, no EOMI, no PERRLA, no fundus normal, no photophobia, no dentition normal, no poor dentition, no ptosis, no scleral icterus, normal appearance ENT: no hard of hearing, no hearing grossly normal, no NA/AT, normal oropharynx , no other, pharyngeal erythema, no thrush, no tonsillar exudates, no tonsillar swelling Ears: bilateral: normal - Neck Neck: no lymphadenopathy, normal ROM, no other, no rigidity, no stridor, no thyromegaly Carotids: bilateral: upstroke normal, upstroke delayed Thyroid: bilateral: normal size - Respiratory Respiratory: bilateral: CTA, diminished, dullness, rales - Cardiovascular Rhythm: regular Heart sounds: normal: S1, S2 Abnormal Heart Sounds: systolic murmur, S3 Gallop - Gastrointestinal General gastrointestinal: no absent bowel sounds, decreased bowel sounds, distended, no hepatomegaly, no hyperactive bowel sounds, normal bowel sounds, no organomegaly, no rigid, no scaphoid, soft, no splenomegaly, no tenderness, no umbilical hernia, no ventral hernia - Integumentary Integumentary: no calor, cellulitis, no cyanotic, no decreased turgor, no flushed, no jaundiced, normal, no normal turgor, pale, rash, no ulcer - Neurologic Neurologic: CNII-XII intact - Musculoskeletal Musculoskeletal: no gait normal, generalized weakness, no strength equal bilaterally, no right sided weakness, no left sided weakness - Psychiatric Psychiatric: no A&O x's 3, appropriate affect, no intact judgment & insight - Labs CBC & Chem 7: 01/13/17 07:54 01/13/17 07:54 Labs: Abnormal Lab Results - Last 24 Hours (Table) 01/12/17 01/13/17 01/13/17 Range/Units 15:25 07:54 07:54 RBC 3.33 L (3.80-5.40) m/uL Hgb 9.4 L (11.4-16.0) gm/dL Hct 30.0 L (34.0-46.0) % RDW 16.2 H (11.5-15.5) % Potassium 3.4 L (3.5-5.1) mmol/L BUN 108 H* (7-17) mg/dL Creatinine 1.97 H (0.52-1.04) mg/dL Glucose 140 H (74-99) mg/dL Troponin I 0.059 H* (0.000-0.034) ng/mL Albumin 3.1 L (3.5-5.0) g/dL Assessment and Plan Plan: 1 acute kidney injury: Possibility of ATN is very high patient is known to have chronic kidney disease as well with her current symptoms patient will be on IV hydration consult nephrology we'll take any nephrotoxic agent away continue to watch her urine output was order ultrasound of the kidney to exclude the possibility of obstruction. 2 mild metabolic encephalopathy: Most likely secondary to acute uremia try to correct underlying disease at this point. 3 CAD: No chest pain or angina has been doing well lately. 4 elevated troponin: Not clear etiology at this point no sign and symptom of NC this can be troponin leak we'll consult cardiology continue CK with troponin 3. 5 hypothyroidism: Continue Synthroid as before. 6 history of severe aortic valve stenosis post total aortic valve placement has been doing well at this point. 7 history of chronic diastolic congestive heart failure: Has been doing well withhome meds include Coreg and indoor. 8 hyperlipidemia: Remain on atorvastatin 40 mg daily. 9 severe GERD: Continue patient on Prilosec 40 mg daily. 10 iron deficiency anemia: Has been on iron supplement regularly she had transfusion after surgery last month. 11 DVT prophylaxis: Patient will be on heparin subcutaneous continue knee-high JAXSON hose. CODE STATUS: Full code. Discharge plan: Return to [facility] Impression and plan of care have been directed as dictated by the signing physician. Barbie Dao nurse practitioner acting as scribe for signing physician. Time with Patient: Greater than 30
[2017-01-13 14:55] VITALS: BMI 29.2
[2017-01-13] MEDS ORDERED: POTASSIUM CHLORIDE ER 20 MEQ TAB.ER PO STA (16:30)
--- NOTE | 2017-01-13 16:31 | P.NPCON ---
History of Present Illness - Reason for Consult acute renal failure - History of Present Illness Reason for consultation: Acute kidney injury History of present illness: Patient is a 87-year-old female seen in renal consultation for acute kidney injury. Patient has chronic kidney disease stage III secondary to nephrosclerosis of the pacing creatinine in the range of 1.3-1.5. Patient resides at [facility] and had blood work done which revealed a BUN of 140 and creatinine of 2.55. Patient states she was having vomiting for the last 2- 3 days. Her oral intake has been minimal. She denies any diarrhea. Denies any chest pain or shortness of breath. She's been receiving IV fluids and her creatinine today is 1.97 and BUN is down to 108. Her appetite is gradually improving. Should Mr. good urine output. She is a Wong catheter in place. Her renal ultrasound revealed no evidence of hydronephrosis. Her urinalysis is benign. She is not on any nephrotoxic medications. She is stable hemodynamically. Vital signs are stable. General: The patient appeared well nourished and normally developed. HEENT: Head exam is unremarkable. Neck is without jugular venous distension. LUNGS: Lungs are clear to auscultation and percussion. Breath sounds decreased. HEART: Rate and Rhythm are regular. First and second heart sounds normal. No murmurs, rubs or gallops. ABDOMEN: Abdominal exam reveals normal bowel sounds. Non-tender and non- distended. No evidence of peritonitis. EXTREMITITES: No clubbing, cyanosis, or edema. Past Medical History Past Medical History: Atrial Fibrillation, Coronary Artery Disease (CAD), Eye Disorder, GERD/Reflux, Hyperlipidemia, Hypertension, Osteoarthritis (OA), Renal Disease, Thyroid Disorder Additional Past Medical History / Comment(s): Pt is a Yarsanism and cannot receive blood. 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 History of Any Multi-Drug Resistant Organisms: None Reported Past Surgical History: No Surgical Hx Reported, Cardiac Valve Replacement, Heart Catheterization, Orthopedic Surgery Additional Past Surgical History / Comment(s): 12/2016 L femur IT nailing, 2015 TAVR at [facility], bilateral cataract removal and intraocular lens implants with complications, ? [place] [facility] [place] Past Anesthesia/Blood Transfusion Reactions: No Reported Reaction Past Psychological History: Anxiety Additional Psychological History / Comment(s): Pt is a Yarsanism and states she cannot receive blood. She is residing at [facility] since 12/2016 for rehab after fall with L femur fx and surgery. She states staff is assisting her up into a chair. States she feeds herself but needs help with other ADls. Pt is from [facility] and is fluent in Turkish. She reads and writes in Turkish. She can understand Andorran somewhat-speak slowly. Smoking Status: Never smoker Past Alcohol Use History: None Reported Additional Past Alcohol Use History / Comment(s): Patient states she is a nonsmoker and denies any alcohol use. Past Drug Use History: None Reported - Past Family History Mother Family Medical History: Thyroid Disorder Additional Family Medical History / Comment(s): Mother at age 86 had surgery on her neck, possibly heart surgery as well. Father Additional Family Medical History / Comment(s): Father when he was young while in the [employer]. Brother(s) Additional Family Medical History / Comment(s): Patient has 3 full brothers and one half-brother with no major medical problems. Sister(s) Additional Family Medical History / Comment(s): Patient has one half sister that of cancer of unknown type. Patient does not have any children. Medications and Allergies Home Medications Medication Instructions Recorded Confirmed Type Isosorbide Mononitrate ER [Imdur] 30 mg PO DAILY 01/02/16 01/12/17 History Omeprazole [PriLOSEC] 40 mg PO DAILY 01/02/16 01/12/17 History Levothyroxine Sodium [Synthroid] 100 mcg PO DAILY@1700 01/03/16 01/12/17 History Aspirin EC [Ecotrin Low Dose] 81 mg PO DAILY 11/15/16 01/12/17 History Atorvastatin [Lipitor] 40 mg PO HS 11/15/16 01/12/17 History Carvedilol [Coreg] 3.125 mg PO BID 11/15/16 01/12/17 History Multivitamins, Thera [Multivitamin] 1 tab PO HS 11/15/16 01/12/17 History Amino Acids/Protein Hydrolys 30 ml PO BID@0800,1600 01/12/17 01/12/17 History [Pro-Stat Supplement] Calcium Carbonate [Calcium] 600 mg PO TID@0800,1200,1800 01/12/17 01/12/17 History Cholecalciferol [Vitamin D3] 2,000 unit PO DAILY 01/12/17 01/12/17 History Ferrous Sulfate [Feosol] 325 mg PO BID 01/12/17 01/12/17 History HYDROcodone/APAP 5-325MG [[place] 1 tab PO Q4HR PRN 01/12/17 01/12/17 History 5-325] HYDROcodone/APAP 5-325MG [[place] 2 tab PO Q4HR PRN 01/12/17 01/12/17 History 5-325] Allergies Allergy/AdvReac Type Severity Reaction Status Date / Time ampicillin Allergy Swelling Verified 01/12/17 08:13 erythromycin base Allergy Swelling Verified 01/12/17 08:13 Physical Exam Vitals: Vital Signs Temp Pulse Resp BP Pulse Ox 01/13/17 15:00 96.3 F L 72 18 135/56 96 01/13/17 07:00 97.6 F 63 20 110/52 96 01/12/17 23:00 97.3 F L 67 17 134/60 98 Intake and Output 01/13/17 01/13/17 01/13/17 06:59 14:59 22:59 Intake Total 1320 120 Output Total 1700 Balance -380 120 Intake: IV 1320 Sodium Chloride 0.9% 1, 1320 000 ml @ 120 mls/hr IV . Q8H20M [facility] Rx#:[id number] Oral 120 Output: Urine 1700 Other: Voiding Method Indwelling Catheter Indwelling Catheter Weight 68.039 kg Patient Weight 01/14/17 06:59 Weight 68.039 kg Results - Lab Results Most recent lab results Calcium 8.9 mg/dL (8.4-10.2) 01/13/17 07:54 Phosphorus 5.1 mg/dL (2.5-4.5) H 01/12/17 08:25 Magnesium 2.3 mg/dL (1.6-2.3) 01/12/17 08:25 01/13/17 07:54 01/13/17 07:54 Assessment and Plan Plan: Assessment: #1. Nonoliguric acute kidney injury mostly prerenal in nature secondary to vomiting. Improving. Creatinine was 2.5 at admission and is down to 1.97 today. #2. Hypokalemia secondary to poor intake and vomiting. Potassium level 3.4. #3. Chronic kidney disease stage III. Baseline creatinine 1.3-1.5 secondary to nephrosclerosis. Plan: Maintain normal saline to be run at 100 mL an hour. Encourage oral intake as tolerated. Replace potassium. 40 mEq today. Avoid nephrotoxic agents and hypotensive episodes. Repeat electrolytes in the morning. Thank you for the consultation. I'll continue to follow the patient with you during her hospital stay.
[2017-01-13] MEDS: LEVOTHYROXINE 100 MCG TAB PO SCH (18:30)
[2017-01-13] MEDS: ATORVASTATIN 40 MG TAB PO SCH (21:52)
[2017-01-13] MEDS: MULTIVITAMINS, THERA 1 EACH TAB PO SCH (21:53)
[2017-01-13] MEDS: MIRTAZAPINE 15 MG TAB PO SCH (21:53)
[2017-01-14] MEDS: SODIUM CHLORIDE 0.9% 1,000 ML IV SCH ×2 (05:41→13:34)
[2017-01-14 08:35] VITALS: BP 145/66; PULSE 64; RESP 18; TEMP 97.4
[2017-01-14 09:25] LABS: Calcium 9.6 mg/dL (8.4-10.2); Magnesium 1.8 mg/dL (1.6-2.3); Potassium 4.2 mmol/L (3.5-5.1)
--- NOTE | 2017-01-14 09:52 | ECHOF ---
Referral Reason:troponin elevation MEASUREMENTS -------- HEIGHT: 152.4 cm WEIGHT: 68.0 kg BP: 110/52 RVIDd: 2.2 cm (< 3.3) IVSd: 0.7 cm (0.6 - 1.1) LVIDd: 3.9 cm (3.9 - 5.3) LVPWd: 1.0 cm (0.6 - 1.1) IVSs: 1.4 cm LVIDs: 2.7 cm LVPWs: 1.3 cm LA Diam: 3.9 cm (2.7 - 3.8) LAESV Index (A-L): 25.51 ml/m Ao Diam: 2.3 cm (2.0 - 3.7) AV Cusp: 1.2 cm (1.5 - 2.6) LA Diam: 2.5 cm (2.7 - 3.8) MV EXCURSION: 10.325 mm (> 18.000) MV EF SLOPE: 21 mm/s (70 - 150) EPSS: 1.2 cm MV E John: 1.06 m/s MV DecT: 277 ms MV A John: 1.05 m/s MV E/A Ratio: 1.01 AV maxP.21 mmHg AV meanP.63 mmHg AR PHT: 3032 ms FINDINGS -------- Sinus rhythm. This was a technically adequate study. Left ventricular wall thickness is normal. Overall left ventricular systolic function is normal with, an EF between 55 - 60 %. The right ventricle is normal in size. Normal LA size by volume 22+/-6 ml/m2. The right atrium is normal in size. There is moderate aortic valve sclerosis. There is mild aortic regurgitation. Peak/mean gradient across the Aortic Valve is 7.21mmHg / 3.63mmHg. The mitral valve leaflets are moderately thickened. Moderate mitral annular calcification present. The peak and mean MV gradients are 5.10mmHg 1.87mmHg as measured by doppler. Mild tricuspid regurgitation present. Trace/mild (physiologic) pulmonic regurgitation. The aortic root size is normal. Normal inferior vena cava with normal inspiratory collapse consistent with estimated right atrial pressure of 5 mmHg. Echo free space may represent effusion or a pericardial fat pad. CONCLUSIONS -------- 1. Sinus rhythm. 2. Peak/mean gradient across the Aortic Valve is 7.21mmHg / 3.63mmHg. 3. The mitral valve leaflets are moderately thickened. 4. Moderate mitral annular calcification present. 5. The peak and mean MV gradients are 5.10mmHg 1.87mmHg as measured by doppler. 6. Mild tricuspid regurgitation present. 7. Trace/mild (physiologic) pulmonic regurgitation. 8. The aortic root size is normal. 9. Normal inferior vena cava with normal inspiratory collapse consistent with estimated right atrial pressure of 5 mmHg. 10. Echo free space may represent effusion or a pericardial fat pad. 11. This was a technically adequate study. 12. Left ventricular wall thickness is normal. 13. Overall left ventricular systolic function is normal with, an EF between 55 - 60 %. 14. The right ventricle is normal in size. 15. Normal LA size by volume 22+/-6 ml/m2. 16. The right atrium is normal in size. 17. There is moderate aortic valve sclerosis. 18. There is mild aortic regurgitation. PLANT TOUR GUIDE: Jolanta Carcamo RDCS
[2017-01-14] MEDS: HEPARIN SODIUM,PORCINE 5,000 UNIT/ML 1 ML VIAL SQ SCH (10:16)
[2017-01-14] MEDS: ISOSORBIDE MONONITRATE ER 30 MG TAB.ER.24H PO SCH (10:17)
[2017-01-14] MEDS: CALCIUM CARBONATE 500 MG CHEWABLE PO SCH ×2 (10:17→13:44)
[2017-01-14] MEDS: DOCUSATE 100 MG CAP PO SCH (10:17)
[2017-01-14] MEDS: FERROUS SULFATE 325 MG TAB PO SCH (10:17)
[2017-01-14] MEDS: CARVEDILOL 3.125 MG TAB PO SCH (10:17)
[2017-01-14] MEDS: ASPIRIN 81 MG CHEW PO SCH (10:17)
[2017-01-14] MEDS: PANTOPRAZOLE 40 MG TABLET PO SCH (10:17)
--- NOTE | 2017-01-14 10:20 | P.PN ---
Subjective Patient is seen in follow-up for acute kidney injury. Patient has chronic kidney disease stage III secondary to nephrosclerosis with baseline creatinine in the range of 1.3-1.5. Renal function continues to improve with creatinine down to 1.5 today. Her oral intake has significantly improved. Denies any vomiting or diarrhea. Vital signs are stable. General: The patient appeared well nourished and normally developed. HEENT: Head exam is unremarkable. Neck is without jugular venous distension. LUNGS: Lungs are clear to auscultation and percussion. Breath sounds decreased. HEART: Rate and Rhythm are regular. First and second heart sounds normal. No murmurs, rubs or gallops. ABDOMEN: Abdominal exam reveals normal bowel sounds. Non-tender and non- distended. No evidence of peritonitis. EXTREMITITES: No clubbing, cyanosis, or edema. Objective - Vital Signs Vital signs: Vital Signs Temp 97.4 F L 01/14/17 07:00 Pulse 64 01/14/17 07:00 Resp 18 01/14/17 07:00 BP 145/66 01/14/17 07:00 Pulse Ox 97 01/14/17 07:00 Intake & Output 01/13/17 01/14/17 01/14/17 18:59 06:59 18:59 Intake Total 120 400 Output Total 1300 1900 Balance -1180 -1500 Weight 68.039 kg Intake: Oral 120 400 Output: Urine 1300 1900 Other: Voiding Method Indwelling Catheter Indwelling Catheter Indwelling Catheter - Labs CBC & Chem 7: 01/13/17 07:54 01/14/17 08:36 Labs: Abnormal Lab Results - Last 24 Hours (Table) 01/14/17 Range/Units 08:36 Chloride 110 H (98-107) mmol/L BUN 60 H (7-17) mg/dL Creatinine 1.51 H (0.52-1.04) mg/dL Glucose 159 H (74-99) mg/dL Assessment and Plan Plan: Assessment: #1. Nonoliguric acute kidney injury mostly prerenal in nature secondary to vomiting. Improving. Creatinine was 2.5 at admission and is down to 1.5 today. #2. Hypokalemia secondary to poor intake and vomiting. Improved post replacement. #3. Chronic kidney disease stage III. Baseline creatinine 1.3-1.5 secondary to nephrosclerosis. Plan: Hep-Lock IV fluids. Encourage oral intake. Avoid nephrotoxic agents and hypotensive episodes. Repeat electrolytes in the morning. Stable to be discharged from nephrology standpoint and to follow-up as an outpatient in the next 2 weeks.
--- NOTE | 2017-01-14 10:52 | PN ---
An 87-year-old lady who was admitted to hospital with complex and multiple medical problems, that cardiology had been consulted for because of mildly elevated troponins. I did an echocardiogram on her. It shows that the prosthetic valve is functioning normally. LV function is normal and I do not appreciate any wall motion abnormalities. I reviewed this information with the patient. She is happy with it. On exam, comfortable at rest. Vital signs are stable. Chest exam reveals good air entry bilaterally. Heart exam reveals first and second heart sounds, ejection systolic murmur in the aortic area. Exam of the extremities reveals cellulitis. ASSESSMENT: 1. Mild troponin elevation of unclear clinical significance. 2. Status post aortic valve replacement. 3. Renal failure, mainly prerenal, getting better with hydration. Please hold diuretics. From cardiac standpoint, she does not require any further workup.
--- NOTE | 2017-01-14 11:57 | P.DS ---
Providers Date of admission: 01/12/17 09:52 Expected date of discharge: 01/14/17 Attending physician: Pierre Phillips Consults: 01/13/17 09:55 Consult Physician Routine Consulting Provider: Azeem Sawyer Consult Reason/Comments: elevated troponin Do you want consulting provider notified?: Yes Primary care physician: Wilfredo Villagran [facility] Course: 87-year-old female who does not speak Italian well one of Dr. Wilfredo Villagran's patient with past medical history of CAD, hypertension, hyperlipidemia and renal disease who was in the hospital last in 11/15/2016 for left IT fracture was repair with Dr. Haro and patient was discharged to go to [facility] in rehab where she has been there since. She is known to have stage I to stage II chronic kidney disease has been stable at the time with creatinine previously is down to 1.31. Patient blood test admitted [place] came back with extremely high BUN and creatinine consistent with acute kidney failure and more acute kidney injury can be ATN. Patient was sent to the emergency department at [facility] where was seen and evaluated with her number quite bit high patient was started on hydration Wong catheter and consult nephrology. Ultrasound of the kidney will be done. Patient has been having mild low-grade symptom of change mental status consistent with uremia. 01/13: Repeat kidney function reveals BUN of 108 and creatinine 1.97. Renal ultrasound showed left kidney calcification. Consult with nephrology in place. Patient has been seen by cardiology. Echocardiogram pending. 01/14: Patient has been seen by Dr. Frey with recommendations to continue normal saline IV fluids at 100 mL per hour. Repeat BUN 60 and creatinine 1.51. Patient encouraged to drink plenty of fluids. She will be discharged back to [facility] today in stable condition. Echocardiogram reveals EF 55-60% Discharge diagnoses: 1 acute kidney injury: Possibility of ATN is very high patient is known to have chronic kidney disease stage III 2 mild metabolic encephalopathy: Most likely secondary to acute uremia 3 CAD: No chest pain or angina 4 elevated troponin due to troponin leak 5 hypothyroidism: 6 history of severe aortic valve stenosis post total aortic valve placement 7 chronic diastolic congestive heart failure 8 hyperlipidemia 9 severe GERD 10 iron deficiency anemia Discharge plan: Return to [facility] Impression and plan of care have been directed as dictated by the signing physician. Barbie Dao nurse practitioner acting as scribe for signing physician. Patient Condition at Discharge: Good Plan - Discharge Summary New Discharge Prescriptions: ALPRAZolam [Xanax] 0.25 tab PO DAILY PRN #30 tab PRN Reason: Anxiety HYDROcodone/APAP 5-325MG [[place] 5-325] 1 tab PO Q4HR PRN #90 tab PRN Reason: Mild Pain Discharge Medication List Isosorbide Mononitrate ER [Imdur] 30 mg PO DAILY 01/02/16 [History] Omeprazole [PriLOSEC] 40 mg PO DAILY 01/02/16 [History] Levothyroxine Sodium [Synthroid] 100 mcg PO DAILY@1700 01/03/16 [History] Aspirin EC [Ecotrin Low Dose] 81 mg PO DAILY 11/15/16 [History] Atorvastatin [Lipitor] 40 mg PO HS 11/15/16 [History] Carvedilol [Coreg] 3.125 mg PO BID 11/15/16 [History] Multivitamins, Thera [Multivitamin] 1 tab PO HS 11/15/16 [History] Docusate [Colace] 100 mg PO BID #60 capsule 11/19/16 [Rx] Mirtazapine [Remeron] 15 mg PO HS #0 tab 11/23/16 [Rx] Amino Acids/Protein Hydrolys [Pro-Stat Supplement] 30 ml PO BID@0800,1600 [History] Calcium Carbonate [Calcium] 600 mg PO TID@0800,1200,1800 01/12/17 [History] Cholecalciferol [Vitamin D3] 2,000 unit PO DAILY 01/12/17 [History] Ferrous Sulfate [Iron (65 MG Elemental)] 325 mg PO BID 01/12/17 [History] ALPRAZolam [Xanax] 0.25 tab PO DAILY PRN #30 tab 01/14/17 [Rx] HYDROcodone/APAP 5-325MG [[place] 5-325] 1 tab PO Q4HR PRN #90 tab 01/14/17 [Rx] Follow up Appointment(s)/Referral(s): Wilfredo Villagran MD [Primary Care Provider] - 1 Week (after discharge from [facility]) Discharge Disposition: TRANSFER TO SNF/ECF
[2017-01-14] MEDS: CHOLECALCIFEROL 1,000 UNIT TAB PO SCH (13:44)
== END 2017-01-14 13:56 | DRG 682 ==
LOC: EC 07:27 → 4MS4W 09:52
PROVIDERS: ADMIT Internal Medicine Geriatric Medicine; ATTEND Internal Medicine Geriatric Medicine
PROC: 0T9B70Z Drainage of Bladder with Drainage Device, Via Natural or Artificial Opening (ICD-10-PCS; principal; 2017-01-12)
DX: N17.0 Acute kidney failure with tubular necrosis (principal); G93.41 Metabolic encephalopathy; I48.91 Unspecified atrial fibrillation; I13.0 Hypertensive heart and chronic kidney disease with heart failure and stage 1 through stage 4 chronic kidney disease, or unspecified chronic kidney disease; I50.32 Chronic diastolic (congestive) heart failure; I25.10 Atherosclerotic heart disease of native coronary artery without angina pectoris; I35.0 Nonrheumatic aortic (valve) stenosis; E87.6 Hypokalemia; N18.3 Chronic kidney disease, stage 3 (moderate); E03.9 Hypothyroidism, unspecified; E78.5 Hyperlipidemia, unspecified; K21.9 Gastro-esophageal reflux disease without esophagitis; D50.9 Iron deficiency anemia, unspecified; F41.9 Anxiety disorder, unspecified; Z96.1 Presence of intraocular lens; R11.10 Vomiting, unspecified; M17.0 Bilateral primary osteoarthritis of knee; N28.89 Other specified disorders of kidney and ureter; R74.8 Abnormal levels of other serum enzymes; M19.012 Primary osteoarthritis, left shoulder; M19.011 Primary osteoarthritis, right shoulder; Z79.82 Long term (current) use of aspirin; Z79.891 Long term (current) use of opiate analgesic; Z88.1 Allergy status to other antibiotic agents; Z88.0 Allergy status to penicillin; Z87.81 Personal history of (healed) traumatic fracture; Z95.2 Presence of prosthetic heart valve; Z79.899 Other long term (current) drug therapy; Z91.81 History of falling; Z87.440 Personal history of urinary (tract) infections; Z98.61 Coronary angioplasty status; R53.1 Weakness; Z98.42 Cataract extraction status, left eye; Z98.41 Cataract extraction status, right eye; Z80.9 Family history of malignant neoplasm, unspecified; Z82.49 Family history of ischemic heart disease and other diseases of the circulatory system
CPT/HCPCS: 36415; 74000; 76770; 80048; 80053; 81003; 82550; 82553; 83735; 84100; 84484; 85025; 85027; 85610; 85730; 87086; 93005; 93306; 96360; 96361; 99285

== ENCOUNTER → 2017-06-24 | Outpatient (CLI) | payer MEDICARE, OTHER ==
--- NOTE | 2017-06-24 09:28 | US ---
LOWER EXTREMITY VENOUS INSUFFICIENCY SIDE PERFORMED: Bilateral 1) Color flow is present and patency is documented in the following vessels. No DVT or SVT is noted . EIV Common Femoral Vein Deep Femoral Vein Femoral Vein Popliteal Vein Proximal Calf Veins Greater Saph Vein Upper Small Saph Vein 87 year old patient with left heel wound. 2) There is venous reflux noted at the following venous levels: Right GSV IMPRESSION: Venous reflux noted within the great saphenous vein. No evidence of deep venous thrombosi s.
== END | disposition home or self-care (01) ==
LOC: RADUSWWP 07:41
PROVIDERS: ATTEND Podiatrist
DX: I87.2 Venous insufficiency (chronic) (peripheral) (principal); M79.605 Pain in left leg
CPT/HCPCS: 93923; 93970